=== PATIENT | male | born 1975 | race Caucasian/White ===

== ENCOUNTER → 2017-11-21 14:07 | Outpatient (CLI) | payer OTHER, SELFPAY ==
--- NOTE | 2017-11-21 | LES_PTH ---
PATIENT: TRACY MANRIQUE Jr. LOC: JUS U#:[id number] AGE/SX: 49/M ROOM: RE11/21/[address]: Dr. Poli Templeton MD : 1975 BED: DIS: SPEC #: [id number] RECD: 11/21/17 14:38 STATUS: BASILIO RALF #: [id number] JEY: 11/21/17 00:[address]: Poli Templeton DEPT: SURGICAL PATHOLOGY RECD BY: Alejandro Barrera ENTERED: 11/21/17 14:39 SP TYPE: Lesion OTHR DR: Dr. Viraj Arias MD Tissues: Skin of neck, NOS Procedures: Surgery Specimen Level IV HEADER OPERATION: Shave biopsy skin lesion anterior neck PRE-OP DIAGNOSIS: Anterior neck skin lesion TISSUE SUBMITTED: Shave biopsy skin lesion anterior neck MICROSCOPIC DIAGNOSIS Anterior neck skin lesion, shave biopsy: Consistent with benign keratosis. SJ:jack 11/22/17 MICROSCOPIC DESCRIPTION Slides are reviewed. GROSS DESCRIPTION Received in fixative is one container labeled with the patient's name and designated skin lesion anterior neck. The specimen consists of a piece of luu-white skin measuring 0.3 x 0.2 x 0.1 cm. The entire specimen is submitted in one cassette. / SJ:rg 11/21/17 TC:5 CPT: 78919
== END ==
PROVIDERS: Family Provider Family Medicine; PCP Family Medicine; Visit Provider Surgery
DX: L98.9 Disorder of the skin and subcutaneous tissue, unspecified (principal)
CPT/HCPCS: 88305

== ENCOUNTER 2018-03-15 19:40 | Emergency (ER) | payer OTHER, SELFPAY ==
[2018-03-15 19:41] VITALS: BP 177/118; PULSE 75; RESP 20; TEMP 36.7; O2SAT 97; BMI 32.5
--- NOTE | 2018-03-15 19:54 | CT_ITS ---
STUDY: CT CERVICAL SPINE WITHOUT CONTRAST REASON FOR EXAM: Male, 42 years old. Neck pain. RADIATION DOSAGE (If Supplied By Facility): CTDIvol = ( 27.23 ) mGy, DLP = ( 596.65 ) mGycm TECHNIQUE: High resolution transaxial imaging was performed without contrast material. Sagittal and coronal images were reconstructed. Individualized dose optimization techniques were used for this CT. COMPARISON: None FINDINGS: Normal craniovertebral junction. Normal anterior atlantoaxial articulation. Normal odontoid process. Normal cervical lordosis. Normal vertebral bodies and posterior osseous elements. C2-3: Normal endplates. Normal disc height and morphology. Normal central canal and intervertebral neuroforamina. C3-4: Normal endplates. Normal disc height and morphology. Normal central canal and intervertebral neuroforamina. C4-5: Normal endplates. Normal disc height and morphology. Normal central canal and intervertebral neuroforamina. C5-6: Endplate spondylosis. Central and paracentral disc bulge. Degenerative changes of the bilateral facet joints and uncovertebral joints. Moderate narrowing of the central canal and the bilateral intervertebral neural foramina. C6-7: Endplate spondylosis. Central and paracentral disc bulge. Degenerative changes of the bilateral facet joints and uncovertebral joints. Moderate narrowing of the central canal and the bilateral intervertebral neural foramina. C7-T1: Normal endplates. Normal disc height and morphology. Normal central canal and intervertebral neuroforamina. Normal visualized soft tissue structures. CT/Spine Cervical without Contras IMPRESSION: C5-6 and C6-7 degenerative changes, as described above. Electronically Signed: John Peñaloza MD at 20:58 EST Tel , Service support ,
--- NOTE | 2018-03-15 19:54 | CT_ITS ---
STUDY: CT BRAIN WITHOUT CONTRAST REASON FOR EXAM: Male, 42 years old. BLACKED OUT AND FELL AND HIT HEAD, LAC POSTERIOR RADIATION DOSAGE (If Supplied By Facility): CTDIvol = ( 44.99 ) mGy, DLP = ( 812.98 ) mGycm TECHNIQUE: Transaxial CT imaging of the brain was performed without administration of intravenous contrast material. Individualized dose optimization techniques were used for this CT. COMPARISON: None. FINDINGS: There is subcutaneous hematoma occipital region measures approximately 5 cm in greatest diameter and 1 cm in maximum thickness.. Normal calvarium. Normal size ventricles and extra-axial spaces for the patient's age. Normal white matter tracts of the cerebral hemispheres. Normal basal ganglia and thalami. Normal brainstem. Normal cerebellum. There is no intracranial hemorrhage. There are no findings of an acute ischemic infarction. There is mucoperiosteal inflammatory disease of the paranasal sinuses consistent with mild chronic sinusitis. CT/Brain/Head without Contrast IMPRESSION: There is no intracranial hemorrhage. Electronically Signed: John Peñaloza MD at 20:50 EST Tel , Service support ,
[2018-03-15] MEDS: Lidocaine/Epi/Tetracaine 50 ML 1 APPLIC TOPICAL (20:08)
--- NOTE | 2018-03-15 20:16 | ED.VISSUMM ---
- ER Visit Summary Date of Service: 03/15/18 Chief Complaint: Fall History of Present Illness: The patient is a 42 M presenting after fall. Patient slipped on ice and fell hitting the back of his head. He believes he briefly lost consciousness. He has pain to the back of his head with laceration. He is not on anticoagulants. He has had no vomiting. His tetanus is up-to-date. He denies other complaints. Physical Examination: Vitals are stable. Patient is afebrile. Alert no acute distress. HEENT exam 4 cm posterior scalp laceration with hematoma Neck is mild diffuse tenderness, no step off Lungs are clear and equal bilaterally. Heart is regular rate and rhythm. Abdomen is soft nontender nondistended. Extremities are unremarkable. Skin is warm and dry. No focal neurologic deficit. Remainder of exam is unremarkable. Emergency Department Course and Treatment: Laceration was cleansed, anesthesized with LET. Irrigated with saline. Anesthetized with local lidocaine. 4 alka are placed. 1, 5-0 simple suture was placed. CT head shows no intracranial bleeding. CT C-spine shows degenerative changes. Advised wound care instructions. Advised to follow-up with primary care physician. Advised return to ED if worsening complaints. Disposition: Discharge home Impression: Closed head injury, scalp laceration, laceration repair This note was generated with [employer] dictation software. It may contain incorrect words, spelling, and punctuation that were not noted in review of the chart prior to signing ED Disposition - Plan for ED Patient: Chief Complaint: Fall Instructions: ED Head Injury Closed Referrals: Viraj Arias MD [Primary Care Provider] -
--- NOTE | 2018-03-15 20:56 | ED.DEP ---
ED Disposition - Plan for ED Patient: Chief Complaint: Fall Instructions: ED Head Injury Closed Referrals: Viraj Arias MD [Primary Care Provider] -
== END 2018-03-15 21:31 | disposition home or self-care (01) ==
PROVIDERS: Emergency Provider Emergency Medicine; Family Provider Family Medicine; PCP Family Medicine
DX: S01.01XA Laceration without foreign body of scalp, initial encounter (principal); W00.9XXA Unspecified fall due to ice and snow, initial encounter; Y93.9 Activity, unspecified; Y92.9 Unspecified place or not applicable
CPT/HCPCS: 12002; 70450; 72125; 99283

== ENCOUNTER 2021-06-19 13:45 | Emergency (ER) | payer OTHER, SELFPAY ==
[2021-06-19] VITALS (7 sets, daily range): BP systolic 151–193; BP diastolic 91–115; PULSE 10–106; RESP 18–27; TEMP 37.3; O2SAT 93–97; BMI 31.5
--- NOTE | 2021-06-19 13:48 | EKG12_ITS ---
Test Reason : STROKE Blood Pressure : / mmHG Vent. Rate : 100 BPM Atrial Rate : 100 BPM P-R Int : 144 ms QRS Dur : 088 ms QT Int : 344 ms P-R-T Axes : 038 006 012 degrees QTc Int : 443 ms Normal sinus rhythm Poor R wave progression ST & T wave abnormality, consider lateral ischemia Abnormal ECG Confirmed by MAGDA FERGUSON, LUNA ([id number]), design editor SHILPI RAM ([id number]) on 06/20/2021 8:56:24 AM Referred By: Confirmed By:LUNA MAN MD
--- NOTE | 2021-06-19 13:48 | CT_ITS ---
We are attempting to reach an attending provider to discuss findings. An addendum with communication details will be sent when the communication is complete. STUDY: CT HEAD STROKE PROTOCOL W/O CONTRAST INJECTION REASON FOR EXAM: Male, 46 years old. Neuro deficit, acute, stroke suspected RADIATION DOSAGE (If Supplied By Facility): CTDIvol = ( ) mGy, DLP = ( ) mGycm TECHNIQUE: Transaxial CT imaging of the brain was performed without administration of intravenous contrast material. Individualized dose optimization techniques were used for this CT. COMPARISON: No relevant priors. FINDINGS: There is a parenchymal hematoma visualized within the right basal ganglia measuring 3.8 cm suggestive of a right lenticulostriate hypertensive hematoma. Mild the lateral side of subtle surrounding vasogenic edema is visualized. No evidence of other parenchymal hemorrhages is seen. No areas of low attenuation to suggest acute territorial infarct visualized. Mild asymmetry in the lateral ventricles is seen. Subtle circumferential mucoperiosteal disease visualized in the paranasal sinuses. The bones are unremarkable. CT/STROKE Brain/Head without Cont IMPRESSION: Right basal ganglia parenchymal hematoma measuring 3.8 cm suggestive of a right lenticulostriate hypertensive hematoma. Results were communicated to the patient''s physician at time of interpretation of the study at 2:00 PM. Electronically Signed: Howie Bethea MD at 14:04 EDT ,
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
[2021-06-19] MEDS: Nicardipine HCl-0.9% Sod Chlor 20 MG/200 ML IV.SOLN 50 MG IV (14:11)
[2021-06-19 14:12] LABS: Absolute Lymphocyte Count 3.03 X10^3/uL (0.83-4.51); Absolute Neutrophil Count 3.4 X10^3/uL (2.0-7.7); Basophil# 0.04 X10^3/uL; Basophil% 0.5 % (0-1); Eosinophil# 0.21 X10^3/uL; Eosinophils% 2.8 % (0-5); Hematocrit 47.3 % (40-54); Hemoglobin 16.6 g/dL (13.0-16.5); Lymphocyte # 3.03 X10^3/ul (0.83-4.51); Lymphocyte % 40.5 % (19-41); Mean Corp Hgb Conc 35.1 g/dL (32-36); Mean Corpuscular Hgb 33.5 pg (27.0-32.0); Mean Corpuscular Volume 95.6 fL (80-94); Mean Platelet Vol. 10.2 fl (6.2-12.0); Monocyte# 0.82 X10^3/uL; Monocyte% 10.9 % (0-10); NRBC Flagged by Analyzer 0 % (0-5); Neutrophil # 3.36 X10^3/uL (2.7-7.7); Neutrophil % 44.9 % (47-70); Platelet Count 234 K/mm3 (150-450); RBC Distribution Width CV 11.9 % (11.6-14.6); RBC Distribution Width SD 41.2 fl (35.1-43.9); Red Blood Count 4.95 M/mm3 (4.6-6.2); White Blood Count 7.5 K/mm3 (4.4-11.0)
[2021-06-19 14:22] LABS: International Normalized Ratio 1.1; Partial Thromboplast Time 26.6 Seconds (24.1-36.2); Prothrombin Time (Protime)PT. 13.4 SECONDS (11.7-14.9)
--- NOTE | 2021-06-19 14:27 | CM.ED ---
Addendum entered by Beckie Campbell 06/19/21 15:15: UNA Note: UNA provided patient's with directions to [facility] and information on parking Beckie KRAMER Original Note: UNA Note Referral Source: Stroke Alert Referral Reason: Stroke Alert SW met with patient's Larry and provided emotional support. UNA provided her with the address to [facility] ED. Plan: [facility] Beckie KRAMER
[2021-06-19 14:30] LABS: Anion Gap 10 (5-15); BUN 14 mg/dL (7-18); BUN/Creat Ratio 14.2 RATIO (10-20); Calcium,Total 9.3 mg/dL (8.5-10.1); Chloride 102 mmol/L (98-107); Creatinine, Serum 0.99 mg/dL (0.70-1.30); EST Glomerular Filtration Rate 86 mL/min (>60); Est Glom Filt Rate - Afr Amer 104 mL/min (>60); Estimated Creatinine Clearance 97.19 ml/min; Glucose 176 mg/dL (74-106); Potassium 3.3 mmol/L (3.5-5.1); Sodium Level 138 mmol/L (136-145); Troponin-I HS 6 pg/mL (3.0-78.0)
--- NOTE | 2021-06-19 14:35 | RAD_ITS ---
INDICATION: Neuro deficit, acute, stroke suspected EXAMINATION/TECHNIQUE: X-RAY - XR Chest 1 View COMPARISON: None. FINDINGS: Poor inspiratory effort is seen that limits evaluation. LINES/DEVICES: None. LUNGS: No consolidation, edema or effusion. No pneumothorax. Mild prominence of the perihilar bronchovascular markings most likely artifactual due to the poor inspiratory effort. MEDIASTINUM AND CARDIOVASCULAR STRUCTURES: Cardiac silhouette is apparently slightly prominent however this is most likely artifactual due to the poor inspiratory effort. BONES AND SOFT TISSUES: Unremarkable. RAD/Chest 1 View IMPRESSION: No radiographic evidence of acute cardiopulmonary disease. Electronically Signed: Howie Bethea MD at 15:10 EDT Reading Location ID and State: [facility] / [place] Tel , Service support ,
[2021-06-19 14:36] LABS: Bedside Glucose 174 mg/dL (74-106)
[2021-06-19] MEDS: fentaNYL 100 MCG/2 ML Ampul 25 MCG IV (14:51)
[2021-06-19] MEDS: Ondansetron 4 MG/2 ML Vial IV (14:51)
--- NOTE | 2021-06-19 15:19 | CHAPLAIN ---
Type of Pastoral Visit ___ Initial Visit ___ Follow-up Visit ___ On-call Visit ___ General Patient Visit ___ Spiritual Assessment ___ Family Conference ___ Bereavement _x__ Rapid Response ___ Code Blue ___ Other (describe below) Pastoral Care Referral From ___ Patient ___ Family ___ Nurse ___ Physician ___ Special Skills Officer ___ Vamp Seamer _x__ Other (describe below) Sacrament/Intervention ___ Active listening ___ Anointing ___ Hindu ___ Bereavement ___ Communion ___ Sumaya exploration ___ ___ Life review ___ Prayer ___ Reconciliation ___ Sacrament of Sick _x__ Supportive presence ___ Wedding ___ Other (describe below) Pastoral Comments was in ED and witnessed this patient walk in and declare I'm having a stroke to screener; pt was taken to room one and then to CT scan immediately; waited for spouse to come which she did; offered support and presence; support declined by spouse; pt is to be transferred to [place] for further treatment
--- NOTE | 2021-06-19 15:21 | ED.RN ---
[facility] crew has requested another bag of nicardipine for transport to [facility]. Pharmacy has been notifie.
== END 2021-06-19 15:24 | disposition short-term general hospital (02) ==
PROVIDERS: Emergency Provider Emergency Medicine; PCP Family Medicine; Visit Provider Emergency Medicine
DX: S00.93XA Contusion of unspecified part of head, initial encounter (principal); X58.XXXA Exposure to other specified factors, initial encounter
CPT/HCPCS: 70450; 71045; 80048; 82962; 84484; 85025; 85610; 85730; 93005; 96365; 96375; 99285; A4216; J2405

== ENCOUNTER 2021-06-27 15:04 | Inpatient (IN) | payer OTHER, SELFPAY ==
[2021-06-27 15:18] VITALS: BP 126/85; PULSE 68; RESP 16; TEMP 36.7; O2SAT 99; BMI 30.4
--- NOTE | 2021-06-27 15:18 | HP.PCM_ITS ---
[facility] - General General Date of Admission: 06/27/21 HPI Narrative TRACY MANRIQUE, is a 46 YO M with obesity and daily ETOH use/abuse ( stated at [facility] that he has 2-3 mixed hard liquor drinks per day and he was honest with me today and told me this as well) who presented to the ED at [facility] on 06/19/2021 complaining of sudden onset of left arm weakness and difficulty speaking while driving. He was on the phone with his at the time of onset. He pulled over and was unable to open the car door with his left arm and then proceeded drive himself to the ED. He felt off balance when walking into the emergency department. He was on no medications (including OTC meds) and denied any significant past medical history. Blood pressure at arrival to the emergency room was 193/115 with a pulse rate of 101. NIHSS at presentation was 7 and it increased to 12 while he was in the ED being worked up. Noncontrast CT brain showed a right basal ganglia parenchymal hematoma measuring 3.8 cm suggestive of a right lenticulostriate hypertensive hematoma. The EKG showed poor R wave progression and a nonspecific ST and T wave abnormality possibly due to lateral ischemia. He was started on a nicardipine drip and the ED physician contacted neurosurgery at [facility] who accepted him for transfer. Significant lab at [facility] included an elevated hemoglobin at 16.6 with an MCV increased at 95.6. Platelet count was normal. PT and PTT were normal. Random glucose was 176. High-sensitivity troponin was normal at 6. No drug screen was done. The initial NIHSS upon arrival to [facility] was 13. CTA of the head and neck was negative. He was admitted to the neuro-intensive care unit. MRI obtained the following day showed a right basal ganglia parenchymal hematoma with surrounding edema, mass-effect and a leftward shift of 7 mm. The findings were unchanged from previous CAT scans. There was no evidence of underlying enhancement or significant surrounding restricted diffusion. No surgical intervention was required. On 06/26/2021 he had diagnostic angiography in order to rule out a structural vascular lesion. The angiogram was normal without evidence of arteriovenous malformation or aneurysm. HGBA1C was 7.3% at [facility]. Total cholesterol was 213. Triglycerides were 80 and the HDL was 42 with a total calculated LDL of 155. NIHSS at [place] from [facility] was 8 ( facial palsy 2, left arm weakness 3, left leg weakness 1, numbness 1 and dysarthria 1). He did not have a TTE while at [facility]. Medications at discharge included 40 mg atorvastatin daily, enoxaparin 40 mg subcu daily for DVT prophylaxis, , lisinopril 10 mg twice daily and Glucophage 500 mg p.o. twice daily. Mr. Manrique was transferred to the in acute rehab unit at [facility] on 06/27/21 for 3 hours of therapy daily to restore function/independence at or near his prior level of function. [facility] Medical History (Updated 06/27/21 @ 17:[address] Monserrat Longoria DO) Obesity (BMI 30.0-34.9) Home Medications atorvastatin 40 mg PO QHS 06/27/21 [History Last Taken Unknown] lisinopril 10 mg PO BID 06/27/21 [History Last Taken Unknown] metformin 500 mg PO BID 06/27/21 [History Last Taken Unknown] Allergy/AdvReac Type Severity Reaction Status Date / Time acetaminophen [From Vicodin] Allergy PT UNSURE Verified 06/27/21 15:35 OF REACTION hydrocodone [From Vicodin] Allergy PT UNSURE Verified 06/27/21 15:35 OF REACTION Family History no significant family his Surgical History (Updated 06/27/21 @ 17:[address] Monserrat Longoria DO) H/O hernia repair H/O wisdom tooth extraction Skin tag Social History (Updated 06/27/21 @ 17:[address] Monserrat Longoria DO) adopted: No household members: spouse and other details: 1 son who is 16 months old. This is his 2nd marriage. 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 Vodka, Rum, [place]. He likes the taste. substance use type: does not use what type of physical activity do you participate in: additional details: no exercise other than walking around at work. ROS Constitutional Constitutional: Reports weakness; Denies anorexia, change in weight, chills, fatigue, fever(s) or night sweats Eyes Eyes: Denies blurry vision, change in vision, discharge from eye(s), double vision, erythema, eye pain, irritation, itchy eyes or loss of vision ENT HEENT: Reports dysphagia; Denies abnormal hearing, headache(s), hearing loss, loss taste/smell, nasal congestion, nasal discharge, post nasal drip, sinus pain or sore throat Cardiovascular Cardiovascular: Denies chest pain, claudication, dyspnea on exertion, edema, lightheadedness, orthopnea, palpitations, paroxysmal nocturnal dyspnea or syncope Respiratory/Chest Respiratory/Chest: Denies cough, dyspnea, shortness of breath at rest, shortness of breath with exertion or wheezing Gastrointestinal Gastrointestinal: Denies abdominal pain, constipation, diarrhea, dyspepsia, hematemesis, hematochezia, nausea or vomiting Genitourinary Genitourinary: Denies dysuria, hematuria, nocturia, urinary frequency, urinary hesitancy, urinary incontinence or urinary urgency Musculoskeletal Musculoskeletal: Denies back pain, joint pain, joint swelling or neck pain Integumentary Integumentary: Denies jaundice, rash or wounds Neurologic Neurologic: Reports abnormal gait, abnormal speech, focal weakness, lack of coordination, numbness, sensory deficit, tingling and weakness; Denies confusion, disequilibrium, dizziness, headache(s), paresthesias, seizures or tremor(s) Psychiatric Psychiatric: Reports other Details: He denies any hx of anxiety or depression but seems very tense when I am talking with him ; Denies anxiety, depression, homicidal ideation or suicidal ideation Endocrine Endocrinology: Denies change in body appearance, cold intolerance, heat intolerance, polydipsia or polyuria Hematologic/Lymphatic Hematologic/Lymphatic: Denies easy bleeding, easy bruising or lymphadenopathy Allergic/Immunologic Allergic/Immunologic: Denies rhinitis, eczemia or asthma Indicators for Scoring Admitted with or Primary Diagnosis of CVA/Stroke: Yes Hx of CVA/Stroke: Yes Modified Wilton Score MRS Score at time of Evaluation: 5-Severe disability NIHSS NIHSS 1a. Level of Consciousness: Alert; keenly responsive 1b. LOC Questions: Answers BOTH questions correctly. 1c. LOC Commands: Performs both tasks correctly. 2. Best Gaze: Normal 3. Visual: Complete hemianopia 4. Facial Palsy: Partial paralysis (total or near-total paralysis of lower face) 5a. Left Arm: No effort against gravity; arm falls 5b. Right Arm: No drift; arm holds 90 (or 45) degrees for full 10 seconds 6a. Left Leg: Drift; leg falls by the end of 5-seconds, but does not hit bed 6b. Right Leg: No drift; leg holds 30-degree position for full 5 seconds 7. Limb Ataxia: Absent 8. Sensory: [id number] sensory loss; (Left face, arm and leg.) 9. Best Language: [id number] aphasia; 10. Dysarthria: Hqhe-bq-felrbaaw dysarthria; 11. Extinction and Inattention: Visual, tactile, auditory, spatial, or personal inattention Total: 12 Stroke Questions Stroke Team Activated: No (The stroke has been completed and he is admitted to acute rehab unit now.) Physical Exam Const alert, oriented x3 and well nourished Constitutional Narrative: Seems a little update. He is frustrated about not being able to move himself around in the bed to get comfortable. Upper body is leaning to the left and he is unable to get straightened out. General Appearance: cooperative and well developed HEENT normocephalic and head/scalp atraumatic Mouth: dry mucous membranes Eyes PERRL and EOMs intact bilaterally Eyes Narrative: The left upper eyelid does not close as tightly as the left. Neck No nuchal rigidity, No nodes and No no carotid bruits General: trachea midline Lymph Lymphatic: Negative for lymphedema or lymphadenopathy Resp normal respiratory effort and clear to auscultation bilaterally Resp Narrative: Able to speak in complete sentences. Effort and Inspection: Negative for tachypneic, respiratory distress, labored or uses accessory muscles Auscultation: Negative for rales, rhonchi or wheezes Cardio regular rate, regular rhythm, S1 normal heart sound, S2 normal heart sound, no murmurs, no rub, no gallops and peripheral pulses 2+ throughout GI normal to inspection, nondistended, normoactive bowel sounds, soft to palpation and non-tender GI Narrative: No guarding with palpation Extremity no clubbing, cyanosis or edema and no calf tenderness Extremity Narrative: He bites his fingernails. General Extremity: no tenderness to palpation of joints or extremities Skin no jaundice and no petechiae Skin Narrative: The Left foot is cold to the touch and the toenails on that foot are blue. The DP and the PT pulses are 2+ BL. General Skin Exam: no breakdown and turgor normal Rashes: no rashes Wounds: Negative for wounds noted Neuro Neuro Narrative: See the NIHSS scoring. He can not lift the LUE off the bed but has some movement side to side. 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 He can lift the LLE off the bed a few inches and it drifts but did not hit the bed before 5 sec was up. Marked facial droop on the L. He is able to close his eyes BL but not as tightly on the L. He neglects the left side. Psych mental status grossly normal, cooperative, denies hallucinations, denies homicidal ideation and denies suicidal ideation Psych Narrative: He finally admitted to being upset about being where he is. Appearance: grossly normal, appropriate and well kempt Attitude: other He is obviously a little tense. Activity / Motor Behavior: fidgetting, restless and avoids eye contact Speech: slurred Mood & Affect: anxious and other He was irritable with nursing but, he was fine with me after we got talking. Thought Process: normal thought process Thought Content: normal thought content Attention / Concentration: attention grossly intact and concentration grossly intact Insight: fair Judgement: fair Assessment & Plan Assessment/Plan (1) Hemorrhagic stroke: (2) Essential (primary) hypertension: (3) Diabetes mellitus, type 2: (4) EtOH dependence: (5) Obesity (BMI 30.0-34.9): (6) Dyslipidemia: (7) Anxiety: PLAN: PLAN PT for gait stability OT for ADL's ST for evaluation Analgesics as needed - currently he has no pain and only Tylenol PRN has been ordered. Bowel protocol Post void residuals X3 Fall precautions Assess for Anxiety/Depression GI prophylaxis is not necessary. He has no history of peptic ulcer disease and he denies epigastric pain, nausea, vomiting, abdominal pain, heartburn. DVT prophylaxis with Lovenox 40 mg subcu daily and BALDEMAR hose bilaterally Follow up with neurology and Dr. Viraj Arias following DC from IP Rehab AM lab including CMP, CBC, Mag and Phos Trazodone PRN at HS for insomnia Obtain records of his last [address] Arias Needs a TTE following DC from rehab.......I am suspicious he may have LVH from uncontrolled HTN We discussed the SX of anxiety and depression and he will let me know if he is having any of the sx. I will also speak with his . Goal for the BP is < 120/80 LDL< 70 and a HGBA1C <7. Cook Dessert consult for education Education while in rehab to teach him his goals and how to prevent having another stroke. I think he may benefit from an SSRI but, will monitor for a few days and readdress his moods. Charges/Coding Visit Charges Inpatient E&M: 31922 Init Hosp L3
--- NOTE | 2021-06-27 15:39 | NURSING ---
pt arrived on unit. pt and made aware of Team and visiting hours, voices understanding
[2021-06-27 15:55] VITALS: BMI 30.4
[2021-06-27] MEDS: metFORMIN HCl 500 MG Tablet PO (17:03)
--- NOTE | 2021-06-27 18:02 | REHABEVAL_ITS ---
Admission Information Primary Diagnosis:: Post hemorrhagic stroke debility with L hemiparesis, mild aphasia, dysarthria, left homonymous hemianopia and left side neglect. Status Changes from Prescreening?: No changes Identified Actual Problem List:: Falls, Cognitve Impr/Memory Loss, Alteration in Sleep, Mobility Impaired, Self Care Deficit, Ineffective Communication, Know.Dfct/Disease Process, Know.Dfct of Medicaitons, BP, Hypertension and Alteration-Leisure Activ. Potential Problem List:: DVT, Bleeding, Infection, UTI, Aspiration, Falls, Skin Integrity and Depression Risk of Complications DVT: LMWH and BALDEMAR Hose Bleeding: Monitor Lab Values, Nursing to Teach Precautions for anti-coagulation therapy., Wound, if applicable, to be assessed every shift. and Stroke patients assessed for lethargy or change in status. Infection: Clinical Staff to Monitor for S/S of infection: and S/S of infection include fever, redness, warmth, etc. Urinary Tract Infection: Monitor for frequency, burning, discomfort, or incontinence. and Nursing will obtain urine sample for urinalysis and C&S when ordered. Aspiration: Clinical staff will monitor for coughing, drooling, congestion., Speech will evaluate swallowing and dsyphasia. and Nursing will monitor patient swallowing during meals. Falls: Patient will be evaluated for Fall Precautions and Patient will be placed on Fall Precautions as indicated per protocol. Skin Breakdown: Nursing will assess skin daily using assessment tool. and Nursing will place on Skin Breakdown Precautions as indicated. Pain: Clinical staff will assess patient's pain level per protocol., Medications will be given, if needed, and the pain level reassessed. and Other methods: Massage, distraction, decrease stimulus, etc. used PRN. Plan of Care Patient requires physician specializing in physical medicine and rehab oversight to provide close medical supervision of rehab issues including: Pain Management, Sleep Problems, Bowel and Bladder, Medical and co-morbidity Management, DVT prophylaxis, Rehabilitation Leadership and Coordination of treatment team Patient needs Physical Therapy: For a minimum of 1 hour and At least 5 out of 7 days Patient needs Physical Therapy to improve:: Mobility, Strengthening, Transfers, Stretching, ROM, Endurance, Stairs, Gait and Balance Patient needs Occupational Therapy: For a minimum of 1 hour and At least 5 out of 7 days Patient needs Occupational Therapy to improve ADL's incl.: Eating, Grooming, Bathing, Dressing, Toileting, Toilet transfers, Community Reintegration, Higher functioning activities, Household tasks, Adaptive Equipment, Splinting and Other activities as determined Patient requires speech therapy: For a minimum of 1 hour and At least 5 out of 7 days Patient requires speech therapy for: Swallowing, Cognition, Language Skills and Compensatory Strategies Patient requires 24/ Rehabilitation Nursing for: Pain Issues, Identifying and preventing risk factors, Monitoring and reporting current medical conditions, Assisting with ambulation, transfer, and all ADL's, Teaching patients about disease process and medications, Family teaching, Providing safe environment, Bowel and Bladder Issues, Skin integrity and Medication Management Patient needs Policy Writer Typist/ Case Management for: Discharge Planning, Arranging Home Equipment or Services and Family Interventions Patient needs Dietary and Nutrition Services for: Adequate Nutrition, Nutritional Supplements and Nutritional Education Goals Patient will remain: free from falls and or injury at time of discharge. Patient will perform bed mobility at: MOD I level of assist. Patient will complete transfers from bed to chair at: MOD I level of assist. Patient will ambulate: with LRD and - (200 feet at standby assist with the least restrictive device) Patient will complete upper body dressing at: Standby Assist. Patient will complete lower body dressing at: - (Contact-guard assist level with compensatory techniques and minimal cues for sequencing and to regard the left side) Patient will complete toileting at: - (On and off elevated commode and toileting tasks that contact-guard assist) Patient will perform bathing at: - (Minimal assistance with bathing tasks and contact-guard assist with shower chair/tub bench surfaces) Patient will complete grooming at: Standby Assist. Patient will achieve: - (1 curb step and 14 steps with 1 handrail at contact- guard assist to allow entry to his bedroom/bathroom.) Patient will have pain level of: of 3 or less Patient's skin will: remain intact Patient will receive: adequate nutrition. Discharge Planning Pt Prognosis for Sig. Practical Improv. w/in Reasonable Time: Good Estimated Length of stay (days): 28 Anticipated D/C Destination: Home w/ family or friends Was Preadmission Assessment Accurate?: Yes
[2021-06-27 18:47] VITALS: O2SAT 95
[2021-06-27 19:19] VITALS: BP 120/82; PULSE 74; RESP 16; TEMP 36.6; O2SAT 98
[2021-06-27 19:56] VITALS: PULSE 76; RESP 16
[2021-06-27] MEDS: Lisinopril 10 MG Tablet PO (20:03)
[2021-06-27] MEDS: Atorvastatin Calcium 40 MG Tablet PO (20:04)
[2021-06-27 23:19] VITALS: BMI 30.4
[2021-06-28 05:48] LABS: Absolute Lymphocyte Count 1.72 X10^3/uL (0.83-4.51); Absolute Neutrophil Count 2.7 X10^3/uL (2.0-7.7); Basophil# 0.03 X10^3/uL; Basophil% 0.5 % (0-1); Eosinophil# 0.16 X10^3/uL; Eosinophils% 2.9 % (0-5); Hematocrit 44.5 % (40-54); Hemoglobin 15.7 g/dL (13.0-16.5); Lymphocyte # 1.72 X10^3/ul (0.83-4.51); Lymphocyte % 31.3 % (19-41); Mean Corp Hgb Conc 35.3 g/dL (32-36); Mean Corpuscular Hgb 34.1 pg (27.0-32.0); Mean Corpuscular Volume 96.7 fL (80-94); Mean Platelet Vol. 10.2 fl (6.2-12.0); Monocyte# 0.82 X10^3/uL; Monocyte% 14.9 % (0-10); NRBC Flagged by Analyzer 0 % (0-5); Neutrophil # 2.74 X10^3/uL (2.7-7.7); Neutrophil % 49.9 % (47-70); Platelet Count 175 K/mm3 (150-450); RBC Distribution Width CV 11.9 % (11.6-14.6); RBC Distribution Width SD 42.3 fl (35.1-43.9); White Blood Count 5.5 K/mm3 (4.4-11.0)
[2021-06-28] MEDS: Enoxaparin 40 MG/0.4 ML Syringe SC (06:09)
[2021-06-28 06:45] LABS: Bedside Glucose 119 mg/dL (74-106)
[2021-06-28 06:53] LABS: ALB/GLOB Ratio 1.2 RATIO (0.9-2.4); AST(SGOT) 26 U/L (15-37); Alanine Aminotransfer ALT/SGPT 73 U/L (16-61); Albumin, Serum 3.9 g/dL (3.2-5.0); Alkaline Phosphatase 61 U/L (45-117); Anion Gap 6 (5-15); BUN 14 mg/dL (7-18); BUN/Creat Ratio 14.2 RATIO (10-20); Calcium,Total 8.8 mg/dL (8.5-10.1); Chloride 103 mmol/L (98-107); Creatinine, Serum 0.99 mg/dL (0.70-1.30); EST Glomerular Filtration Rate 86 mL/min (>60); Est Glom Filt Rate - Afr Amer 104 mL/min (>60); Estimated Creatinine Clearance 94.22 ml/min; Globulin 3.3 g/dL (2.2-4.2); Glucose 121 mg/dL (74-106); Magnesium 2.4 mg/dL (1.6-2.6); Phosphorus 3.4 mg/dL (2.5-4.9); Potassium 4.4 mmol/L (3.5-5.1); Protein, Total 7.2 g/dL (6.4-8.2); Sodium Level 135 mmol/L (136-145)
[2021-06-28 07:21] VITALS: BP 128/83; PULSE 59; RESP 18; TEMP 36.2; O2SAT 99
[2021-06-28] MEDS: metFORMIN HCl 500 MG Tablet PO ×2 (07:42→17:03)
[2021-06-28] MEDS: Lisinopril 10 MG Tablet PO ×2 (07:42→20:09)
[2021-06-28] MEDS: Acetaminophen 325 MG Tablet 650 MG PO ×2 (07:50→17:03)
--- NOTE | 2021-06-28 10:36 | PN_ITS ---
Subjective Subjective Afebrile VSS -the blood pressure has ranged from 120/82-120 6/85 since arrival in the rehab unit. Heart rate has ranged from 68-74. Maintaining appropriate oxygen saturation on RA Oral intake is being monitored He is not incontinent of urine and the post void residual last night was 0. Discussed with nursing - no problems that need addressed Reviewed the PT/OT/ST notes - The ST came to see me after she evaluated Jay and he has some very significant cognitive dysfunction. Not able to follow instructions. Not doing any of the tasks on the left hand side of the page. Can not understand why he is having to do these tasks. He does not see a problem with his thinking and is unaware of his deficits. He is impatient. Seems angry but denies. Medication list reviewed. The blood sugar record was reviewed. The FBS this morning is 119. All lab was personally reviewed. CBC is on remarkable with the exception of an increased MCV. Sodium is mildly decreased at 135 and the potassium is 4.4. The BUN is 14 with a creatinine of 0.99 which is stable. Phosphorus and magnesium are normal. ALT is mildly elevated but, the AST is normal. Objective Data Objective Data Vital Signs: Vital Signs Temp Pulse Resp BP Pulse Ox 97.2 F L 59 L 18 128/83 H 99 06/28/21 07:21 06/28/21 07:21 06/28/21 07:21 06/28/21 07:21 06/28/21 07:21 Oxygen Delivery Method Room Air Weight: 212 lb 8.41 oz Body Mass Index (BMI) 30.4 Intake & Output: Intake and Output for Last 24 Hours 06/26/21 06/27/21 06/28/21 23:59 23:59 23:59 Intake Total 390 / 390 510 / 510 Output Total 300 / 300 475 / 475 Balance 90 / 90 35 / 35 Lab / Micro Data Result Diagrams: 06/28/21 05:34 06/28/21 05:34 Labs: Laboratory Results - last 24 hr 06/28/21 05:34: WBC 5.5, RBC 4.60, Hgb 15.7, Hct 44.5, MCV 96.7 H, MCH 34.1 H, MCHC 35.3, RDW Std Deviation 42.3, RDW Coeff of Parrish 11.9, Plt Count 175, MPV 10.2, Immature Gran % (Auto) 0.500, Neut % (Auto) 49.9, Lymph % (Auto) 31.3, Rolette % (Auto) 14.9 H, Eos % (Auto) 2.9, Baso % (Auto) 0.5, Absolute Neuts (auto) 2.7, Absolute Lymphs (auto) 1.72, Nucleated RBC % 0 06/28/21 05:34: Sodium 135 L, Potassium 4.4, Chloride 103, Carbon Dioxide 26.0, Anion Gap 6, BUN 14, Creatinine 0.99, Estim Creat Clear Calc 94.22, Est GFR (MDRD) Af Amer 104, Est GFR (MDRD) Non-Af 86, BUN/Creatinine Ratio 14.2, Glucose 121 H, Calcium 8.8, Phosphorus 3.4, Magnesium 2.4, Total Bilirubin 1.00, AST 26, ALT 73 H, Alkaline Phosphatase 61, Total Protein 7.2, Albumin 3.9, Globulin 3.3, Albumin/Globulin Ratio 1.2 06/28/21 06:14: POC Glucose 119 H Physical Exam Const alert, oriented x3 and no apparent distress Constitutional Narrative: He is cooperating with therapy. Does not see the point of ST because he is unaware of the cognitive deficit which is considerable......I reviewed his testing from today with the ST. General Appearance: well kempt and well developed Eyes PERRL and EOMs intact bilaterally Neck supple Resp normal respiratory effort and clear to auscultation bilaterally Cardio regular rate, regular rhythm and no gallops GI normal to inspection, nondistended, normoactive bowel sounds, soft to palpation and non-tender Extremity Extremity Narrative: The left foot is cool to the touch and purplish from venous HTN more likely than not due to the muscle weakness in the Left leg not moving the blood along. General Extremity: edema left Skin General Skin Exam: no breakdown Rashes: no rashes Neuro Neuro Narrative: Left hemiparesis, L facial droop, left side neglect, L homonymous hemianopia and significant cognitive dysfunction which he is not aware of. Psych Psych Narrative: He is cooperating with therapy but, he is argumentative. He is terse and seems angry when I talk with him. He denies being anxious or depressed. Assessment & Plan Assessment/Plan (1) Hemorrhagic stroke: (2) Cognitive dysfunction due to acute cerebrovascular accident (CVA): (3) Left-sided neglect: (4) Facial droop: (5) Left hemiparesis: (6) Left homonymous hemianopsia: (7) Essential (primary) hypertension: (8) Diabetes mellitus, type 2: (9) Dyslipidemia: (10) EtOH dependence: (11) Obesity (BMI 30.0-34.9): PLAN: 1. Continue PT/OT/ST. 2. Goal for blood pressure at discharge is less than 120/80. 3. Blood sugars are well controlled with no hypoglycemia. Goal for his hemoglobin A1c is less than 7. 4. Continue atorvastatin and recheck a lipid panel, liver panel and CPK in 4 to 6 weeks. No complaints of muscle pain. 5. Continue stroke prevention education. 6. I am undecided if he is depressed/anxious and that is why he is sarcastic a nd argumentative or if this is his personality? Will continue to observe and will discuss with SW after she completes the depression inventory with him. Arguing with the therapists is not in his best interest because he is resistant to what they are trying to teach him and this will impair progress toward restoring function to his previous level. I think his attitude and lack of awareness of his deficits will be an obstacle to improvement. Charges/Coding Visit Charges Inpatient E&M: 78404 Subs Hosp L2
[2021-06-28 14:00] VITALS: O2SAT 98
[2021-06-28 14:57] VITALS: BMI 30.4
[2021-06-28 16:11] LABS: Bedside Glucose 112 mg/dL (74-106)
[2021-06-28 19:01] VITALS: BP 127/69; PULSE 69; RESP 15; TEMP 37; O2SAT 98
[2021-06-28 19:56] VITALS: BMI 30.4
[2021-06-28] MEDS: Atorvastatin Calcium 40 MG Tablet PO (20:08)
[2021-06-28 20:11] VITALS: PULSE 84; RESP 16; O2SAT 98
[2021-06-29] MEDS: Enoxaparin 40 MG/0.4 ML Syringe SC (05:55)
[2021-06-29 07:00] LABS: Bedside Glucose 128 mg/dL (74-106)
[2021-06-29] MEDS: metFORMIN HCl 500 MG Tablet PO ×2 (07:32→16:15)
[2021-06-29] MEDS: Lisinopril 10 MG Tablet PO ×2 (07:33→22:43)
[2021-06-29 07:35] VITALS: BP 109/83; BP 133/78; PULSE 58; PULSE 63; RESP 16; TEMP 36.6; O2SAT 94
[2021-06-29 09:07] VITALS: PULSE 94; RESP 18; O2SAT 94
--- NOTE | 2021-06-29 10:36 | PN_ITS ---
Subjective Subjective Afebrile VSS blood pressure since admission have ranged from 109/83 to 133/78. Maintaining appropriate oxygen saturation on RA Oral intake is fair. I saw a food container in the refrigerator with his name on it and it was [place]ian with lots of cheese and sour cream. He was incontinent of urine last night but has only had 1 episode of urinary incontinence since admission and just missed the hat. He is continent of stool. Discussed with nursing - no problems that need addressed. Nursing tells me he slept well last night and he was cooperative. Reviewed the PT/OT/ST notes Medication list reviewed. The blood sugar record was reviewed. Blood sugars are well controlled with no hypoglycemia. Jay's only complaint today is some bilateral hip pain and he also states he feels like he is off balance when he is standing. I explained to him that this is due to the stroke and the point of therapy is to retrain the brain to be able to maintain balance. He denies chest pain, shortness of breath, naus ea/vomiting, abdominal pain, dysuria, vertigo, cephalgia and calf pain. Objective Data Objective Data Vital Signs: Vital Signs Temp Pulse Resp BP Pulse Ox 97.8 F 94 18 133/78 H 94 06/29/21 07:35 06/29/21 09:07 06/29/21 09:07 06/29/21 07:35 06/29/21 09:07 Oxygen Delivery Method Room Air Weight: 212 lb 8.41 oz Body Mass Index (BMI) 30.4 Intake & Output: Intake and Output for Last 24 Hours 06/27/21 06/28/21 06/29/21 23:59 23:59 23:59 Intake Total 390 / 390 510 / 510 370 / 370 Output Total 300 / 300 475 / 475 Balance 90 / 90 35 / 35 370 / 370 Lab / Micro Data Result Diagrams: 06/28/21 05:34 06/28/21 05:34 Labs: Laboratory Results - last 24 hr 06/28/21 16:04: POC Glucose 112 H 06/29/21 05:53: POC Glucose 128 H Physical Exam Const alert and oriented x3 Constitutional Narrative: Sometimes cooperative and sometimes argumentative. Seems somewhat emotionally labile. He was terse the first time I talked with him and the second time he was pleasant and appreciative of the help he is getting. HEENT normocephalic and head/scalp atraumatic Eyes PERRL and EOMs intact bilaterally Eyes Narrative: No jaundice, no scleral icterus, no conjunctival injection and no discharge from the eyes. Neck supple Lymph Lymphatic: no lymphedema noted Resp normal respiratory effort and clear to auscultation bilaterally Resp Narrative: Able to speak in complete sentences. Not tachypneic, no accesso ry muscle use. Cardio regular rate, regular rhythm, no murmurs and no gallops GI normal to inspection, nondistended, normoactive bowel sounds, soft to palpation and non-tender GI Narrative: Having regular bowel movements. Extremity Extremity Narrative: Less edema in the R ankle today since he has been wearing the BALDEMAR hose. Skin General Skin Exam: no breakdown Wounds: Negative for wounds noted Neuro Neuro Narrative: He fatigues very easily. He is unaware of how much assistance the therapists are having to give him. He was unable to stand up from the WC today without assistance from PT. He also is not fully aware of his deficits. He walked 27' with the HW with mod-max assist of 1. Soft knee on the left but he is able to slide the Left foot forward on his own......he gets VC's to lift the leg and not slide. He has a slipper sock on the left foot. At the end of the PT session today he needed max assist to go the last 20' with poor mechanics . OT felt he fatigued easily as well and was not aware of how much she was assisting him. total assist with LB dressing and with toileting/toilet transfer. Tries to sit on the mat before he is totally over the mat......unaware of the Left side neglect. Psych denies hallucinations, denies homicidal ideation and denies suicidal ideation Psych Narrative: He is emotionally labile Sometimes argumentative - primarily with the therapists. Pleasant 1 minute and short/sarcastic with people the next. I spoke with his today and she says this is not his personality. She inquired about starting an anti-depressant because she noticed the same behavior with the nurses at [facility]. Appearance: well kempt Attitude: No aggressive, No hostile and other agitated and argumentative at times and pleasant and cooperative at other times. Activity / Motor Behavior: avoids eye contact and other He avoids eye contact when I am talking to him and looks at the TV. When he wants to ask me a questi on he turned the TV off and looked at me. Mood & Affect: irritable, tearful and blunted affect Thought Process: No flight of ideas and loose associations Thought Content: No hallucination(s) Attention / Concentration: attention grossly impaired and concentration grossly impaired Memory / Cognition: cognition impaired Insight: poor Judgement: limited Assessment & Plan Assessment/Plan (1) Hemorrhagic stroke: PLAN: Continue therapy BP is near goal. Continue the Lisinopril 10 mg BID. Educated him in the importance of controlling the BP, DM and HLD if he wants to prevent additional strokes going forward. He wants to go home as soon as possible and tells me that his brother from [place] is coming to help him when he gets home. I explained once again that getting home as quickly as possible is not in his best interest if he wants to be anywhere near his previous state of function and independence. His will talk to him about an antidepressant when she comes in later today. She would like him to be started on an antidepressant. Will allow her to wheel him outside since he is able to sit up in the WC without leaning to the left hard. He is allowed to visit outside with his children. I think this is important for emotional support. 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 (4) Facial droop: PLAN: this is not as prominent as it was at admission. (5) Left hemiparesis: PLAN: Unaware of how much assistance the therapists are giving him with tasks. Fatigues easily. (6) Left homonymous hemianopsia: (7) Essential (primary) hypertension: PLAN: Near goal. Continue the current medication. I think if we could get anxiety under control the BP would go down. (8) Diabetes mellitus, type 2: PLAN: Controlled with no hypoglycemia. Will need dietary education and the land management supervisor plans on meeting with Jay and his prior to DC. Charges/Coding Visit Charges Inpatient E&M: 31974 Subs Hosp L2
[2021-06-29] MEDS: Acetaminophen 325 MG Tablet 650 MG PO (16:14)
[2021-06-29 16:45] LABS: Bedside Glucose 123 mg/dL (74-106)
[2021-06-29 20:59] VITALS: BP 127/79; PULSE 68; RESP 14; TEMP 35.9; O2SAT 96
[2021-06-29] MEDS: Atorvastatin Calcium 40 MG Tablet PO (22:43)
[2021-06-30 01:44] VITALS: BMI 30.4
[2021-06-30] MEDS: Enoxaparin 40 MG/0.4 ML Syringe SC (05:12)
[2021-06-30 06:30] LABS: Bedside Glucose 140 mg/dL (74-106)
[2021-06-30 07:24] VITALS: BP 136/71; PULSE 61; RESP 16; TEMP 36.2; O2SAT 97
[2021-06-30] MEDS: metFORMIN HCl 500 MG Tablet PO ×2 (08:10→17:33)
[2021-06-30] MEDS: Lisinopril 10 MG Tablet PO ×2 (08:11→21:00)
[2021-06-30] MEDS: Acetaminophen 325 MG Tablet 650 MG PO (08:17)
[2021-06-30 12:15] LABS: Bedside Glucose 118 mg/dL (74-106)
[2021-06-30 12:36] VITALS: BMI 30.4
[2021-06-30 17:51] LABS: Bedside Glucose 101 mg/dL (74-106)
[2021-06-30 19:41] VITALS: BP 123/81; PULSE 60; RESP 16; TEMP 36.7; O2SAT 98
[2021-06-30] MEDS: Atorvastatin Calcium 40 MG Tablet PO (21:01)
[2021-06-30] MEDS: busPIRone 5 MG Tablet PO (21:01)
[2021-07-01 05:00] VITALS: BMI 30.4
[2021-07-01] MEDS: Enoxaparin 40 MG/0.4 ML Syringe SC (06:25)
[2021-07-01] MEDS: busPIRone 5 MG Tablet PO ×3 (06:25→20:28)
[2021-07-01] MEDS: Acetaminophen 325 MG Tablet 650 MG PO (06:26)
[2021-07-01 06:46] LABS: Bedside Glucose 100 mg/dL (74-106)
[2021-07-01 08:00] VITALS: BP 107/68; PULSE 63; RESP 20; TEMP 35.9; O2SAT 100
[2021-07-01] MEDS: Lisinopril 10 MG Tablet PO ×2 (09:01→20:28)
[2021-07-01] MEDS: Sertraline 50 MG Tablet PO (09:01)
[2021-07-01] MEDS: metFORMIN HCl 500 MG Tablet PO ×2 (09:01→16:05)
[2021-07-01 16:06] LABS: Bedside Glucose 118 mg/dL (74-106)
[2021-07-01 16:27] VITALS: BMI 30.4
[2021-07-01 20:04] VITALS: BP 131/84; PULSE 61; RESP 14; TEMP 36.2; O2SAT 95
[2021-07-01] MEDS: Atorvastatin Calcium 40 MG Tablet PO (20:28)
[2021-07-02] MEDS: Enoxaparin 40 MG/0.4 ML Syringe SC (06:48)
[2021-07-02] MEDS: busPIRone 5 MG Tablet PO ×3 (06:48→21:23)
[2021-07-02 07:21] LABS: Bedside Glucose 114 mg/dL (74-106)
[2021-07-02] MEDS: Lisinopril 10 MG Tablet PO ×2 (07:57→21:23)
[2021-07-02] MEDS: metFORMIN HCl 500 MG Tablet PO ×2 (07:57→17:44)
[2021-07-02] MEDS: Sertraline 50 MG Tablet PO (07:58)
[2021-07-02 08:30] VITALS: BP 125/83; PULSE 67; RESP 16; TEMP 36.1; O2SAT 96
[2021-07-02 14:09] VITALS: BMI 30.4
[2021-07-02 17:16] LABS: Bedside Glucose 104 mg/dL (74-106)
--- NOTE | 2021-07-02 18:21 | NURSING ---
Patient did well with nursing. Ambulated down hallway with 4 rest breaks with w/c follow and approximately 60 feet total. Left arm flaccid, left leg severe weakness and tires with mobility.
[2021-07-02 20:11] VITALS: BP 120/83; PULSE 74; RESP 14; TEMP 36.3; O2SAT 94
[2021-07-02] MEDS: Atorvastatin Calcium 40 MG Tablet PO (21:23)
[2021-07-03] MEDS: Enoxaparin 40 MG/0.4 ML Syringe SC (06:37)
[2021-07-03] MEDS: busPIRone 5 MG Tablet PO ×3 (06:37→20:11)
[2021-07-03 07:25] LABS: Bedside Glucose 113 mg/dL (74-106)
[2021-07-03 07:30] VITALS: BP 129/80; PULSE 60; RESP 15; TEMP 36.1; O2SAT 97
[2021-07-03] MEDS: Sertraline 50 MG Tablet PO (07:59)
[2021-07-03] MEDS: Lisinopril 10 MG Tablet PO ×2 (07:59→20:11)
[2021-07-03] MEDS: metFORMIN HCl 500 MG Tablet PO ×2 (07:59→17:29)
--- NOTE | 2021-07-03 09:40 | PN_ITS ---
Subjective Subjective Jay was seen on team rounds today. His and he was present in the room. Afebrile VSS-blood pressure is well controlled and within goal. Heart rate is within normal limits. Maintaining appropriate oxygen saturation on RA Oral intake is good Discussed with nursing - no problems that need addressed Reviewed the PT/OT/ST notes. Still requiring a lot of VC's for proper sequencing and to slow down and focus on performing the task correctly and not just as fast as he can. Having trouble following instructions......he can verbalize the techniques but, can not do the technique. Poor safety awareness and poor insight into his deficits. The therapists feel the left side neglect is improving. Swallowing is going well with no choking or coughing. Medication list reviewed. Blood sugars are under excellent control with no hypoglycemia. He is upset about being awoken early in the AM and having to take pills. Nursing is going to change his medications to with breakfast in the AM. He denies chest pain, shortness of breath, palpitations, lightheadedness, cephalgia, nausea/vomiting/abdominal pain/cramping, dysuria and cough. Objective Data Objective Data Vital Signs: Vital Signs Temp Pulse Resp BP Pulse Ox 97.4 F L 74 14 120/83 H 94 07/02/21 20:11 07/02/21 20:11 07/02/21 20:11 07/02/21 20:11 07/02/21 20:11 Oxygen Delivery Method Room Air Weight: 206 lb 14.411 oz Body Mass Index (BMI) 30.4 Intake & Output: Intake and Output for Last 24 Hours 07/01/21 07/02/21 07/03/21 23:59 23:59 23:59 Intake Total 240 / 240 360 / 360 120 / 120 Balance 240 / 240 360 / 360 120 / 120 Lab / Micro Data Result Diagrams: 06/28/21 05:34 06/28/21 05:34 Labs: Laboratory Results - last 24 hr 07/02/21 17:11: POC Glucose 104 07/03/21 06:36: POC Glucose 113 H Physical Exam Const alert, oriented x3, no apparent distress and average body habitus General Appearance: cooperative, well kempt and well developed HEENT moist oral mucous membranes HEENT Narrative: facial droop Head and Scalp: normocephalic Eyes PERRL, EOMs intact bilaterally, conjunctivae normal and no scleral icterus Resp normal respiratory effort, normal air movement and clear to auscultation bilaterally Effort and Inspection: able to speak in complete sentences Cardio regular rate, regular rhythm, no murmurs and no gallops GI normal to inspection, nondistended, normoactive bowel sounds, soft to palpation and non-tender GI Narrative: no guarding with palpation Extremity no calf tenderness Extremity Narrative: trivial swelling of the left ankle Skin no wounds General Skin Exam: no breakdown Rashes: no rashes Neuro Neuro Narrative: decreased sensation of the Left face, arm and leg. Weakness of the left side, Arm> leg. Speech is less slurred and easier to understand. His voice is projecting better but still not much modulation in his voice during conversation. Psych cooperative Appearance: grossly normal Attitude: other Less anxious. Tells me that he is sleeping well. Seems to have settled in a little and is appreciative of the help he is getting here. Making better eye contact. 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 Continue sertraline and BuSpar. He has had no adverse reactions to date. 2. Continue ST/PT/OT 3. I talked with Chandni today about excess ETOH being a cause of ICH in addition to HTN. His HTN is mild so I suspect that ETOH may be playing a role in the ICH and I suspect he is under reporting how much he drinks. I recommended no more than 1 mixed drink a day. 4. Recommended he consider psychotherapy following DC both to learn how to cope with stress and how to manage stress without drinking or having to take a pill. I told him the Buspar is not addictive and and we do not want to trade ETOH for a benzo. 5. We discussed the risk factors for stroke and the goals of treatment for DM, HTN and HLD. 6. Sodium is very mildly decreased at 135......could be due to mild cerebral salt wasting due to the ICH. 7. Mobile Home Installer will meet with Chandni prior to DC and go over cardia, carb controlled diet. Had been doing Keto prior to stroke and I stressed the importance of lipid control in preventing additional strokes going forward. We stressed the importance of a low salt diet as well. He has a bag of pork rinds in his room for snacking on. Charges/Coding Visit Charges Inpatient E&M: 12085 Subs Hosp L2
[2021-07-03] MEDS: Acetaminophen 325 MG Tablet 650 MG PO (13:44)
--- NOTE | 2021-07-03 14:09 | CASEMGMT ---
Social Work IDT met with patient and for Team meeting. Discussed patient's progress in PT/OT/ST and nursing. Pt progressing well. However, IDT discussed the inattention, poor insight to deficits, and harriett/short-tempered demeanor, which reports is new since stroke. did start patient on antidepressant/antianxiety medication. Pt expressed some frustrations. Team validated feelings. Reassured pt goal is for pt to return home with family. Explained insurance NRD 07/11 and continued stay is not guaranteed. SW to continue to follow to assist with therapy and DME orders at OR. Will ReTeam next week. Erica Jenkins ,SPIKE MACHINE HEATER INTERPRETER AND TRANSLATOR
[2021-07-03 14:18] VITALS: BMI 30.4
[2021-07-03 16:26] LABS: Bedside Glucose 108 mg/dL (74-106)
[2021-07-03] MEDS: Atorvastatin Calcium 40 MG Tablet PO (20:11)
[2021-07-03 21:17] VITALS: BMI 30.4
[2021-07-03 22:27] VITALS: BP 127/74; PULSE 67; RESP 18; TEMP 36.5; O2SAT 94
--- NOTE | 2021-07-04 03:15 | NURSING ---
Reviewed and agree with SENIOR REGULATORY AFFAIRS SPECIALIST documentation and assessment charting.
[2021-07-04 06:50] LABS: Bedside Glucose 106 mg/dL (74-106)
[2021-07-04 07:32] VITALS: BP 119/73; PULSE 81; RESP 17; TEMP 36.6; O2SAT 93
[2021-07-04] MEDS: Sertraline 50 MG Tablet PO (08:39)
[2021-07-04] MEDS: metFORMIN HCl 500 MG Tablet PO ×2 (08:39→17:22)
[2021-07-04] MEDS: busPIRone 5 MG Tablet PO ×3 (08:39→21:54)
[2021-07-04] MEDS: Lisinopril 10 MG Tablet PO ×2 (08:39)
[2021-07-04] MEDS: Enoxaparin 40 MG/0.4 ML Syringe SC (08:42)
--- NOTE | 2021-07-04 13:40 | PCM.PROGNOTE ---
Subjective Subjective Afebrile VSS Maintaining appropriate oxygen saturation on RA Oral intake is fair. refused his first breakfast today and then ordered another later. Refused lunch. Discussed with nursing - no problems that need addressed Reviewed the PT/OT/ST notes Medication list reviewed. Blood sugar record was reviewed. All blood sugars are well controlled with no hypoglycemia. Jay tells me he slept well last night. He has no complaints and denies LUCIANO, ST, cough, dysuria, N/V/abd cramping, lightheadedness, SOB and calf pain. We had a talk about stress and the sx of anxiety and how people sometimes self medicate to control anxiety. We went over the sx of anxiety and he admits to having some of the sx. He tells me that the biggest thing making him anxious at this time is he wants to be involved in picking a new employee and work and so he wants me to allow him to go to work. 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 I again advised him to just forget about work at least for the next 3 months because he is going to need a lot more ST to get him close to where is cognitive function was prior to the stroke. He still has not given me any paperwork from his HR dept at work to fill out for his absence. I offered to increase the Buspar dose since he is not having any adverse side effects and he would rather hold off on making any changes at this time. He thought the TEAM meeting yesterday with Fredi present was very helpful and wondered if we could talk to Fredi over the phone next Saturday since Saturday is a very busy day for her at work and I told him we absolutely would. Objective Data Objective Data Vital Signs: Vital Signs Temp Pulse Resp BP Pulse Ox 97.9 F 81 17 119/73 93 07/04/21 07:32 07/04/21 07:32 07/04/21 07:32 07/04/21 07:32 07/04/21 07:32 Oxygen Delivery Method Room Air Weight: 206 lb 14.411 oz Body Mass Index (BMI) 30.4 Intake & Output: Intake and Output for Last 24 Hours 05/03/2507/03/21 07/04/21 23:59 23:59 23:59 Intake Total 360 / 360 480 / 480 Balance 360 / 360 480 / 480 Lab / Micro Data Result Diagrams: 06/28/21 05:34 06/28/21 05:34 Labs: Laboratory Results - last 24 hr 07/03/21 16:17: POC Glucose 108 H 07/04/21 05:52: POC Glucose 106 Physical Exam Const alert, oriented x3 and no apparent distress Resp normal respiratory effort, normal air movement and clear to auscultation bilaterally Resp Narrative: no coughing with deep breaths Effort and Inspection: Negative for tachypneic or uses accessory muscles Auscultation: Negative for rales, rhonchi or wheezes Cardio regular rate, regular rhythm, no murmurs, no rub and no gallops GI normal to inspection, nondistended, normoactive bowel sounds, soft to palpation, non-tender and non-distended GI Narrative: no guarding with palpation. Extremity Extremity Narrative: He is c/o pain in the hips again and it feels better with the heating pad. PT tells me that he is starting to get more tone in his left leg...spasms? General Extremity: edema left (left ankle and hand due to decreased muscular activity due to the stroke); Negative for clubbing or cyanosis Skin General Skin Exam: no breakdown Rashes: no rashes Wounds: Negative for wounds noted Neuro Neuro Narrative: I reviewed the therapy notes and he is making progress. He is now able to ascend/descend three 4 inch steps at max/mod assist x2. Still struggling to follow directions and he has poor safety awareness. He did 6 sit to stands in 30 sec yesterday with better form than last week. Psych Psych Narrative: He is restless and shaking his leg while sitting in the chair. He is making better eye contact unless I am talking about something he does not want to hear. He is trying to be less argumentative with the therapists and accept that they would not lie to him. He has a strong need to be in control and currently he is not in control of much and this contributes to his anxiety. Assessment & Plan Assessment/Plan (1) Hemorrhagic stroke: PLAN: Continue PT/OT/ST. 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 I once again reiterated that I feel he will benefit from psychotherapy post discharge to help him learn to deal with his disability and control his anxiety without pills or alcohol. (8) EtOH dependence: QUALIFIERS: Substance use status: uncomplicated Qualified Code(s): F10.20 - Alcohol dependence, uncomplicated PLAN: I advised abstinence or at most only 1 mixed drink a day. I feel like he is self medicating with alcohol to control his anxiety and 1 drink a day may lead to more.....it is a slippery slope. I would like for him to follow up at [facility] going forward but, he is overwhelmed at the present time and not ready to hear this. (9) Essential (primary) hypertension: PLAN: Controlled. Will continue the Lisinopril. (10) Diabetes mellitus, type 2: QUALIFIERS: Diabetes mellitus custodial insulin use: without custodial use Diabetes mellitus complication status: without complication Qualified Code(s): E11.9 - Type 2 diabetes mellitus without complications PLAN: Well controlled on an appropriate diet and Glucophage BID. Continue diet education. (11) Hyponatremia: PLAN: cerebral salt wasting due to the stroke? Recheck a BMP tomorrow. Charges/Coding Visit Charges Inpatient E&M: 74638 Subs Hosp L2
[2021-07-04 15:45] VITALS: BMI 30.4
[2021-07-04 17:30] LABS: Bedside Glucose 104 mg/dL (74-106)
[2021-07-04 19:22] VITALS: BP 148/85; PULSE 65; RESP 16; TEMP 36.3; O2SAT 95
[2021-07-04 21:47] VITALS: BMI 30.4
[2021-07-04] MEDS: Atorvastatin Calcium 40 MG Tablet PO (21:54)
[2021-07-04 22:00] VITALS: PULSE 69; RESP 16; O2SAT 98
[2021-07-05 06:29] LABS: Anion Gap 7 (5-15); BUN 15 mg/dL (7-18); BUN/Creat Ratio 17.4 RATIO (10-20); Calcium,Total 9.2 mg/dL (8.5-10.1); Chloride 105 mmol/L (98-107); Creatinine, Serum 0.86 mg/dL (0.70-1.30); EST Glomerular Filtration Rate 101 mL/min (>60); Est Glom Filt Rate - Afr Amer 122 mL/min (>60); Estimated Creatinine Clearance 108.46 ml/min; Glucose 90 mg/dL (74-106); Potassium 3.8 mmol/L (3.5-5.1); Sodium Level 135 mmol/L (136-145)
[2021-07-05 07:21] LABS: Bedside Glucose 88 mg/dL (74-106)
[2021-07-05 08:12] VITALS: BP 119/86; PULSE 69; RESP 18; TEMP 36.3; O2SAT 95
[2021-07-05] MEDS: busPIRone 5 MG Tablet PO ×3 (08:14→21:54)
[2021-07-05] MEDS: Lisinopril 10 MG Tablet PO ×2 (08:14→21:54)
[2021-07-05] MEDS: Sertraline 50 MG Tablet PO (08:14)
[2021-07-05] MEDS: Enoxaparin 40 MG/0.4 ML Syringe SC (08:14)
[2021-07-05] MEDS: metFORMIN HCl 500 MG Tablet PO ×2 (08:14→16:56)
--- NOTE | 2021-07-05 09:35 | PN_ITS ---
Subjective Subjective Afebrile VSS-blood pressure is well controlled Maintaining appropriate oxygen saturation on RA Oral intake is variable. Intake was poor yesterday and did not eat much for breakfast today. For lunch he had food from his dtr and he was eating better. Blood sugar record was reviewed. The fasting blood sugar today is 88. Discussed with nursing - no problems that need addressed Reviewed the PT/OT/ST notes Medication list reviewed. All lab was personally reviewed. Sodium is stable at 135. Potassium is 3.8. The BUN is 15 and the creatinine is stable and is 0.86 today. He has no complaints. He denies CP, SOB, palpitations, cephalgia, lightheadedness, dysuria, N/V/ abd pain/cramping. He has pain in both hips. the heating pad helps. Although he denied lightheadedness to me he complained of dizziness to the PT and the OT. Objective Data Objective Data Vital Signs: Vital Signs Temp Pulse Resp BP Pulse Ox 97.3 F L 69 18 119/86 H 95 07/05/21 08:12 07/05/21 08:12 07/05/21 08:12 07/05/21 08:12 07/05/21 08:12 Oxygen Delivery Method Room Air Weight: 206 lb 14.411 oz Body Mass Index (BMI) 30.4 Intake & Output: Intake and Output for Last 24 Hours 07/03/21 07/04/21 07/05/21 23:59 23:59 23:59 Intake Total 680 / 680 500 / 500 Balance 680 / 680 500 / 500 Lab / Micro Data Result Diagrams: 06/28/21 05:34 07/05/21 05:30 Labs: Laboratory Results - last 24 hr 07/04/21 17:21: POC Glucose 104 07/05/21 05:30: Sodium 135 L, Potassium 3.8, Chloride 105, Carbon Dioxide 23.0, Anion Gap 7, BUN 15, Creatinine 0.86, Estim Creat Clear Calc 108.46, Est GFR (MDRD) Af Amer 122, Est GFR (MDRD) Non-Af 101, BUN/Creatinine Ratio 17.4, Glucose 90, Calcium 9.2 07/05/21 06:46: POC Glucose 88 Physical Exam Const alert, oriented x3 and average body habitus General Appearance: cooperative Resp clear to auscultation bilaterally Effort and Inspection: able to speak in complete sentences Cardio regular rate, regular rhythm, no murmurs and no gallops GI normal to inspection, nondistended, normoactive bowel sounds, soft to palpation and non-tender Extremity no calf tenderness and no pedal edema Neuro Neuro Narrative: Still neglecting the left side and sitting on the left arm of the chair rather than on the seat. the slipper sock was removed from the left foot today and it was much more difficult for him to advance the Left foot.......he ambulated up to 20' and was very fatigued. The therapists are not sure if he is understanding what they are asking of him? He is min assist for grooming and mod assist for bathing today. Min assist for upper body dressing but max assist for lower body dressing. Still requiring total assistance for toileting and mod assist for toilet transfer ( max assist at admission). Still impulsive and doing exercise quickly rather than focusing on technique. Poor safety awareness and continues to be unaware of the degree of his deficits. Psych cooperative Appearance: grossly normal Mood & Affect: flat affect and other less angry than he was at admission. Insight: limited Judgement: limited Assessment & Plan Assessment/Plan (1) Hemorrhagic stroke: PLAN: continue the PT/OT/St to restore function at or near his previous ba juliocesar. monitor progress daily. Discuss his progress with therapists on a daily basis. Continue stroke prevention education. 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 Seems to be getting more answers correct. Still troubled with numbers/math. He is articulating better. (3) Left-sided neglect: PLAN: still a prominent feature in his deficits due to the stroke. Unaware of this a lot of the time.......like when he stands and pivots into the chair and ends up sitting on the L arm of the chair rather than the seat. Still arguing some with the PT when she tells him he should turn to the R when pivoting and looking for the chair......still wanting to turn left. (4) Hyponatremia: PLAN: Stable. May be due to Lisinopril. It is stable and only mildly decreased so no need for salt tabs or changing the Lisinopril at this time. (5) Diabetes mellitus, type 2: QUALIFIERS: Diabetes mellitus mcfp insulin use: without termite control service representative use Diabetes mellitus complication status: without complication Qualified Code(s): E11.9 - Type 2 diabetes mellitus without complications PLAN: Controlled. We discussed the importance of carbohydrate consistency with meals and not skipping meals since he is on Glucophage. Discussed the sx of Hypoglycemia and what to do if he feels hypoglycemic. He will need a glucometer at [place]. Continue to monitor the BS's BID. (6) Essential (primary) hypertension: PLAN: Controlled. (7) Dizziness on standing: PLAN: encouraged him to increase his fluid intake. Will check orthostatics now and in the AM. It may be dysequilibrium due to the stroke that he is sensing and not dizziness. He denies vertigo. Charges/Coding Visit Charges Inpatient E&M: 30485 Subs Hosp L2
[2021-07-05] MEDS: Acetaminophen 325 MG Tablet 650 MG PO (13:56)
[2021-07-05 14:02] VITALS: BMI 30.4
[2021-07-05 16:56] LABS: Bedside Glucose 98 mg/dL (74-106)
[2021-07-05 17:46] VITALS: BP 119/70; BP 129/74; PULSE 76; PULSE 78
[2021-07-05 19:49] VITALS: BP 134/79; PULSE 83; RESP 18; TEMP 36.1; O2SAT 97
[2021-07-05] MEDS: Arthritis Pain Compound 60 CLICK TUBE TOPICAL (21:52)
[2021-07-05] MEDS: Atorvastatin Calcium 40 MG Tablet PO (21:54)
[2021-07-06 00:10] VITALS: BMI 30.4
[2021-07-06] MEDS: Acetaminophen 325 MG Tablet 650 MG PO (06:22)
[2021-07-06] MEDS: Arthritis Pain Compound 60 CLICK TUBE TOPICAL ×3 (06:26→20:42)
[2021-07-06 06:55] LABS: Bedside Glucose 105 mg/dL (74-106)
[2021-07-06 07:29] VITALS: BP 128/56; PULSE 73; RESP 16; TEMP 35.8; O2SAT 94
[2021-07-06 07:52] VITALS: BP 110/66; BP 118/72; PULSE 60; PULSE 70
[2021-07-06] MEDS: busPIRone 5 MG Tablet PO ×3 (09:19→20:42)
[2021-07-06] MEDS: Sertraline 50 MG Tablet PO (09:19)
[2021-07-06] MEDS: metFORMIN HCl 500 MG Tablet PO ×2 (09:19→17:39)
[2021-07-06] MEDS: Enoxaparin 40 MG/0.4 ML Syringe SC (09:19)
[2021-07-06] MEDS: Lisinopril 10 MG Tablet PO ×2 (09:19→20:42)
[2021-07-06 16:51] LABS: Bedside Glucose 83 mg/dL (74-106)
[2021-07-06 17:00] VITALS: BMI 30.4
[2021-07-06 20:01] VITALS: BP 144/84; PULSE 76; RESP 18; TEMP 36.6; O2SAT 97
[2021-07-06] MEDS: Atorvastatin Calcium 40 MG Tablet PO (20:42)
[2021-07-06 22:44] VITALS: BMI 30.4
[2021-07-07] MEDS: Arthritis Pain Compound 60 CLICK TUBE TOPICAL ×3 (06:42→22:12)
[2021-07-07] MEDS: Acetaminophen 325 MG Tablet 650 MG PO ×2 (06:42→22:18)
[2021-07-07 07:01] LABS: Bedside Glucose 104 mg/dL (74-106)
[2021-07-07 07:15] VITALS: BP 130/82; PULSE 62; RESP 16; TEMP 36.6; O2SAT 99
[2021-07-07] MEDS: metFORMIN HCl 500 MG Tablet PO ×2 (07:48→16:56)
[2021-07-07] MEDS: Sertraline 50 MG Tablet PO (07:48)
[2021-07-07] MEDS: Lisinopril 10 MG Tablet PO ×2 (07:48→22:13)
[2021-07-07] MEDS: busPIRone 5 MG Tablet PO ×3 (07:48→22:13)
[2021-07-07] MEDS: Enoxaparin 40 MG/0.4 ML Syringe SC (07:48)
[2021-07-07 09:15] VITALS: O2SAT 98
[2021-07-07 09:21] VITALS: BMI 30.4
[2021-07-07 16:01] LABS: Bedside Glucose 85 mg/dL (74-106)
[2021-07-07 19:00] VITALS: BP 129/82; PULSE 70; RESP 17; TEMP 36.6; O2SAT 97
[2021-07-07] MEDS: Atorvastatin Calcium 40 MG Tablet PO (22:13)
[2021-07-08 03:23] VITALS: BMI 30.4
[2021-07-08 07:25] LABS: Bedside Glucose 94 mg/dL (74-106)
[2021-07-08 07:53] VITALS: BP 120/79; PULSE 58; RESP 17; TEMP 36.1; O2SAT 97
[2021-07-08] MEDS: Lisinopril 10 MG Tablet PO ×2 (08:06→21:21)
[2021-07-08] MEDS: Enoxaparin 40 MG/0.4 ML Syringe SC (08:06)
[2021-07-08] MEDS: Sertraline 50 MG Tablet PO (08:07)
[2021-07-08] MEDS: metFORMIN HCl 500 MG Tablet PO ×2 (08:07→16:27)
[2021-07-08] MEDS: busPIRone 5 MG Tablet PO ×3 (08:07→21:20)
[2021-07-08] MEDS: Arthritis Pain Compound 60 CLICK TUBE TOPICAL ×2 (13:46→21:20)
[2021-07-08 15:15] VITALS: BMI 30.4
[2021-07-08 16:21] LABS: Bedside Glucose 106 mg/dL (74-106)
[2021-07-08] MEDS: Atorvastatin Calcium 40 MG Tablet PO (21:20)
[2021-07-08 22:00] VITALS: BP 117/73; PULSE 88; RESP 14; TEMP 36.8; O2SAT 95
--- NOTE | 2021-07-09 03:31 | NURSING ---
Reviewed and agree with HARDWARE ENGINEERING MANAGER documentation and assessment charting.
[2021-07-09] MEDS: Arthritis Pain Compound 60 CLICK TUBE TOPICAL ×3 (06:53→20:23)
[2021-07-09 07:00] LABS: Bedside Glucose 86 mg/dL (74-106)
[2021-07-09 07:25] VITALS: BP 122/76; PULSE 64; RESP 16; TEMP 36.4; O2SAT 97
[2021-07-09] MEDS: Acetaminophen 325 MG Tablet 650 MG PO (08:48)
[2021-07-09] MEDS: metFORMIN HCl 500 MG Tablet PO ×2 (08:48→16:05)
[2021-07-09] MEDS: Enoxaparin 40 MG/0.4 ML Syringe SC (08:48)
[2021-07-09] MEDS: Lisinopril 10 MG Tablet PO ×2 (08:48→20:23)
[2021-07-09] MEDS: busPIRone 5 MG Tablet PO ×3 (08:48→20:23)
[2021-07-09] MEDS: Sertraline 50 MG Tablet PO (08:48)
[2021-07-09 14:03] VITALS: BMI 30.4
[2021-07-09 17:11] LABS: Bedside Glucose 88 mg/dL (74-106)
[2021-07-09 19:06] VITALS: BP 122/84; PULSE 70; RESP 17; TEMP 36.6; O2SAT 96
[2021-07-09] MEDS: Atorvastatin Calcium 40 MG Tablet PO (20:23)
[2021-07-09 20:32] VITALS: PULSE 76; RESP 16; O2SAT 98
[2021-07-09 20:35] VITALS: BMI 30.4
[2021-07-10 06:01] LABS: Bedside Glucose 85 mg/dL (74-106)
[2021-07-10 07:42] VITALS: BP 130/70; PULSE 62; RESP 16; TEMP 36.7; O2SAT 97
[2021-07-10] MEDS: busPIRone 5 MG Tablet PO ×3 (10:18→20:20)
[2021-07-10] MEDS: metFORMIN HCl 500 MG Tablet PO ×2 (10:18→17:56)
[2021-07-10] MEDS: Sertraline 50 MG Tablet PO (10:18)
[2021-07-10] MEDS: Lisinopril 10 MG Tablet PO ×2 (10:18→20:21)
[2021-07-10] MEDS: Enoxaparin 40 MG/0.4 ML Syringe SC (10:19)
--- NOTE | 2021-07-10 11:34 | PCM.PROGNOTE ---
Subjective Subjective Jay was seen on team rounds today. His and he was present in the room and stayed for family education after team meeting. Afebrile VSS-blood pressure is controlled. Heart rate is within normal limits. Maintaining appropriate oxygen saturation on RA Oral intake is poor. He has not been eating because he does not like the hospital food. He is lost approximately 10 pounds since admission to the acute hospital. the ssis etl developer reports that he is not interested in talking about his nutrition or diabetes and he declined education. He was following a keto diet prior to the stroke.......I explained to him that Keto is a high fat diet and not desirable in pts with diabetes and stroke hx. Discussed with nursing - no problems that need addressed. Nursing tells me that he is transferring better and only needs 1 person to transfer now. Reportedly he is sleeping well. Reviewed the PT/OT/ST notes. He only requires minimal assistance with upper body and lower body dressing now. He is also min assist for toilet transfer and toileting. Still having difficulty with impulsivity and poor safety awareness. Still with Left side neglect and still having difficulty following instructions. Medication list reviewed. No adverse reactions with sertraline 50 mg daily. The blood sugar record was reviewed. The blood sugars have ranged from 83 - 106 since 07/05/21 with no hypoglycemia. He has no complaints today other than fatigue, BL hip pain and that the food is terrible. We talked about his poor intake and he says he is not eating because he does not like the food BUT, he does not eat the food that his family brings in either. He has cheese Nips, pork rinds, almonds and pretzels in his room for snacks. The ssis etl developer came up to educate Jay and his in a low fat diet but, unfortunately his left and Jay was indifferent and did not want any education without his present. Objective Data Objective Data Vital Signs: Vital Signs Temp Pulse Resp BP Pulse Ox 98.0 F 62 16 130/70 H 97 07/10/21 07:42 07/10/21 07:42 07/10/21 07:42 07/10/21 07:42 07/10/21 07:42 Oxygen Delivery Method Room Air Weight: 202 lb 12.8 oz Body Mass Index (BMI) 30.4 Intake & Output: Intake and Output for Last 24 Hours 07/08/21 07/09/21 07/10/21 23:59 23:59 23:59 Intake Total 120 / 120 440 / 440 Balance 120 / 120 440 / 440 Lab / Micro Data Result Diagrams: 06/28/21 05:34 07/05/21 05:30 Labs: Laboratory Results - last 24 hr 07/09/21 16:55: POC Glucose 88 07/10/21 05:51: POC Glucose 85 Physical Exam Const alert, oriented x3 and no apparent distress Constitutional Narrative: uncooperative at times. Argues with the therapists. General Appearance: uncooperative Eyes PERRL, EOMs intact bilaterally, conjunctivae normal and no scleral icterus Resp clear to auscultation bilaterally Effort and Inspection: able to speak in complete sentences Cardio regular rate, regular rhythm and no gallops GI normal to inspection, nondistended, normoactive bowel sounds, soft to palpation and non-tender Extremity no calf tenderness and no pedal edema Skin no wounds General Skin Exam: no breakdown Rashes: no rashes Psych Psych Narrative: Makes good eye contact unless you are saying something he does not want to hear and then he looks away. He is argumentative and insists he can walk to the BR by himself with the HW. He continues to underestimate his degree of disability and thinks he can do more than he can and this results in poor safety awareness. He is impulsive and does things too fast and then has poor technique. Assessment & Plan Assessment/Plan (1) Physical debility: (2) Hemorrhagic stroke: PLAN: Continue PT/OT/ST. His will stay for family education today to learn how best to assist Jay when he returns home. Will need home health care for PT/OT/ST/SN at discharge Will more likely than not need to move his bedroom to the first floor since he is having difficulty with stair climbing. Continue enoxaparin 40 mg subcu daily for DVT prophylaxis. Will follow up with neurology going forward and will let them decide when/if he will be started on ASA or plavix. He is making good progress and is motivated to get better. (3) Facial droop: (4) Left hemiparesis: (5) Left-sided neglect: PLAN: He continues to have Left side neglect and also impulsivity and poor safety awareness. He also argues with the therapists and thinks he can do more than he can. He is able to recall strategies to deal with the Left side neglect but, he does not utilize the strategies without prompting. (6) Cognitive dysfunction due to acute cerebrovascular accident (CVA): PLAN: Continue speech therapy. He was able to answer numerical processing questions and complete executive functioning tasks with over 90% accuracy today. 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 twice daily. I stressed to him that maintaining good protein/calorie intake is essential if he is going to get stronger. He fatigues very easily at admission was deconditioned due to lack of regular exercise prior to the stroke. I stressed the need for daily exercise following discharge from rehab to maintain his current level of function. (11) Dyslipidemia: PLAN: The ssis etl developer is going to come and talk to Jay and his after therapy today. Once again we stress that Keto is a high fat diet and is not recommend in a pt with dyslipidemia, DM II, HTN and recent stroke. Charges/Coding Visit Charges Inpatient E&M: 16889 Subs Hosp L2
[2021-07-10] MEDS: Arthritis Pain Compound 60 CLICK TUBE TOPICAL ×2 (14:33→20:20)
--- NOTE | 2021-07-10 14:34 | CASEMGMT ---
Social Work IDT met with patient and for Team meeting. Discussed patient's progress in PT/OT/ST and nursing. Pt making progress. All disciplines continue to note pt remains impulsive, having poor safety awareness, left neglect. Explained [employer] insurance with NRD 07/11 and continued stay is not guaranteed. Inquired to the plan for DC and realistically how pt and kids will be cared for at home. understands - states pt's brother will be coming to the house to stay and assist pt. Pt and brother are both comfortable with ADL assistance. and pt acknowledge there will be some challenges, but will work through them together. She will be taking time off work. [facility] paperwork for pt and provided to . Encouraged to participate in therapy training. agrees and can stay after Team to participate in therapy training and complete training tomorrow at 2 pm. Regardless, plan is pt to DC home with family assistance once insurance issues DC date. IDT would like pt to gain as much strength and improvement in RU from therapy as insurance allows. and pt did agree for SW to complete advanced directives without present. SW to complete. SW to order HHC first then transition outpatient therapy, and any DME needed. Will ReTeam next week if pt is still admitted. SW to continue to follow for discharge planning. ANTONIO Nieves
--- NOTE | 2021-07-10 16:15 | CASEMGMT ---
Social Work Completed advanced directives with pt. Pt named as primary and brother as secondary. Originals and copies provided to pt. Copies placed on chart. Erica Jenkins MSW MUSIC WRITER
[2021-07-10 16:50] LABS: Bedside Glucose 96 mg/dL (74-106)
[2021-07-10 17:00] VITALS: BMI 30.4
[2021-07-10] MEDS: Atorvastatin Calcium 40 MG Tablet PO (20:21)
[2021-07-10 20:27] VITALS: BP 126/82; PULSE 72; RESP 17; TEMP 36.2; O2SAT 95
[2021-07-10 20:28] VITALS: BMI 30.4
[2021-07-10 22:00] VITALS: PULSE 73; RESP 16; O2SAT 96
[2021-07-11 07:16] LABS: Bedside Glucose 80 mg/dL (74-106)
[2021-07-11 07:35] VITALS: BP 119/80; PULSE 56; RESP 17; TEMP 36.1; O2SAT 98
[2021-07-11] MEDS: Arthritis Pain Compound 60 CLICK TUBE TOPICAL ×3 (08:40→21:48)
[2021-07-11] MEDS: Lisinopril 10 MG Tablet PO ×2 (08:42→21:48)
[2021-07-11] MEDS: busPIRone 5 MG Tablet PO ×3 (08:42→21:48)
[2021-07-11] MEDS: metFORMIN HCl 500 MG Tablet PO ×2 (08:42→16:07)
[2021-07-11] MEDS: Sertraline 100 MG Tablet PO (08:43)
[2021-07-11] MEDS: Enoxaparin 40 MG/0.4 ML Syringe SC (08:43)
[2021-07-11 15:00] VITALS: BMI 30.4
[2021-07-11 16:30] LABS: Bedside Glucose 84 mg/dL (74-106)
[2021-07-11] MEDS: Atorvastatin Calcium 40 MG Tablet PO (21:48)
[2021-07-11] MEDS: Acetaminophen 325 MG Tablet 650 MG PO (21:49)
[2021-07-11 22:00] VITALS: BP 104/46; PULSE 69; RESP 14; TEMP 36.3; O2SAT 96
[2021-07-11 23:51] VITALS: BMI 30.4
[2021-07-12] MEDS: Acetaminophen 325 MG Tablet 650 MG PO ×2 (06:04→20:10)
[2021-07-12] MEDS: Arthritis Pain Compound 60 CLICK TUBE TOPICAL ×2 (06:23→14:13)
[2021-07-12 07:20] LABS: Bedside Glucose 116 mg/dL (74-106)
[2021-07-12 07:49] VITALS: BP 108/74; PULSE 63; RESP 18; TEMP 36.5; O2SAT 93
[2021-07-12] MEDS: metFORMIN HCl 500 MG Tablet PO ×2 (08:04→16:54)
[2021-07-12] MEDS: busPIRone 5 MG Tablet PO ×3 (08:04→20:11)
[2021-07-12] MEDS: Lisinopril 10 MG Tablet PO ×2 (08:04→20:11)
[2021-07-12] MEDS: Sertraline 100 MG Tablet PO (08:04)
[2021-07-12] MEDS: Enoxaparin 40 MG/0.4 ML Syringe SC (08:05)
--- NOTE | 2021-07-12 09:10 | PCM.PROGNOTE ---
Subjective Subjective Afebrile VSS Maintaining appropriate oxygen saturation on RA Oral intake is improved. Blood sugars are well controlled with no hypoglycemia. Last bowel movement was 07/10/2021 Discussed with nursing - no problems that need addressed Reviewed the PT/OT/ST notes he is contact-guard assist for sit to stand and min assist for stand and pivot. He continues to use the hemiwalker. He is not positioning the hemiwalker correctly to safely perform stand and pivot and sometimes not using it out at all. Yesterday he ambulated 50 feet with a hemiwalker at contact-guard/min assist. Occasional retro loss of balance but was able to self-correct. Yesterday he completed a flight of steps with a right handrail at min/mod assist. Still with poor safety awareness and he fatigues easily. Still with L side neglect. Medication list reviewed. Fredi was here in rehab again yesterday for family training. She feels that she will be able to assist Jay at home and when she is away the brother will be in town to help Jay. Objective Data Objective Data Vital Signs: Vital Signs Temp Pulse Resp BP Pulse Ox 97.7 F L 63 18 108/74 93 07/12/21 07:49 07/12/21 07:49 07/12/21 07:49 07/12/21 07:49 07/12/21 07:49 Oxygen Delivery Method Room Air Weight: 199 lb 1.239 oz Body Mass Index (BMI) 30.4 Intake & Output: Intake and Output for Last 24 Hours 07/10/21 07/11/21 07/12/21 23:59 23:59 23:59 Intake Total 1360 / 1360 1140 / 1140 Balance 1360 / 1360 1140 / 1140 Lab / Micro Data Result Diagrams: 07/15/21 06:51 07/15/21 06:51 Labs: Laboratory Results - last 24 hr 07/11/21 16:11: POC Glucose 84 07/12/21 06:32: POC Glucose 116 H Physical Exam Const alert, oriented x3 and no apparent distress Eyes PERRL, EOMs intact bilaterally, conjunctivae normal and no scleral icterus Resp clear to auscultation bilaterally Cardio regular rate and regular rhythm Cardio Narrative: no ectopy GI normal to inspection, nondistended, normoactive bowel sounds, soft to palpation and non-tender Extremity Extremity Narrative: minimal edema of the Left ankle......down considerably from admission Skin General Skin Exam: no breakdown Rashes: no rashes Assessment & Plan Assessment/Plan (1) Hemorrhagic stroke: (2) Physical debility: (3) Cognitive dysfunction due to acute cerebrovascular accident (CVA): (4) Left-sided neglect: (5) Left hemiparesis: (6) Facial droop: (7) Diabetes mellitus, type 2: QUALIFIERS: 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 The plan is for Jay to go home at [place]. His younger brother will be coming to assist Jay at home. Family understands that for the first 2 weeks he will need 24/ supervision. 2. BS's are under excellent control with Glucophage 500 mg BID and no hypoglycemia. Will continue the current dose. 3. BP is within goal of < 130/80. Continue Lisinopril 10 mg BID 4. Has not had an ECHO - this can be ordered by Dr. harris as an OP post discharge 5. Follow up with Dr. Wylie form neurology - Jay requested to follow up in [place] because he does not want to have to travel to [place]. 6. Continue PT/OT/ST and family training. Charges/Coding Visit Charges Inpatient E&M: 99953 Subs Hosp L2
[2021-07-12 13:25] VITALS: BMI 30.4
--- NOTE | 2021-07-12 16:08 | CASEMGMT ---
Social Work Pt requested to see this worker. SW presented to room. Updated pt on insurance NRD 07/17. Pt disappointed as he is anxious to get home. SW discussed continuing with extensive rehab is the best chance for optimal outcome. Reminded pt this is only temporary and pt will be going home. Pt expressed missing his youngest son. Offered FaceTime. Pt stated they did do that, but son is scared of pt because he sounds different. Empathized with pt. Pt also expressed anxiousness to get back to work, stating he has been receiving emails and texts from coworkers. Pt shared some of those conversations, which mostly consisted of coworkers saying there are rumors going around the workplace of what happened to pt; suspecting arrest, admitting to rehab for gambling or alcoholism. Pt expressed frustration with workplace rumors and the need to explain to coworkers the truth of his absence. SW validated feelings, empathized with pt, and provided supportive listening. SW offered to assist with creating a letterhead document signed by this worker and/physician written with patient of simplified explanation for pt's absence. Pt appreciative, likes the idea, but will talk to and notify this worker if they choose to proceed. Pt very 'antsy' to get back to work and he expressed some other frustrations. SW provided emotional and verbal support. Encouraged to find distraction from work with other activities. Pt declined offer of in-room activities. Encouraged to focus on current recovery and what he can control, as he cannot control what is going on at work. Discussed the reality of stroke recovery and unknown timeframe if/when he will be able to return from work. Suggested to 'cross that bridge when he comes to it'; to drown out the 'noise' of workplace rumors - the important people know the truth, and pt needs to focus on recovery. Validated frustrations and pt's work ethic. Pt appreciative of conversation with this worker and will notify of any additional support needed. SW to continue to follow. ANTONIO Nieves
[2021-07-12 17:26] LABS: Bedside Glucose 117 mg/dL (74-106)
[2021-07-12 19:48] VITALS: BP 120/66; PULSE 75; RESP 17; TEMP 36.6; O2SAT 96
[2021-07-12] MEDS: Atorvastatin Calcium 40 MG Tablet PO (20:11)
[2021-07-13] MEDS: Arthritis Pain Compound 60 CLICK TUBE TOPICAL ×2 (06:38→14:21)
[2021-07-13 07:21] LABS: Bedside Glucose 90 mg/dL (74-106)
[2021-07-13 07:40] VITALS: BP 119/63; PULSE 53; RESP 16; TEMP 36.1
[2021-07-13] MEDS: metFORMIN HCl 500 MG Tablet PO ×2 (08:06→16:59)
[2021-07-13] MEDS: busPIRone 5 MG Tablet PO ×3 (08:06→20:04)
[2021-07-13] MEDS: Enoxaparin 40 MG/0.4 ML Syringe SC (08:07)
[2021-07-13] MEDS: Lisinopril 10 MG Tablet PO ×2 (09:43→20:04)
[2021-07-13] MEDS: Sertraline 100 MG Tablet PO (09:43)
--- NOTE | 2021-07-13 13:37 | CASEMGMT ---
Social Work Followed up with pt after conversation yesterday. Pt expressed his disappointment with not getting discharged and knowing the possibility of not returning to work/soon. Validated feelings/empathized with pt. Discussed setting DC date to have something to look forward to and not wait for insurance to decide. Pt agreeable. Inquired about timeline needed for to put notice in at work and brother to fly in from [place]. Pt stated brother prefers to fly on Tuesdays. Suggested DC 07/19. Pt very happy with that date and getting the extra days of therapy. Discussed HHC vs OP. Pt prefers HHC first then transition to [facility]. Provided skilled HHC list with quality and resource data. Pt prefers [facility]HC. Referral made for PT/OT/ST/SN/SW. SW to provide ongoing support with lifestyle changes from stroke. Pt states bought hemiwalker and bed rail, but requesting transport w/c and 3-in-1 commode. Referral made to [facility]. to transport home. Pt expressed appreciation for support from this worker. Updated IDT. IDT agreeable. Plan: [facility]19[facility], transport w/c, BSC Erica Jenkins, INSTRUCTOR [employer] VEHICLE REPAIRER
[2021-07-13] MEDS: Acetaminophen 325 MG Tablet 650 MG PO (14:24)
[2021-07-13 15:29] VITALS: BMI 30.4
[2021-07-13 16:50] LABS: Bedside Glucose 80 mg/dL (74-106)
[2021-07-13 19:57] VITALS: BP 117/77; PULSE 73; RESP 18; TEMP 35.9; O2SAT 97
[2021-07-13] MEDS: Atorvastatin Calcium 40 MG Tablet PO (20:04)
[2021-07-14 01:19] VITALS: BMI 30.4
--- NOTE | 2021-07-14 04:37 | NURSING ---
REVIEWED AND AGREE WITH GUEST RELATIONS EXECUTIVE'S FUNCTIONAL ASSESSMENT AND HANDOFF CHARTING.
[2021-07-14 06:00] LABS: Bedside Glucose 82 mg/dL (74-106)
[2021-07-14] MEDS: metFORMIN HCl 500 MG Tablet PO ×2 (07:43→16:49)
[2021-07-14] MEDS: Enoxaparin 40 MG/0.4 ML Syringe SC (07:43)
[2021-07-14] MEDS: busPIRone 5 MG Tablet PO ×3 (07:43→20:43)
[2021-07-14] MEDS: Acetaminophen 325 MG Tablet 650 MG PO (08:42)
[2021-07-14] MEDS: Lisinopril 10 MG Tablet PO ×2 (09:22→21:37)
[2021-07-14] MEDS: Sertraline 100 MG Tablet PO (09:22)
[2021-07-14 10:00] VITALS: BP 107/69; PULSE 57; RESP 18; TEMP 35.9; O2SAT 96
--- NOTE | 2021-07-14 12:36 | PCM.PN.BLA ---
Progress Note Afebrile VSS blood pressure is well controlled. Maintaining appropriate oxygen saturation on RA Fluid intake is adequate. Family is bringing food from home. Has lost 13 pounds since admission to rehab.......I do not feel this is due to decreased appetite......I think he is purposefully not eating to lose weight.....it is likely a control issue. Discussed with nursing - no problems that need addressed Reviewed the PT/OT/ST notes Medication list reviewed. Blood sugar record was reviewed and the blood sugars are excellent with no hypoglycemia. The SW talked with him yesterday about his desire to go home today and they agreed to set a DC date of 07/19/21. I recommended to him that he stay as long as insurance will allow him to maximize his potential for minimal disability going forward. Jay denies chest pain, shortness of breath, palpitations, lightheadedness, calf pain, dysuria, nausea/vomiting/abdominal pain. He tells me that he is sleeping well. He is tolerating 100 mg of sertraline every morning with no adverse side effects. Physical Exam Const alert, oriented x3 and no apparent distress Constitutional Narrative: Sitting in the recliner watching TV when I entered the room. He did turn the TV off this time to talk with me. General Appearance: well kempt and well developed Eyes conjunctivae normal and no scleral icterus Eyes Narrative: Still with Left inferior quadrantanopia and some left side neglect. Resp normal respiratory effort, normal air movement and clear to auscultation bilaterally Effort and Inspection: able to speak in complete sentences Cardio regular rate, regular rhythm, S1 normal heart sound, S2 normal heart sound, no murmurs and no gallops GI normal to inspection, nondistended, normoactive bowel sounds, soft to palpation and non-tender Extremity no calf tenderness and no pedal edema Skin General Skin Exam: no breakdown Rashes: no rashes Neuro Neuro Narrative: minimal slur in his speech and is is intelligible with good voice projection. Psych Appearance: well kempt Activity / Motor Behavior: appropriate eye contact; Negative for psychomotor agitation or psychomotor slowing Assessment & Plan Assessment/Plan (1) Physical debility: (2) Hemorrhagic stroke: PLAN: He is doing better with all therapy modalities, including cognition. Plan is to DC him home on the . His brother is flying in on the and will be there to assist Jay. [facility] Will continue PT/OT/ST post DC as well as SN and SW. (3) Left homonymous inferior quadrantanopia: (4) Anxiety: PLAN: Better controlled. Will decrease the Buspar to BID and home to transition off prior to DC. SW with C will help to transition into life style changes needed to prevent other strokes going forward. I recommended he consider following up with psychotherapy post DC to learn how to control his anxiety and how to deal with chronic disability and accept that he may not get back to his previous baseline. (5) Diabetes mellitus, type 2: QUALIFIERS: Diabetes mellitus shelter insulin use: without shelter use Diabetes mellitus complication status: without complication Qualified Code(s): E11.9 - Type 2 diabetes mellitus without complications PLAN: Very well controlled. IF the BS's remain this well controlled after he goes home would consider decreasing the Glucophage to once a day. No hypoglycemia (6) Hyponatremia: PLAN: Mild, stable, likely due to cerebral salt wasting due to the ICH. Recheck a BMP in the AM. (7) EtOH dependence: QUALIFIERS: Substance use status: uncomplicated Qualified Code(s): F10.20 - Alcohol dependence, uncomplicated PLAN: I suspect this is going to be difficult to conquer. His BP is well controlled with just 10 mg of Lisinopril BID. I suspect ETOH abuse contributed to the CVA and he is hiding how much he drinks from his . She only sees him having 2 - 3 mixed drinks at night when he is home and this is every night. Still not forthcoming about ETOH use when he is not at home. (8) Essential (primary) hypertension: PLAN: Controlled. Visit Charges Inpatient E&M: 60910 Subs Hosp L2
[2021-07-14] MEDS: Arthritis Pain Compound 60 CLICK TUBE TOPICAL ×2 (14:04→20:43)
[2021-07-14 16:06] LABS: Bedside Glucose 107 mg/dL (74-106)
[2021-07-14 16:33] VITALS: BMI 30.4
[2021-07-14 19:58] VITALS: BP 112/64; PULSE 70; RESP 15; TEMP 36.3; O2SAT 96
[2021-07-14] MEDS: Atorvastatin Calcium 40 MG Tablet PO (20:42)
[2021-07-14 22:00] VITALS: PULSE 76; O2SAT 98
[2021-07-14 22:02] VITALS: BMI 30.4
[2021-07-15] MEDS: Arthritis Pain Compound 60 CLICK TUBE TOPICAL (05:33)
[2021-07-15 06:46] LABS: Bedside Glucose 96 mg/dL (74-106)
[2021-07-15 07:06] LABS: Hematocrit 42.1 % (40-54); Hemoglobin 14.6 g/dL (13.0-16.5)
[2021-07-15 07:31] LABS: Anion Gap 5 (5-15); BUN 8 mg/dL (7-18); BUN/Creat Ratio 9.8 RATIO (10-20); Calcium,Total 9.3 mg/dL (8.5-10.1); Chloride 105 mmol/L (98-107); Creatinine, Serum 0.82 mg/dL (0.70-1.30); EST Glomerular Filtration Rate 107 mL/min (>60); Est Glom Filt Rate - Afr Amer 129 mL/min (>60); Estimated Creatinine Clearance 113.75 ml/min; Glucose 88 mg/dL (74-106); Magnesium 1.9 mg/dL (1.6-2.6); Potassium 3.8 mmol/L (3.5-5.1); Sodium Level 137 mmol/L (136-145)
[2021-07-15 08:04] VITALS: BP 126/64; PULSE 58; RESP 16; TEMP 36.2; O2SAT 97
[2021-07-15] MEDS: Enoxaparin 40 MG/0.4 ML Syringe SC (08:41)
[2021-07-15] MEDS: metFORMIN HCl 500 MG Tablet PO (08:44)
[2021-07-15] MEDS: busPIRone 5 MG Tablet PO ×2 (08:44→22:16)
[2021-07-15] MEDS: Sertraline 100 MG Tablet PO (08:44)
[2021-07-15] MEDS: Lisinopril 10 MG Tablet PO ×2 (08:44→22:55)
[2021-07-15 14:41] VITALS: BMI 30.4
[2021-07-15 22:00] VITALS: BP 120/81; PULSE 66; RESP 16; TEMP 35.7; O2SAT 96
[2021-07-15] MEDS: Atorvastatin Calcium 40 MG Tablet PO (22:16)
[2021-07-16 01:32] VITALS: BMI 30.4
[2021-07-16 06:45] LABS: Bedside Glucose 100 mg/dL (74-106)
[2021-07-16] MEDS: metFORMIN HCl 500 MG Tablet PO ×2 (09:01→16:44)
[2021-07-16] MEDS: Enoxaparin 40 MG/0.4 ML Syringe SC (09:01)
[2021-07-16] MEDS: Lisinopril 10 MG Tablet PO ×2 (09:01→22:00)
[2021-07-16] MEDS: busPIRone 5 MG Tablet PO ×3 (09:01→22:00)
[2021-07-16] MEDS: Sertraline 100 MG Tablet PO (10:47)
[2021-07-16 12:43] VITALS: BP 105/65; PULSE 64; RESP 18; TEMP 36.1; O2SAT 97
[2021-07-16] MEDS: Arthritis Pain Compound 60 CLICK TUBE TOPICAL (14:10)
[2021-07-16 14:48] VITALS: BMI 30.4
[2021-07-16 17:05] LABS: Bedside Glucose 107 mg/dL (74-106)
[2021-07-16 19:00] VITALS: BP 128/74; PULSE 76; RESP 17; TEMP 36.7; O2SAT 96
[2021-07-16] MEDS: Atorvastatin Calcium 40 MG Tablet PO (22:00)
[2021-07-17 01:30] VITALS: BMI 30.4
[2021-07-17 07:00] LABS: Bedside Glucose 92 mg/dL (74-106)
[2021-07-17 07:40] VITALS: BP 127/79; PULSE 66; RESP 18; TEMP 36.6; O2SAT 98
[2021-07-17] MEDS: busPIRone 5 MG Tablet PO ×3 (07:53→20:25)
[2021-07-17] MEDS: Enoxaparin 40 MG/0.4 ML Syringe SC (07:53)
[2021-07-17] MEDS: metFORMIN HCl 500 MG Tablet PO ×2 (07:53→16:50)
--- NOTE | 2021-07-17 08:55 | CASEMGMT ---
Addendum entered by Erica Jenkins 07/18/21 15:44: [facility] [place] contacted with OOP cost of DME. BSC = $66, no insurance coverage, w/c $4.35/mo copay. Left message with with pricing. returned call and they will pay/accept w/c, but will purchase BSC on their own. Updated [facility] [place]. w/c to be delivered to home 07/19. Addendum entered by Erica Jenkins 07/17/21 16:37: Contacted [facility] [place] to verify receipt of referral. Confirmed - [facility] [place] is verify insurance benefits. If there any issues, they will contact this worker. Updated pt. Addendum entered by Erica Jenkins 07/17/21 14:57: [employer] left voicemail with SW stating they are not in network with insurance but would fax to another DME company. [facility]ed [facility] - they are in network. Returned call to [facility] with [facility] fax number to transfer referral to [facility]. Updated pt. Original Note: Social Work Received call from [facility] [employer] that they are unable to get the size transport w/c for several months, but does have BSC. However, offered to hold on that order in case it is more convenient to get both items from another company. Contacted Yoana at [employer] to inquire - they have both items in stock - sent script. Contact [facility] [employer] to cancel order. SW to update pt at Team meeting today. ANTONIO Nieves
--- NOTE | 2021-07-17 10:32 | PN_ITS ---
Subjective Subjective Jay was seen on TEAM rounds today. His Fredi participated by phone. Afebrile VSS Maintaining appropriate oxygen saturation on RA Oral intake is Discussed with nursing - no problems that need addressed Reviewed the PT/OT/ST notes Medication list reviewed. The blood sugar record was reviewed. Blood sugars are under excellent control with no hypoglycemia. All labs from 07/15/2021 was reviewed. Hemoglobin is stable. Sodium is now within normal limits. Potassium is 3.8 and the magnesium is 1.9. BUN and creatinine are normal. Jay has no complaints today. He is sitting in the recliner at the bedside and looks comfortable. He is more cooperative and less argumentative than in preceding days. He denies chest pain, shortness of breath, palpitations, lightheadedness, dysuria, constipation/diarrhea/nausea/vomiting, cough, sore throat. Did better with steps today when the L foot was wrapped into dorsiflexion.......it was less exertion for him and he did not get so fatigued. cognitively he has improved significantly. Objective Data Objective Data Vital Signs: Vital Signs Temp Pulse Resp BP Pulse Ox 97.9 F 66 18 127/79 H 98 07/17/21 07:40 07/17/21 07:40 07/17/21 07:40 07/17/21 07:40 07/17/21 07:40 Oxygen Delivery Method Room Air Weight: 199 lb 1.239 oz Body Mass Index (BMI) 30.4 Intake & Output: Intake and Output for Last 24 Hours 07/15/21 07/16/21 07/17/21 23:59 23:59 23:59 Intake Total 360 / 360 Balance 360 / 360 Lab / Micro Data Result Diagrams: 07/15/21 06:51 07/15/21 06:51 Labs: Laboratory Results - last 24 hr 07/16/21 16:47: POC Glucose 107 H 07/17/21 06:50: POC Glucose 92 Physical Exam Const alert, oriented x3, no apparent distress and average body habitus General Appearance: cooperative and well kempt Eyes PERRL, EOMs intact bilaterally, conjunctivae normal and no scleral icterus Eyes Narrative: Left side neglect is better but, still not completely gone. General Eye: normal appearance of both eyes; Negative for exophthalmos Resp normal respiratory effort, normal air movement, no use of accessory muscles and clear to auscultation bilaterally Effort and Inspection: able to speak in complete sentences Cardio regular rate, regular rhythm, S1 normal heart sound, S2 normal heart sound, no murmurs and no gallops Cardio Narrative: no ectopy GI normal to inspection, nondistended, normoactive bowel sounds and no masses GI Narrative: no guarding with palpation Extremity no calf tenderness and no pedal edema Skin General Skin Exam: no breakdown Rashes: no rashes Neuro oriented x3 Neuro Narrative: still with a mild facial droop. Less impulsive and able to focus better on his technique rather than just rushing through activities. Has better safety awareness. Speech is crisp and intelligible and he has good vocal quality and projection. Sensorium / Orientation: alert Psych Psych Narrative: Joking with the staff. More appropriate and much less argum entative. Not emotionally labile. Attitude: calm and No withdrawn Activity / Motor Behavior: appropriate eye contact Mood & Affect: Negative for labile affect Assessment & Plan Assessment/Plan (1) Physical debility: (2) Hemorrhagic stroke: PLAN: Continues to make progress in therapy. Plan is to discharge on 07/19/2021 with home health care for the first few weeks and then transitioning to [facility]. His brother will be in town Saturday night and we will discharge Jay on Saturday. 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 (6) Left-sided neglect: PLAN: Doing much better with this. Realizes now that he needs to adjust for this and he is much more deliberate with activity and using better william hnique. Less impulsive and better safety awareness. (7) Anxiety: PLAN: This is better with Sertraline. I suspect anxiety is a chronic problem for him and I advised him to continue the Sertraline for at least 6 months prior to even considering tapering. I warned him it can not be abruptly stopped since he may have some withdrawal sx. He is sleeping well, he is calmer and he is cooperative and less argumentative. (8) Essential (primary) hypertension: PLAN: Well controlled. Continue Lisinopril at DC (9) Diabetes mellitus, type 2: QUALIFIERS: Diabetes mellitus group home insulin use: without group home use Diabetes mellitus complication status: without complication Qualified Code(s): E11.9 - Type 2 diabetes mellitus without complications PLAN: WEll controlled with no hypoglycemia. May be able to get away with 500 mg of Glucophage with supper daily but, I suspect his oral intake is going to increase once he goes home and since he is not having any hypoglycemia will continue the Glucophage BID. Charges/Coding Visit Charges Inpatient E&M: 36646 Subs Hosp L2
[2021-07-17] MEDS: Sertraline 100 MG Tablet PO (10:52)
[2021-07-17] MEDS: Lisinopril 10 MG Tablet PO ×2 (10:52→20:25)
[2021-07-17] MEDS: Arthritis Pain Compound 60 CLICK TUBE TOPICAL ×2 (14:34→20:23)
--- NOTE | 2021-07-17 15:01 | CASEMGMT ---
Social Work IDT met with patient and via conference call for Team meeting. Discussed patient's progress in PT/OT/ST and nursing. Pt scheduled to DC 07/18. No changes. Pt expressed appreciation for assistance, support and compassion given by this worker. Erica Jenkins, SUPERVISOR [employer] OWNER
[2021-07-17 16:45] LABS: Bedside Glucose 81 mg/dL (74-106)
[2021-07-17 17:00] VITALS: BMI 30.4
[2021-07-17 19:07] VITALS: BP 103/71; PULSE 68; RESP 16; TEMP 36.6; O2SAT 98
[2021-07-17] MEDS: Atorvastatin Calcium 40 MG Tablet PO (20:24)
[2021-07-17 20:34] VITALS: BMI 30.4
[2021-07-17 22:00] VITALS: PULSE 63; RESP 16; O2SAT 97
[2021-07-18 06:51] LABS: Bedside Glucose 85 mg/dL (74-106)
[2021-07-18 07:34] VITALS: BP 149/78; PULSE 85; RESP 16; TEMP 36.3; O2SAT 94
[2021-07-18] MEDS: Enoxaparin 40 MG/0.4 ML Syringe SC (09:08)
[2021-07-18] MEDS: Sertraline 100 MG Tablet PO (09:09)
[2021-07-18] MEDS: busPIRone 5 MG Tablet PO ×2 (09:09→20:20)
[2021-07-18] MEDS: Lisinopril 10 MG Tablet PO ×2 (09:09→20:17)
[2021-07-18] MEDS: metFORMIN HCl 500 MG Tablet PO ×2 (09:09→16:15)
--- NOTE | 2021-07-18 10:33 | PCM.DC ---
Discharge Instructions Diet Discharge Diet: 1800 Calorie Control Diet and - (Low fat and low salt. ) Activity Discharge Activity: May Not Drive, May Shower and Use Walker (Nestor walker) May resume sexual activity in: No Restrictions Weight Bearing Status: Full weight bearing Keep extremity elevated above heart level: Left Arm and Left Leg Additional Activity Instructions:: this helps to decrease swelling Dressing / Incision Call your doctor if you observe: Fever of 101 or Higher, Shortness of breath, Dizziness, Fainting spells, Chest pain, Increased palpitations (irregular heartbeat), Calf discomfort and - (STROKE WARNING SIGNS:1. Sudden numbness or weakness of the face, arm or leg especially if on one side of the body only2. Sudden confusion, trouble speaking or understanding speech3. Sudden trouble seeing in 1 eye or both eyes4. Sudden trouble walking, dizziness, loss of balance or incoordination) Follow Up Care Please Follow Up With: Viraj Arias MD Test Results: Test results from this visit will be discussed in further detail at your follow-up appointment, if applicable. Pending Tests Upon Discharge: none Discharge Plan Admission Admit Date/Time: 06/27/21 15:04 Primary Reason for Your Visit: post stroke debility Attending Provider: Monserrat Longoria Primary Care Provider: Viraj Arias Instructions Patient Instructions: Diabetes and Drinking Alcohol, Intimacy After Stroke, Eating Out When You Have Diabetes, Diabetes: Living Your Life, Discharge Instructions for Stroke, Healthy Lifestyle to Prevent ..., Diabetes: Meal Planning, Diabetes- Measuring Glucose at Home, Diabetes Wearing a Medical ID, ED Hypoglycemia Oral Diabetic ... Additional Instructions / Restrictions: 1. You have done remarkably well in therapy. You still need more therapy but, this can be done wither at home or as an outpatient. You may not recover all the strength on the left side that you had prior to the stroke but, keep working hard and you will improve. Your cognitive function has improved dramatically from when you first came to rehab. 2. I am giving you some information to read about strokes, how to prevent strokes, diabetes and anxiety. I believe the stroke was caused by a combination of anxiety due to stressful work situation, high blood pressure that was not being treated and excessive alcohol intake. Alcohol can increase BP but, it can also cause weakening in the wall or the artery (jace like a bubble on the side of you tire)......this can lead to bursting and then bleeding into the brain. I recommend you read the article I am giving you on diabetes and alcohol and that you adhere to no more than 2 drinks daily. Stress increases BP, sometimes dramatically. I think your stress/anxiety is better controlled now since you are on Sertraline and Buspar. I do not think you are going to need both medications going forward and I having given you a prescription to taper the Buspar off over the next 3 weeks. I recommend that you continue the Sertraline for AT LEAST 6 months to allow your body to adjust to every thing that has happened to you over the past month and until you learn to deal with the fact that you have diabetes and high blood pressure and these are chronic illnesses that need to be managed. You also may need to make peace with the possibility that you may have some long lasting deficits from the stroke. The best way to manage these issues is a combination of medication and psychotherapy. Psychotherapy can help you to accept your chronic illnesses and how to manage your stress so you do not have to take Sertraline or a medication like Sertraline the rest of your life. You are not crazy. Life is stressful and you have a young child, a new and a very stressful job......give it a chance.....it works better than medication alone. when you first came to rehab you were not only stressed you were angry and argumentative. this may have been due to the stroke + anxiety over your situation. You are a much nicer steven than you were at admission.......managing stress leads to a better quality of life. 3. Goals to prevent another stroke in the future. a. Keep your HGBA1C under 7. This needs to be checked every 3 months and you should always know your last HGBA1C. Your hemoglobin A1c at [facility] was 7.3%. Your blood sugars are under excellent control at the present time and in fact they are in the normal range. Glucophage is a medicine that is less likely to cause low blood sugars BUT, I have given you a handout on the symptoms of a low blood sugar and what to do if you have these symptoms. b. Your BP needs to be less than 130/80. BP can change from minute to minute and it definitely goes way up with stress. I suggest you purchase a BP cuff (the one that goes around your upper arm) and check your BP at different times during the day. Try checking it when you are feeling anxious or stressed to see what happens with the BP. c. The LDL (bad cholesterol) needs to be 70 or less. your LDL was 155 at [facility]. You were started on Lipitor to lower the cholesterol. you will need to have a lipid panel and a liver panel in the next few weeks and Dr. Arias will order this for you. Eating a low fat diet is important. Keto is a high fat diet. A Mediterranean diet is best for patients with high cholesterol. Since you are diabetic and have high cholesterol and history of a stroke you qualify to have diabetic education here at the hospital with the dieticians as an OP. It is hard to absorb all the nuances of diet in controlling diabetes and high cholesterol when you are in the hospital and you have so much information thrown at you. Dr. Arias can give you a referral for diet education if you think you would like to do this. d. You need to stay active and aim for 30 minutes of exercise a day. Make this a Prescription.......you need to do this to stay healthy and live a long life. Walking is great exercise....[place] [facility] [place] [facility] exercise. e. Lastly, Dr. Arias is your PCP and people with chronic medical illnesses need to follow up with their PCP regularly. Most people who are young think they are healthy and do not need to see a doctor unless they are sick. NOT TRUE. High blood pressure and diabetes are silent Killers. Most people do not feel ill from these conditions until they have had a stroke, a heart attack, kidney failure or loss of eye sight. Make sure to keep all appts with Dr. Arias. 4. I was going to give you a glucometer to check your blood sugars but, you have to stick your fingers to get blood to test and this becomes painful and tiresome. Dr. Arias can prescribe you a monitor that you do not have to poke your fingers to get a reading if he thinks it is necessary. Your blood sugars are excellent now and there is no hurry to get a meter. Your appt with Dr. Arias is next Saturday and you will be fine until then. 5. Education is a very important part of rehab. If you or Fredi have ANY questions after you leave rehab please do not hesitate to call me. CELL: [phone] Office: [phone] or [phone]. Discharge Orders/Prescriptions Prescriptions: New acetaminophen [Tylenol] 325 mg Tablet 650 mg PO Q6H PRN PRN (Reason: PAIN) Qty: 0 RF: 0 buspirone 5 mg Tablet 5 mg PO BID Qty: 35 RF: 0 sertraline 100 mg Tablet 100 mg PO DAILY Qty: 30 RF: 0 Continued atorvastatin 40 mg Tablet 40 mg PO QHS Qty: 30 RF: 0 metformin 500 mg Tablet 500 mg PO BID Qty: 60 RF: 0 lisinopril 10 mg Tablet 10 mg PO BID Qty: 60 RF: 0 Referrals / Follow Up: Viraj Arias MD [Primary Care Provider] - 07/24/21 11:00 am Gilberto Wylie MD [STAFF PHYSICIAN] - 09/25/21 9:00 am ( Neurology appointment ) Disposition Disposition (needs filled in before D/C Order can be placed): Home Health Service
[2021-07-18] MEDS: Arthritis Pain Compound 60 CLICK TUBE TOPICAL ×2 (13:58→20:20)
[2021-07-18 15:28] VITALS: BMI 30.4
--- NOTE | 2021-07-18 15:39 | CASEMGMT ---
Social Work Received information from insurance that issued LCD 07/17, DC 07/18 - insurance did not authorize for one day for pt to DC 07/19 as planned. Provided P2P option and information to Dr. Longoria, whom agreed to complete. Per , she left message with callback information on completing P2P. SW to continue to follow. Erica Jenkins, PICKLING T[employer] OPERATOR [employer] EQUIPMENT OPERATOR
[2021-07-18 16:51] LABS: Bedside Glucose 96 mg/dL (74-106)
[2021-07-18 19:17] VITALS: BP 130/67; PULSE 72; RESP 16; TEMP 36.1; O2SAT 96
[2021-07-18] MEDS: Atorvastatin Calcium 40 MG Tablet PO (20:18)
[2021-07-18 20:25] VITALS: BMI 30.4
[2021-07-18 22:00] VITALS: PULSE 66; RESP 16; O2SAT 98
[2021-07-19 07:06] LABS: Bedside Glucose 91 mg/dL (74-106)
[2021-07-19 07:57] VITALS: BP 109/70; PULSE 77; RESP 18; TEMP 36.6; O2SAT 97
[2021-07-19] MEDS: metFORMIN HCl 500 MG Tablet PO (08:20)
[2021-07-19] MEDS: Lisinopril 10 MG Tablet PO (08:20)
[2021-07-19] MEDS: Sertraline 100 MG Tablet PO (08:20)
[2021-07-19] MEDS: busPIRone 5 MG Tablet PO (08:20)
--- NOTE | 2021-07-19 11:50 | DS.PCM_ITS ---
Providers Date of Admission: 06/27/21 Date of Discharge: 07/19/21 Primary Care Physician: Dr. 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 (6) Dysarthria: Status: Acute Code(s): R47.1 - Dysarthria and anarthria (7) Cognitive dysfunction due to acute cerebrovascular accident (CVA): Status: Acute Code(s): I63.9 - Cerebral infarction, unspecified; R41.89 - Other symptoms and signs involving cognitive functions and awareness (8) Anxiety: Status: Suspected Code(s): F41.9 - Anxiety disorder, unspecified (9) Essential (primary) hypertension: Status: Acute Code(s): I10 - Essential (primary) hypertension (10) Diabetes mellitus, type 2: Status: Acute Code(s): E11.9 - Type 2 diabetes mellitus without complications Qualifiers: Diabetes mellitus complication status: without complication Diabetes mellitus intermediate insulin use: without intermediate use Qualified Code(s): E11.9 - Type 2 diabetes mellitus without complications (11) Hyponatremia: Status: Resolved Code(s): E87.1 - Hypo-osmolality and hyponatremia (12) EtOH dependence: Status: Suspected Code(s): F10.20 - Alcohol dependence, uncomplicated Qualifiers: Substance use status: uncomplicated Qualified Code(s): F10.20 - Alcohol dependence, uncomplicated (13) Overweight (BMI 25.0-29.9): Status: Resolved Code(s): E66.3 - Overweight (14) Facial droop: Status: Acute Code(s): R29.810 - Facial weakness (15) Left homonymous hemianopsia: Status: Resolved Code(s): H53.462 - Homonymous bilateral field defects, left side (16) Dyslipidemia: Status: Acute Code(s): E78.5 - Hyperlipidemia, unspecified Plan: 1. DC home with [facility]. His brother Malcolm came up from [place] to help Jay at home and Malcolm and Fredi have both undergone family training. 2. BS's and BP are well controlled. He will need a meter to measure his blood sugars at home and I am going to defer this to Dr. Arias as he might favor one over the other. Jay and Fredi have both been educated by the proposal specialist in a calorie controlled, carb consistent, low fat, low salt diet. He may benefit from follow up with the proposal specialist as an OP to monitor the changes he has made in his diet and for more education. 3. Anxiety is under much better control with Sertraline 100 mg daily. He is going to be tapered off Buspar over the next 3 weeks. 4. I recommended he abstain from ETOH for now but, if he does drink then no more than 2 drinks a day. 5. [place] paperwork completed for Jay and his Fredi. 6. Has a follow up appt with Dr. Arias on this coming Saturday and a appt with Dr. Wylie on 09/25/21 7. He should have a liver panel and a lipid panel checked in 2-3 weeks. The goal LDL is 70 or less. He is tolerating the Atorvastin with no adverse reactions. Medications at Discharge Home Medications acetaminophen [Tylenol] 650 mg PO Q6H PRN PRN #0 tab 07/18/21 atorvastatin 40 mg PO QHS #30 tab 07/18/21 buspirone 5 mg PO BID #35 tab 07/18/21 lisinopril 10 mg PO BID #60 tab 07/18/21 metformin 500 mg PO BID #60 tab 07/18/21 sertraline 100 mg PO DAILY #30 tab 07/18/21 Hospital Course Operations None Procedures None Summary of Care Provided Minutes Spent on Discharge: 40 Hospital Course: JAY YU, is a 46 YO M with obesity and daily ETOH use/abuse ( stated at [facility] that he has 2-3 mixed hard liquor drinks per day) who presented to the ED at [facility] on 06/19/2021 complaining of sudden onset of left arm weakness and difficulty speaking while driving. He was on the phone with his at the time of onset. He pulled over and was unable to open the car door with his left arm and then proceeded to drive himself to the ED. He felt off balance when walking into the emergency department. He was on no medications (including OTC meds) and denied any significant past medical history. He had not seen his PCP since 2019. Blood pressure at arrival to the emergency room was 193/115 with a pulse rate of 101. NIHSS at presentation was 7 and it increased to 12 while he was in the ED being worked up. Noncontrast CT brain showed a right basal ganglia parenchymal hematoma measuring 3.8 cm suggestive of a right lenticulostriate hypertensive hematoma. The EKG showed poor R wave progression and a nonspecific ST and T wave abnormality possibly due to lateral ischemia. H e was started on a nicardipine drip and the ED physician contacted neurosurgery at [facility] who accepted him for transfer. Significant lab at [facility] included an elevated hemoglobin at 16.6 with an MCV increased at 95.6. Platelet count was normal. PT and PTT were normal. Random glucose was 176. High-sensitivity troponin was normal at 6. No drug screen was done. The initial NIHSS upon arrival to [facility] was 13. CTA of the head and neck was negative. He was admitted to the neuro-intensive care unit. MRI obtained the following day showed a right basal ganglia parenchymal hematoma with surroundi ng edema, mass-effect and a leftward shift of 7 mm. The findings were unchanged from previous CAT scans. There was no evidence of underlying enhancement or significant surrounding restricted diffusion. No surgical intervention was required. On 06/26/2021 he had diagnostic angiography in order to rule out a structural vascular lesion. The angiogram was normal without evidence of arteriovenous malformation or aneurysm. HGBA1C was 7.3% at [facility]. Total cholesterol was 213. Triglycerides were 80 and the HDL was 42 with a total calculated LDL of 155. NIHSS at [facility] from [facility] was 8 ( facial palsy 2, left arm weakness 3, left leg weakness 1, numbness 1 and dysarthria 1). He did not have a TTE while at [facility]. Medications at discharge included 40 mg atorvastatin daily, enoxaparin 40 mg subcu daily for DVT prophylaxis, , lisinopril 10 mg twice daily and Glucophage 500 mg p.o. twice daily. Mr. Yu was transferred to the in acute rehab unit at [facility] on 06/27/21 for 3 hours of therapy daily to restore function/independence at or near his prior level of function. At presentation to rehab he had a L homonymous hemianopia and severe Left side neglect. His NIHSS at presentation was 12 and the MRS was 5 (severe disability). He was seen and evaluated by PT/OT/ST and a tx program was developed. Initially he was quite anxious and angry although he denied this. These things could be related to the area of the stroke however, he has a high stress job, a 16 month old child and 2 other children at home (he has 7 from a previous marriage) and a new of 2 years. He was argumentative with the therapists and would not follow instruction. He was started on Sertraline 50 mg and after 1 week this was increased to 100 mg. He has had no adverse side effects from this medication. He was still anxious, impulsive and resistant to suggestions made by the therapists. Buspar 5 mg TID was added to his drug regimen and after 2-3 days his anxiety abated and he was more cooperative. His interactions with the staff improved and he started to make good eye contact when I talked to him. He has been sleeping well at night. Appetite/intake was poor but, he was trying to lose weight and he chose not to eat. Jay had very poor exercise tolerance initially but over the course of the next 3 weeks his strength improved and so did his endurance. Initially he had left homonymous hemianopia but this improved and at discharge he had left homonymous quadrantanopia with neglect of the inferior quadrants. He learned to adjust to the neglect and he slowed down and concentrated on good form doing the exercises rather than doing them past with poor safety awareness. Sodium was a tad low for a time, more likely than not due to cerebral salt wasting, but prior to DC the sodium was normal at 137. H/H was stable. BP has been within goal on 10 mg of Lisinopril BID and the blood sugars are excellent with no hypoglycemia. Jay was discharged on 07/19/21. Prior to DC his Fredi and his brother Malcolm had family training to learn how to safely assist Jay. Prior to discharge he was able to ascend/descend 12 steps with 1 handrail at contact- guard assist with a step to pattern. He was able to complete 12 sit to stands in 30 seconds. He had ambulated up to 150 feet with a hemiwalker on various surfaces at contact-guard assist. He had ambulated up to 35 feet with a quad cane at contact-guard assist/min assist. Safety awareness improved significantly and he was much less impulsive. He was able to complete his grooming at supervision/set up. He was able to dress his upper body and his lower body with minimal assistance. He also needs only minimal assistance with toilet transfer and toileting. HHC with [facility] was arranged by the . He has an appt with Dr. Viraj Arias on 07/24/21 and he will follow up with Dr. Wylie from neurology on 09/25/21. FMLA papers were completed and I estimated his RTW date as October. This date can be edited by Dr. Arias depending on Jay's progress with therapy. I recommended to Jay that he stay on the Sertraline for at least 6 months before starting to taper off. Jay did not have an ECHO to complete the stroke W/U at [facility] and this will need to be ordered as an OP if Dr. Arias thinks it is necessary. Physical Exam Const alert, no apparent distress and average body habitus General Appearance: cooperative, comfortable, well kempt and well developed HEENT moist oral mucous membranes and oropharynx normal Head and Scalp: normal to inspection Eyes PERRL, EOMs intact bilaterally, conjunctivae normal and no scleral icterus General Eye: normal appearance of both eyes Resp normal respiratory effort, normal air movement, no retractions, no use of accessory muscles and clear to auscultation bilaterally Effort and Inspection: able to speak in complete sentences and symmetric chest movement Cardio regular rate, regular rhythm, S1 normal heart sound, S2 normal heart sound, no murmurs, no rub and no gallops GI normal to inspection, nondistended, normoactive bowel sounds, soft to palpation, non-tender and non-distended Extremity no calf tenderness and no pedal edema Extremity Narrative: The LLE is wrapped with an KAMLESH wrapped in dorsiflexion to keep Jay from dragging his toe and tripping. Skin skin turgor normal, no jaundice and no mottling General Skin Exam: no breakdown Rashes: no rashes Neuro Neuro Narrative: please see the NIHSS scoring Psych mental status grossly normal, thought process normal, cooperative, affect normal and activity/motor behavior normal Appearance: grossly normal, appropriate and well kempt Activity / Motor Behavior: appropriate eye contact Speech: normal speech Mood & Affect: euthymic mood Attention / Concentration: attention grossly intact Insight: other much improved over admission to rehab Judgement: other much better than when he was admitted to rehab Weight / BMI Weight Weight: 202 lb 9.677 oz Body Mass Index (BMI) 30.4 ABG / Lab / Microbiology Data Result Diagrams: 07/15/21 06:51 07/15/21 06:51 Laboratory: Laboratory Results - last 24 hr 07/18/21 16:17: POC Glucose 96 07/19/21 06:58: POC Glucose 91 Indicators for Scoring Admitted with or Primary Diagnosis of CVA/Stroke: Yes Hx of CVA/Stroke: Yes Modified [place] Score MRS Score at time of Evaluation: 3-Moderate disability (He was a 5 at admisison to rehab) NIHSS NIHSS 1a. Level of Consciousness: Alert; keenly responsive 1b. LOC Questions: Answers BOTH questions correctly. 1c. LOC Commands: Performs both tasks correctly. 2. Best Gaze: Normal 3. Visual: Partial hemianopia (Left inferior quadrantanopia.) 4. Facial Palsy: Partial paralysis (total or near-total paralysis of lower face) 5a. Left Arm: Some effort against gravity; 5b. Right Arm: No drift; arm holds 90 (or 45) degrees for full 10 seconds 6a. Left Leg: Drift; leg falls by the end of 5-seconds, but does not hit bed 6b. Right Leg: No drift; leg holds 30-degree position for full 5 seconds 7. Limb Ataxia: Absent 8. Sensory: [id number] sensory loss; 9. Best Language: No aphasia; normal 10. Dysarthria: Normal 11. Extinction and Inattention: Visual, tactile, auditory, spatial, or personal inattention (still with visual neglect) Total: 8 Stroke Questions Stroke Team Activated: No D/C Instructions Discharge Diet: 1800 Calorie Control Diet and - (Low fat and low salt. ) May resume sexual activity in: No Restrictions Weight Bearing Status: Full weight bearing Keep extremity elevated above heart level: Left Arm and Left Leg Additional Activity Instructions: this helps to decrease swelling Call your doctor if you observe: Fever of 101 or Higher, Shortness of breath, Dizziness, Fainting spells, Chest pain, Increased palpitations (irregular heartbeat), Calf discomfort and - (STROKE WARNING SIGNS:1. Sudden numbness or weakness of the face, arm or leg especially if on one side of the body only2. Sudden confusion, trouble speaking or understanding speech3. Sudden trouble seeing in 1 eye or both eyes4. Sudden trouble walking, dizziness, loss of balance or incoordination) Pending Tests Upon Discharge: none Please Follow Up With: Viraj Arias MD Meaningful Use Info Meaningful Use Diagnoses (Choose all that apply): Hemorrhagic CVA CVA Therapy Assessed for PT,OT and/or ST?: Yes Ischemic Stroke Antithrombotic order at d/c?: No Reason antithrombotic not ordered: Treatment not Indicated (it was a hemorrhagic infarct) Dx of Atrial fib/flutter?: No Anticoagulant at discharge?: No Reason anticoagulant not ordered: Treatment not Indicated Statins at discharge?: Yes Primary Dx Acute Ischemic CVA?: No IV tPA ordered during stay?: No Reason IV t-PA not ordered: Treatment not Indicated (the stroke was hemorrhagic) Discharge Plan Admission Admit Date/Time: 06/27/21 15:04 Primary Reason for Your Visit: post stroke debility Attending Provider: Monserrat Longoria Primary Care Provider: Viraj Arias Instructions Patient Instructions: Diabetes and Drinking Alcohol, Intimacy After Stroke, Eating Out When You Have Diabetes, Diabetes: Living Your Life, Discharge Instructions for Stroke, Healthy Lifestyle to Prevent ..., Diabetes: Meal Planning, Diabetes- Measuring Glucose at Home, Diabetes Wearing a Medical ID, ED Hypoglycemia Oral Diabetic ... Additional Instructions / Restrictions: 1. You have done remarkably well in therapy. You still need more therapy but, this can be done wither at home or as an outpatient. You may not recover all the strength on the left side that you had prior to the stroke but, keep working hard and you will improve. Your cognitive function has improved dramatically from when you first came to rehab. 2. I am giving you some information to read about strokes, how to prevent strokes, diabetes and anxiety. I believe the stroke was caused by a combination of anxiety due to stressful work situation, high blood pressure that was not being treated and excessive alcohol intake. Alcohol can increase BP but, it can also cause weakening in the wall or the artery (jace like a bubble on the side of you tire)......this can lead to bursting and then bleeding into the brain. I recommend you read the article I am giving you on diabetes and alcohol and that you adhere to no more than 2 drinks daily. Stress increases BP, sometimes dramatically. I think your stress/anxiety is better controlled now since you are on Sertraline and Buspar. I do not think you are going to need both medications going forward and I having given you a prescription to taper the Buspar off over the next 3 weeks. I recommend that you continue the Sertraline for AT LEAST 6 months to allow your body to adjust to every thing that has happened to you over the past month and until you learn to deal with the fact that you have diabetes and high blood pressure and these are chronic illnesses that need to be managed. You also may need to make peace with the possibility that you may have some long lasting deficits from the stroke. The best way to manage these issues is a combination of medication and psychotherapy. Psychotherapy can help you to accept your chronic illnesses and how to manage your stress so you do not have to take Sertraline or a medication like Sertral ine the rest of your life. You are not crazy. Life is stressful and you have a young child, a new and a very stressful job......give it a chance.....it works better than medication alone. when you first came to rehab you were not only stressed you were angry and argumentative. this may have been due to the stroke + anxiety over your situation. You are a much nicer steven than you were at admission.......managing stress leads to a better quality of life. 3. Goals to prevent another stroke in the future. a. Keep your HGBA1C under 7. This needs to be checked every 3 months and you should always know your last HGBA1C. Your hemoglobin A1c at [facility] was 7.3%. Your blood sugars are under excellent control at the present time and in fact they are in the normal range. Glucophage is a medicine that is less likely to cause low blood sugars BUT, I have given you a handout on the symptoms of a low blood sugar and what to do if you have these symptoms. b. Your BP needs to be less than 130/80. BP can change from minute to minute and it definitely goes way up with stress. I suggest you purchase a BP cuff (the one that goes around your upper arm) and check your BP at different times during the day. Try checking it when you are feeling anxious or stressed to see what happens with the BP. c. The LDL (bad cholesterol) needs to be 70 or less. your LDL was 155 at [facility]. You were started on Lipitor to lower the cholesterol. you will need to have a lipid panel and a liver panel in the next few weeks and Dr. Arias will order this for you. Eating a low fat diet is important. Keto is a high fat diet. A Mediterranean diet is best for patients with high cholesterol. Since you are diabetic and have high cholesterol and history of a stroke you qualify to have diabetic education here at the hospital with the dieticians as an OP. It is hard to absorb all the nuances of diet in controlling diabetes and high cholesterol when you are in the hospital and you have so much information thrown at you. Dr. Arias can give you a referral for diet education if you think you would like to do this. d. You need to stay active and aim for 30 minutes of exercise a day. Make this a Prescription.......you need to do this to stay healthy and live a long life. Walking is great exercise....taking the baby for a cruise in the [facility] is great exercise. e. Lastly, Dr. Arias is your PCP and people with chronic medical illnesses need to follow up with their PCP regularly. Most people who are young think they are healthy and do not need to see a doctor unless they are sick. NOT TRUE. High blood pressure and diabetes are silent Killers. Most people do not feel ill from these conditions until they have had a stroke, a heart attack, kidney failure or loss of eye sight. Make sure to keep all appts with Dr. Arias. 4. I was going to give you a glucometer to check your blood sugars but, you have to stick your fingers to get blood to test and this becomes painful and tiresome. Dr. Arias can prescribe you a monitor that you do not have to poke your fingers to get a reading if he thinks it is necessary. Your blood sugars are excellent now and there is no hurry to get a meter. Your appt with Dr. Arias is next Saturday and you will be fine until then. 5. Education is a very important part of rehab. If you or Fredi have ANY questions after you leave rehab please do not hesitate to call me. CELL: [phone] Office: [phone] or [phone]. Discharge Orders/Prescriptions Prescriptions: New acetaminophen [Tylenol] 325 mg Tablet 650 mg PO Q6H PRN PRN (Reason: PAIN) Qty: 0 RF: 0 buspirone 5 mg Tablet 5 mg PO BID Qty: 35 RF: 0 sertraline 100 mg Tablet 100 mg PO DAILY Qty: 30 RF: 0 Continued atorvastatin 40 mg Tablet 40 mg PO QHS Qty: 30 RF: 0 metformin 500 mg Tablet 500 mg PO BID Qty: 60 RF: 0 lisinopril 10 mg Tablet 10 mg PO BID Qty: 60 RF: 0 Referrals / Follow Up: Viraj Arias MD [Primary Care Provider] - 07/24/21 11:00 am Gilberto Wylie MD [STAFF PHYSICIAN] - 09/25/21 9:00 am ( Neurology appointment ) Disposition Disposition (needs filled in before D/C Order can be placed): Home Health Service Charges/Coding Visit Charges Inpatient E&M: 28889 Disch Hosp
--- NOTE | 2021-07-19 14:19 | CASEMGMT ---
Social Work Spoke with Dr. Longoria to inquire about P2P. stated she did not receive callback. offered to contact again. SW agreed as pt was unsafe to DC home 07/18 due to: DME not in place - issues with insurance verifying and needing to change to multiple DME companies to provide; HHC will not be in place that early; brother was not flying in from [place] whom is going to be pt's primary caregiver; not scheduled to be off work until end of day 07/19. agreed. DC plan remains unchanged. Erica Jenkins, MATERIAL CLERK CLAIM SPECIALIST
--- NOTE | 2021-07-19 15:06 | NURSING ---
discharged home with brother. discharge instructions, medications and appointments reviewed with pt., denies questions or concerns
[2021-07-19 15:11] VITALS: BMI 30.4
[2021-07-19 15:12] VITALS: BP 112/70; PULSE 70; RESP 17; TEMP 36.6; O2SAT 96
== END 2021-07-19 13:30 | disposition home health service (06) | DRG 57 ==
PROVIDERS: Admitting Provider Internal Medicine; PCP Family Medicine; Visit Provider Internal Medicine
DX: I69.354 Hemiplegia and hemiparesis following cerebral infarction affecting left non-dominant side (principal); E87.1 Hypo-osmolality and hyponatremia; E11.9 Type 2 diabetes mellitus without complications; F10.20 Alcohol dependence, uncomplicated; I10 Essential (primary) hypertension; F41.9 Anxiety disorder, unspecified; E78.5 Hyperlipidemia, unspecified; I69.322 Dysarthria following cerebral infarction; I69.398 Other sequelae of cerebral infarction; I69.319 Unspecified symptoms and signs involving cognitive functions following cerebral infarction; I69.392 Facial weakness following cerebral infarction; H53.462 Homonymous bilateral field defects, left side; F32.A Depression, unspecified; Z79.84 Long term (current) use of oral hypoglycemic drugs; E66.9 Obesity, unspecified; Z68.30 Body mass index [BMI] 30.0-30.9, adult; Z79.899 Other long term (current) drug therapy
CPT/HCPCS: 36415; 80048; 80053; 82962; 83735; 84100; 85014; 85018; 85025; 92507; 92523; 92526; 97110; 97112; 97116; 97129; 97130; 97140; 97162; 97166; 97530; 97535; 97802; 97803; 99251; G0463

== ENCOUNTER → 2021-09-26 | Outpatient (CLI) | payer OTHER, SELFPAY ==
[2021-09-26 08:12] LABS: Absolute Lymphocyte Count 1.86 X10^3/uL (0.83-4.51); Absolute Neutrophil Count 2.5 X10^3/uL (2.0-7.7); Basophil# 0.03 X10^3/uL; Basophil% 0.6 % (0-1); Eosinophil# 0.17 X10^3/uL; Eosinophils% 3.4 % (0-5); Hematocrit 43.7 % (40-54); Hemoglobin 15.5 g/dL (13.0-16.5); Lymphocyte # 1.86 X10^3/ul (0.83-4.51); Mean Corp Hgb Conc 35.5 g/dL (32-36); Mean Corpuscular Hgb 33.8 pg (27.0-32.0); Mean Corpuscular Volume 95.2 fL (80-94); Mean Platelet Vol. 9.6 fl (6.2-12.0); Monocyte# 0.42 X10^3/uL; Monocyte% 8.3 % (0-10); NRBC Flagged by Analyzer 0 % (0-5); Neutrophil # 2.54 X10^3/uL (2.7-7.7); Neutrophil % 50.5 % (47-70); Platelet Count 245 K/mm3 (150-450); RBC Distribution Width CV 14.2 % (11.6-14.6); RBC Distribution Width SD 49.2 fl (35.1-43.9); Red Blood Count 4.59 M/mm3 (4.6-6.2)
[2021-09-26 08:34] LABS: Hemoglobin A1c 5.3 % (3.8-5.6)
[2021-09-26 08:42] LABS: Vitamin B12 385 pg/mL (211-911)
[2021-09-26 08:49] LABS: ALB/GLOB Ratio 1.4 RATIO (0.9-2.4); AST(SGOT) 16 U/L (15-37); Alanine Aminotransfer ALT/SGPT 26 U/L (16-61); Albumin, Serum 4.4 g/dL (3.2-5.0); Alkaline Phosphatase 70 U/L (45-117); Anion Gap 8 (5-15); BUN 10 mg/dL (7-18); BUN/Creat Ratio 12.7 RATIO (10-20); Calcium,Total 9.6 mg/dL (8.5-10.1); Chloride 102 mmol/L (98-107); Creatinine, Serum 0.79 mg/dL (0.70-1.30); EST Glomerular Filtration Rate 111 mL/min (>60); Est Glom Filt Rate - Afr Amer 135 mL/min (>60); Globulin 3.1 g/dL (2.2-4.2); Glucose 99 mg/dL (74-106); Potassium 3.9 mmol/L (3.5-5.1); Protein, Total 7.5 g/dL (6.4-8.2); Sodium Level 137 mmol/L (136-145)
[2021-09-26 08:50] LABS: International Normalized Ratio 1.1; Prothrombin Time (Protime)PT. 13.4 SECONDS (11.7-14.9)
[2021-09-29 10:32] LABS: Vitamin B1, Thiamine 136.1 nmol/L (66.5-200.0)
== END | disposition home or self-care (01) ==
PROVIDERS: PCP Family Medicine; Referring Provider Psychiatry & Neurology Neurology; Visit Provider Psychiatry & Neurology Neurology
DX: I69.359 Hemiplegia and hemiparesis following cerebral infarction affecting unspecified side (principal); I61.9 Nontraumatic intracerebral hemorrhage, unspecified; E11.9 Type 2 diabetes mellitus without complications; I10 Essential (primary) hypertension
CPT/HCPCS: 36415; 80053; 82607; 82746; 83036; 84425; 84443; 85025; 85610

== ENCOUNTER 2021-10-08 14:39 | Emergency (ER) | payer OTHER, SELFPAY ==
[2021-10-08 14:41] VITALS: BP 169/115; PULSE 119; RESP 22; TEMP 37.4; O2SAT 95; BMI 23.7
--- NOTE | 2021-10-08 15:30 | EDS_ITS ---
HPI History of Present Illness Chief Complaint: Hypertension Narrative Narrative: 46-year-old male with history of CVA in June and left-sided deficits presenting for elevated blood pressure. He states he did have 1 alcoholic drink today. He noticed his blood pressure was elevated at home and he began to be panicked. On the way here he became very worried because his blood pressure was elevated due to his history of hypertensive/hemorrhagic stroke. Patient states that his left-sided deficits of actually improved significantly. He is able to use his left arm to pour drinks and to lift light things. He is able to ambulate now. He states has been no worsening of this. He has no new visual deficits. He has no headache or paresthesias. [facility] Medical History Cerebrovascular accident (CVA) EtOH dependence Home Medications acetaminophen 325 mg tablet (Tylenol) 650 mg PO Q6H PRN PRN PAIN #0 tabs 07/18/21 [Rx Last Taken Unknown] atorvastatin 40 mg tablet 40 mg PO QHS cholesterol #30 tabs 07/18/21 [Rx Last Taken Unknown] buspirone 5 mg tablet 5 mg PO BID #35 tabs 07/18/21 [Rx Last Taken Unknown] lisinopril 10 mg tablet 10 mg PO BID blood pressure #60 tabs 07/18/21 [Rx Last Taken Unknown] metformin 500 mg tablet 500 mg PO BID blood sugar #60 tabs 07/18/21 [Rx Last Taken Unknown] sertraline 100 mg tablet 100 mg PO DAILY #30 tabs 07/18/21 [Rx Last Taken Unknown] aspirin 81 mg tablet,delayed release (Adult Aspirin Regimen) 81 mg PO DAILY 09/25/21 [History Last Taken Unknown] baclofen 10 mg tablet 10 mg PO TID #90 tabs 09/26/21 [Rx Last Taken Unknown] folic acid 1 mg tablet 1 mg PO DAILY #30 tabs 10/01/21 [Rx Last Taken Unknown] lisinopril 20 mg tablet 20 mg PO BID #60 tabs 10/08/21 [Rx Last Taken Unknown] Allergy/AdvReac Type Severity Reaction Status Date / Time hydrocodone [From Vicodin] Allergy PT UNSURE Verified 10/08/21 14:40 OF REACTION Surgical History H/O hernia repair H/O wisdom tooth extraction Skin tag Social History adopted: No household members: spouse and other details: 1 son who is 16 months old. This is his 2nd marriage. 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 Vodka, Rum, [place]. He likes the taste. substance use type: does not use what type of physical activity do you participate in: additional details: no exercise other than walking around at work. ROS ROS ED Review of Systems ROS Unobtainable: due to encephalopathy Constitutional Constitutional ED: Denies chills or fever(s) Eyes Eyes: Denies change in vision or diplopia ENT ENT ED: Denies rhinorrhea or sore throat Cardiovascular Cardiovascular: Denies chest pain or palpitations Respiratory/Chest Respiratory/Chest: Denies cough or dyspnea Gastrointestinal Gastrointestinal: Denies abdominal pain or constipation Genitourinary Genitourinary ED: Denies dysuria or hematuria Musculoskeletal Musculoskeletal: Denies arthralgias or back pain Integumentary Denies abscess or Abrasions Neurologic Neurologic: Denies headache(s) Psychiatric Psychiatric: Reports anxiety; Denies depression EXAM Physical Exam Const Vital Signs: 10/08/21 14:41 10/08/21 15:06 10/08/21 16:40 Temperature 99.3 F H Temperature Source Temporal Pulse Rate 119 H 84 Respiratory Rate 22 H 18 Respiratory Effort Normal Non-Labored Blood Pressure 169/115 H 132/88 H Blood Pressure Mean 133 Pulse Ox 95 98 Oxygen Delivery Method Room Air Positive well nourished General Appearance ED: NAD; Negative for pallor HEENT Reports moist mucous membranes Negative for trauma Eyes PERRL and EOMs intact bilaterally Chest Wall inspection of chest normal and palpation of chest normal Resp normal respiratory effort and clear to auscultation bilaterally GI normal to inspection, nondistended, normoactive bowel sounds Neuro oriented x3 Psych mental status grossly normal Mood & Affect: anxious Skin no rashes or lesions noted General Skin Exam: Negative for jaundice or pallor MDM MDM MDM Narrative Medical decision making narrative: Patient presenting very anxious with elevated blood pressures. His initial blood pressure was 169/115. After having a long discussion with him about obtaining an accurate blood pressure and calling him down his blood pressure is now 145/98. He states he believes he takes lisinopril twice a day but does not know the dose. He has not any changes in this. I did review the record it looks like he takes 10 mg p.o. twice daily. I do not believe any blood work or imaging at this time as his heart rate, respiratory, blood pressure have all normalized now that he is calm. He has no new deficits. Blood pressure currently 129/87. He did not need medication. I spoke with Dr. Viraj Arias who recommended increasing his lisinopril to 20 mg twice daily. This was discussed with the patient. Patient is not to drink alcohol until he follows up with his primary. Patient knowledge understanding. Impression: 1. Hypertension 2 history of hemorrhagic stroke Discharge Plan Triage Chief Complaint: Hypertension ED Provider: Neal Lugo Dx/Rx/DC Orders Instructions: ED High Blood Pressure Hypertension Prescriptions: New lisinopril 20 mg tablet 20 mg PO BID Qty: 60 0RF No Action aspirin [Adult Aspirin Regimen] 81 mg tablet,delayed release (DR/EC) 81 mg PO DAILY baclofen 10 mg tablet 10 mg PO TID Qty: 90 5RF folic acid 1 mg tablet 1 mg PO DAILY Qty: 30 4RF acetaminophen [Tylenol] 325 mg Tablet 650 mg PO Q6H PRN PRN (Reason: PAIN) Qty: 0 0RF buspirone 5 mg Tablet 5 mg PO BID Qty: 35 0RF Rx Instructions: take 1 tab in the AM and 1 at bed for 2 weeks then 1 tab at bedtime until gone and discontinue sertraline 100 mg Tablet 100 mg PO DAILY Qty: 30 0RF atorvastatin 40 mg Tablet 40 mg PO QHS Qty: 30 0RF metformin 500 mg Tablet 500 mg PO BID Qty: 60 0RF lisinopril 10 mg Tablet 10 mg PO BID Qty: 60 0RF Primary Care Provider: Viraj Arias Referrals: Viraj Arias MD [Primary Care Provider] - Disposition Disposition: Home, Self Care Discharge Date/Time: 10/08/21 16:41
[2021-10-08 16:40] VITALS: BP 132/88; PULSE 84; RESP 18; O2SAT 98
== END 2021-10-08 16:41 | disposition home or self-care (01) ==
PROVIDERS: Emergency Provider Student in an Organized Health Care Education/Training Program; PCP Family Medicine; Visit Provider Student in an Organized Health Care Education/Training Program
DX: I10 Essential (primary) hypertension (principal); Z86.73 Personal history of transient ischemic attack (TIA), and cerebral infarction without residual deficits
CPT/HCPCS: 99282

== ENCOUNTER → 2021-10-09 | Outpatient (CLI) | payer OTHER, SELFPAY ==
--- NOTE | 2021-10-09 07:16 | CT_ITS ---
STUDY: CT BRAIN WITHOUT CONTRAST REASON FOR EXAM: Male, 46 years old. Follow-up right basal ganglia hemorrhage RADIATION DOSAGE (If Supplied By Facility): CTDIvol = ( 44.99 ) mGy, DLP = ( 812.98 ) mGycm TECHNIQUE: Transaxial CT imaging of the brain was performed without administration of intravenous contrast material. Individualized dose optimization techniques were used for this CT. COMPARISON: Comparison is made with prior study dated 06/19/2021. FINDINGS: Normal soft tissue structures. Normal calvarium. Normal size ventricles and extra-axial spaces for the patient''s age. Normal white matter tracts of the cerebral hemispheres. There now is evidence of a encephalomalacia in the right basal ganglion at the site of the prior right basal ganglier hemorrhage. No significant mass effect is seen. No acute bleed is seen. Normal brainstem. Normal cerebellum. There is no intracranial hemorrhage. There are no findings of an acute ischemic infarction. Small mucosal polyps or retention cysts at the base of the right maxillary sinus. Mucosal thickening and partial opacification of the left ethmoid sinus. CT/Brain/Head without Contrast IMPRESSION: Focal area of encephalomalacia at the site of prior right basal ganglion hemorrhage. Electronically Signed: Jalen Bhatt MD at 14:05 EDT ,
--- NOTE | 2021-10-09 07:16 | RAD_ITS ---
STUDY: X-RAY - LEFT SHOULDER REASON FOR EXAM: Male, 46 years old. Left shoulder pain. Frozen shoulder. TECHNIQUE: 4 view(s) of the shoulder. COMPARISON: None. FINDINGS: Normal glenohumeral articulation. There is minimal degenerative arthrosis of the acromioclavicular joint without inferior osseous spur formation. Normal acromion. There is no acute fracture, dislocation or destructive osseous pathology. Normal humeral head and visualized proximal humerus. The soft tissue structures are unremarkable. Normal visualized pulmonary apex. RAD/Shoulder min 2 Views IMPRESSION: Mild arthrosis of the acromioclavicular joint. Electronically Signed: Miguelangel Andrade DO at 20:44 EDT ,
== END | disposition home or self-care (01) ==
LOC: CT 07:15
PROVIDERS: PCP Family Medicine; Referring Provider Psychiatry & Neurology Neurology; Visit Provider Psychiatry & Neurology Neurology
DX: M25.512 Pain in left shoulder (principal); I61.9 Nontraumatic intracerebral hemorrhage, unspecified
CPT/HCPCS: 70450; 73030

== ENCOUNTER 2021-10-19 20:13 | Emergency (ER) | payer OTHER, SELFPAY ==
[2021-10-19 20:15] VITALS: BP 143/97; PULSE 58; RESP 16; TEMP 35.7; O2SAT 100; BMI 23.8
[2021-10-19 20:21] VITALS: BP 143/97; PULSE 58; RESP 16; TEMP 35.7; O2SAT 100
[2021-10-19 20:32] VITALS: BP 134/89; PULSE 62; RESP 17; O2SAT 98
--- NOTE | 2021-10-19 20:46 | EDS_ITS ---
HPI History of Present Illness Chief Complaint: Hypertension Informant: patient and spouse/S.O. Narrative Narrative: Patient here with spouse for evaluation elevated blood pressure at home systolic 160s over 90s. History of hemorrhagic stroke this past June secondary to elevated blood pressure. Patient was sent to [facility] in [place]. He has been on blood pressure medicines. Of note was seen 11 days ago in the ED had his lisinopril increased to 20 mg twice daily. Follow with PCP the next day, switch over to quinapril 20 mg daily. Blood pressures been controlled. He is also was on anxiety medicines of sertraline, however was weaned off due to causing erectile dysfunction. He is have increased anxiety due to his blood pressure. He is taking his medications. He has residual currently left upper extremity weakness, he has function of the legs back he will go back to work here soon. Prior similar symptoms: Yes PFSH PFSH Medical History Cerebrovascular accident (CVA) EtOH dependence Home Medications acetaminophen 325 mg tablet (Tylenol) 650 mg PO Q6H PRN PRN PAIN #0 tabs 07/18/21 [Rx Last Taken Unknown] atorvastatin 40 mg tablet 40 mg PO QHS cholesterol #30 tabs 07/18/21 [Rx Last Taken Unknown] buspirone 5 mg tablet 5 mg PO BID #35 tabs 07/18/21 [Rx Last Taken Unknown] metformin 500 mg tablet 500 mg PO BID blood sugar #60 tabs 07/18/21 [Rx Last Taken Unknown] aspirin 81 mg tablet,delayed release (Adult Aspirin Regimen) 81 mg PO QODAY 09/25/21 [History Last Taken Unknown] baclofen 10 mg tablet 10 mg PO TID #90 tabs 09/26/21 [Rx Last Taken Unknown] folic acid 1 mg tablet 1 mg PO DAILY #30 tabs 10/01/21 [Rx Last Taken Unknown] quinapril 20 mg tablet 20 mg PO DAILY 10/19/21 [History Last Taken Unknown] Allergy/AdvReac Type Severity Reaction Status Date / Time hydrocodone [From Vicodin] Allergy PT UNSURE Verified 10/19/21 20:33 OF REACTION Surgical History H/O hernia repair H/O wisdom tooth extraction Skin tag Social History adopted: No household members: spouse and other details: 1 son who is 16 months old. This is his 2nd marriage. 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 Vodka, Rum, [place]. He likes the taste. substance use type: does not use what type of physical activity do you participate in: additional details: no exercise other than walking around at work. ROS ROS ED Constitutional Constitutional ED: Denies chills, fever(s) or sweats Eyes Eyes: Denies change in vision ENT ENT ED: Denies dysphagia or sore throat Cardiovascular Cardiovascular: Denies chest pain, leg edema, palpitations or racing heartbeat Respiratory/Chest Respiratory/Chest: Denies cough, dyspnea or dyspnea on exertion Gastrointestinal Gastrointestinal: Denies abdominal pain, diarrhea, nausea or vomiting Genitourinary Genitourinary ED: Denies dysuria, hematuria or urinary frequency Musculoskeletal Musculoskeletal: Denies back pain, extremity pain or neck pain Integumentary Denies rash or wounds Neurologic Neurologic: Denies headache(s), paresthesias or weakness EXAM Physical Exam Const Vital Signs: 10/19/21 20:15 10/19/21 20:21 10/19/21 20:31 Temperature 96.3 F L 96.3 F L Temperature Source Temporal Temporal Pulse Rate 58 L 58 L Respiratory Rate 16 16 Respiratory Effort Normal Non-Labored Respiratory Pattern Normal Blood Pressure 143/97 H 143/97 H Blood Pressure Mean 112 112 Pulse Ox 100 100 Oxygen Delivery Method Room Air Room Air 10/19/21 20:32 10/19/21 21:02 Temperature Temperature Source Pulse Rate 62 79 Respiratory Rate 17 18 Respiratory Effort Respiratory Pattern Blood Pressure 134/89 H 129/85 H Blood Pressure Mean 104 Pulse Ox 98 96 Oxygen Delivery Method Room Air Positive well nourished and well developed General Appearance ED: well developed and NAD HEENT Reports moist mucous membranes normocephalic and atraumatic Eyes PERRL, EOMs intact bilaterally and conjunctivae normal General Eye ED: Yes normal appearance of both eyes Neck no lymphadenopathy and supple General: Negative for tenderness Chest Wall Chest: Negative for tenderness Resp normal respiratory effort and normal air movement Effort and Inspection: symmetric chest movement; Negative for respiratory distress Cardio regular rate, regular rhythm and no murmurs Peripheral Pulses: pulses 2+ throughout GI normal to inspection, nondistended, normoactive bowel sounds and non-tender Palpation: Negative for guarding or rebound tenderness present Back/Spine no CVA tenderness and no thoracic nor lumbar tenderness Extremity normal to inspection General Extremety ED: Negative for edema or tenderness General Extremity: Negative for edema Neuro oriented x3 and no sensory deficits noted Neuro Narrative: Residual mild weakness left upper extremity. Sensorium / Orientation: awake and alert Skin no rashes or lesions noted and no wounds MDM MDM MDM Narrative Medical decision making narrative: Patient blood pressure 143/97 on arrival recheck 134/89. He is more reassured. Discussed blood pressure taking in the morning when he awakens and at night before bedtime and keep a log. Discussed not to take this throughout the day as it could be falsely elevated. Discussed anxiety can raise this also. He will discuss with his PCP other options for anxiety treatments. This can be done as an outpatient. No indication for testing in the ED. He will follow-up as an outpatient. All questions answered. Discharge Plan Triage Chief Complaint: Hypertension ED Provider: Luis Treviño Dx/Rx/DC Orders Clinical Impression: Hypertension, Cerebrovascular accident (CVA) Instructions: Controlling High Blood Pressure Prescriptions: No Action aspirin [Adult Aspirin Regimen] 81 mg tablet,delayed release (DR/EC) 81 mg PO QODAY baclofen 10 mg tablet 10 mg PO TID Qty: 90 5RF folic acid 1 mg tablet 1 mg PO DAILY Qty: 30 4RF acetaminophen [Tylenol] 325 mg Tablet 650 mg PO Q6H PRN PRN (Reason: PAIN) Qty: 0 0RF buspirone 5 mg Tablet 5 mg PO BID Qty: 35 0RF Rx Instructions: take 1 tab in the AM and 1 at bed for 2 weeks then 1 tab at bedtime until gone and discontinue atorvastatin 40 mg Tablet 40 mg PO QHS Qty: 30 0RF metformin 500 mg Tablet 500 mg PO BID Qty: 60 0RF quinapril 20 mg tablet 20 mg PO DAILY Primary Care Provider: Viraj Arias Referrals: Viraj Arias MD [Primary Care Provider] - 1 Week Activity Restrictions/Additional Instructions: Continue current dosing of blood pressure medicines. Discussed with your PCP for other options for treatment for anxiety. Take your blood pressure in the morning when you wake up and prior to bed and maintain a log.. Disposition Disposition: Home, Self Care Discharge Date/Time: 10/19/21 21:03
[2021-10-19 21:02] VITALS: BP 129/85; PULSE 79; RESP 18; O2SAT 96
== END 2021-10-19 21:03 | disposition home or self-care (01) ==
LOC: ED 20:46
PROVIDERS: Emergency Provider Emergency Medicine; PCP Family Medicine; Visit Provider Emergency Medicine
DX: I10 Essential (primary) hypertension (principal); Z79.84 Long term (current) use of oral hypoglycemic drugs; Z79.82 Long term (current) use of aspirin; Z79.899 Other long term (current) drug therapy; Z86.73 Personal history of transient ischemic attack (TIA), and cerebral infarction without residual deficits
CPT/HCPCS: 99282

== ENCOUNTER 2022-01-16 14:00 | Outpatient (RCR) | payer OTHER, SELFPAY ==
--- NOTE | 2021-08-23 15:51 | HP.PTEVAL_ITS ---
Patient's Visit Information TRACY MANRIQUE Jr. is a 46 year old M referred to Physical Therapy by Dr. Viraj Arias MD with a diagnosis of CVA, L hemiparesis. Date of Evaluation: 08/22/21 Physical Therapist: Jayden Patel DPT - Visit Plan Frequency: 2x /Week Duration: 6 Weeks Plan: Start with LLE coordination, functional strengthening. Add in gait progression and reciprocal control of LLE. - Subjective Pt. his here today for his initial evaluation of L hemiparesis. Pt. had a CVA with resulting L steffen paresis not LUE more effected than L LE on 06/19/21. He was on the phone with his when he started to have altered speech and decreased use of LUE. He went to ER and was diagnoses with a hemorrhagic CVA, Noncontrast CT brain showed a right basal ganglia parenchymal hematoma measuring 3.8 cm suggestive of a right lenticulostriate hypertensive hematoma. He muller been in inpatient rehab, but was released ~6 weeks ago. Pt. was doing HH PT for the past few weeks. He did have some initial Homonymous bilateral field defects, left side, but he reports this is improving. He works a [employer]. He did try to go back, but brought a motorized wheel chair with him and his employer told him this had to go through a committee to be allowed. He has not been back to work since. He is hopeful to regain full use of his LLE without issues. He is also to see OT and SP for evaluations next week. He is walking well, but does report he catches his L foot at times. No falls noted. Pt. is not driving yet. He is overall doing better, but reports he has some limitations as well. - Pain L shoulder Pain Intensity (Out of 10): 1 Pain Intensity Range: 0, 2 Comment: like a stretch. - Objective POSTURE: Pt. has decent posture in stance. Tends to keep L UE in guarded posture. PALPATION: No pain with palpation. NEURO: Pt, has decreased sensation in LLE to light touch. Pt. has hyper reflexivity to L side. Pt. has marked clonus in his L calf. ROM: Pt. has normal ROM of BLEs, marked clonus with quick stretch of L calf. MMT: LLE: ankle: DF 31.1#, PF 57.3#, INV 23.5#, EVR 17.3#. Knee: ext 44.1#, flexion 27.3#; hip: flexion 41.1#, abd 23.5#, ext 17.1#. RLE: ankle: DF 47.8#, PF 61.1#, INV 28.1#, EVR 26.5#. Knee: ext 53.1#, flexion 35.1#; hip: flexion 51.3#; abd 29.1#, ext 23.1#. Core strength: fair. GAIT: Pt. ambulates without AD. He has decreased control of his LLE during swing and occasional catching of L foot, but able to maintain good stability throughout. Increased hip hiking to make up for decreased foot clearance. STAIRS: Pt. is able to complete with 1 HR with reciprocal pattern with marked functional weakness in his LLE. - Balance/Special Test Scores Functional Gait Assessment Score: 20 % Disability: 33.3400 CATSIB Score (Max score 120 seconds): 104 Lower Extremity Functional Score: 59 TUG Test Time Seconds: 12.4 30 Second Chair Rise Test Seconds: 10 - Goals Goal 1:: LTG: Pt. to be I with HEP for LE strengthening and balance/coordination activities. Goal Time Frame: 4-6 Weeks Goal 2:: STG: Pt. to complete TUG with time of less than 8 seconds indicating improved functional mobility. Goal Time Frame: 2 Weeks Goal 3:: LTG: Pt. to have increased FGA to score of greater than 27/30 indicating increased dynamic balance. Goal Time Frame: 4-6 Weeks Goal 4:: LTG: Pt. to ambulate with normal gait pattern and increased stability, step length with LLE. Goal Time Frame: 4-6 Weeks Goal 5:: LTG: Pt. to complete 6 MWT with distance of at least 1000+, indicating increased overall endurance. - Rehabilitation Potential Physical Therapy Diagnosis: Pt. has signs and symptoms consistent with CVA with L hemiparesis. Pt. has marked LLE weakness and decreased motor control. Pt. Rehabilitation Potential: Good - Anticipated Interventions Patient/Client Instruction: Educate patient on: Condition, Plan of Care, Risk Factors, Benefits of Fitness Program For the Purpose of:: To decrease pain, To decrease swelling/inflammation, To increase ROM, To improve nutrient delivery to tissue, To increase oxygenation perfusion, To improve muscle performance and motor function, To improve ability to perform ADL's Therapeutic Exercise to Include: Strength training, Endurance training, Balance training, Coordination, Body mechanics, Postural training, Flexibilty training, Gait and locomotor training For the Purpose of:: To increase ROM, To improve nutrient delivery to tissue, To increase oxygenation perfusion, To improve muscle performance and motor function, To improve ability to perform ADL's, To improve ability of physical actions for home/community/work/leisure, To improve gait and locomotor functions, To improve health of tissue, To decrease soft tissue restriction, To increase flexibility/ROM Thank you for the opportunity to evaluate your patient. For Medicare and Medicare HMO plans, please review the plan of care and approve it. It will need to be FAXED BACK to us at [phone] for Medicare purposes. For Medicare only, by signing this I certify the plan of care. Please let me know if there are questions or concerns regarding this plan of care. Physician Sign ature: Date:
--- NOTE | 2021-08-28 17:24 | HP.OTEVAL ---
Patient's Visit Information TRACY MANRIQUE Jr. is a 46 year old M, referred to Occupational Therapy by Dr. Viraj Arias MD, with a diagnosis of R CVA. Date of Evaluation: 08/28/21 Occupational Therapist: Beatriz Tabares - Subjective Pt presents w/ self- pt reports having CVA 06/19/21; he reports that he was on the phone with his when he started to feel his L side weaken and had speech difficulties. He went to [facility] ER and the scans showed a L hemorrhagic CVA showing probably hypertensive hematoma. Pt received inpatient rehab at [facility] after 2 weeks (being transferred) from [facility]. 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 - ADLs Fasteners: Tie shoes, Buttons, Zippers Comments: increased time/effort Eating: Cut food Kitchen: Chop with knife, Peel fruits & vegetables, Open jars, Open bottle caps, Lift gallon of milk, Pour from pitcher, Lift saucepan, Take dish out of oven Household: Laundry, Wash windows Yard: Mow lawn Comments: Pt is R hand dominant and is compensating w/ two handed tasks; he is able to complete most ADLs ind. but requires time/effort and modified way in which to do it. - Pain L shoulder 3 Pain Intensity Range: 0, 3 - ROM Shoulder: L flex: 100 ext: 60 Elbow: L flex: 120 ext: -30 Forearm: sup: 80 pro: WFL Wrist: flex: 60* ext: 25* UD: 25 RD:14 Opposition: 8 ROM Comments: able to make composite fist w/ increased time/effort; able to straighten all fingers w/ increased time/effort - Strength Class B Truck Driver: L 9# : R 85# Lateral Pinch: L: 10 R 19# Tripod Pinch: L 0 (difficulty w/ positioning) R 25 - Movement Movement Comments: generally difficulty isolating finger movements and completing all grasps - Nine Hole Peg Right: 22.8 Left: 41.36 - only taking pegs out- unable to place pegs - Goals Goal:: Pt will improve paper inspector strength >15# in order to complete ADLs/IADL tasks more independently. Goal:: Pt will demonstrate improved L shoulder ROM to > 135* flexion and >80* abduction in order to complete ADL/IALD tasks. Goal:: Pt will report improved pain levels no more than 1/10 during ADL/IADL tasks. Goal:: Pt will demonstrate improved coordination/dexterity skills of L hand by completing 9 hole peg test in its' entirety. Goal:: Pt will report improved overall sensation in L hand WFL compared to R hand. Goal:: pt will report improved independence by completing full meals (pt cooking), cutting food, opening jars, and completing yardwork. - Rehabilitation General Assessment: Pt s/p R CVA causing L hemiparesis impacting ability to complete ADLs/IADLs, word and causing pain during each day. Pt has limited strength, ROM, coordination and fine motor skills. He is making progress and motivated to continue doing so as he has a family and works full-time. Pt would benefit from outpatient OT services to focus on skill deficits in order to maximize independence and neuroplasticity. Rehabilitation Potential: Good - Anticipated Interventions A/AAROM/PROM, Strengthening, Sensory Retraining, Fine Motor Coord/Kenneth, Neuro Reeducation, ADL Training, Home Program - Visit Plan Frequency: 2x /Week Duration: 3 Months General Plan: Pt will benefit from cont. outpatient OT services for 2x/week for 10-12 weeks to continue progressing and maximizing independence for ADLs/IADLs and work tasks. TEXT: Thank you for the opportunity to evaluate your patient. For Medicare and Medicare HMO plans, please review the plan of care and approve it. It will need to be FAXED BACK to us at [phone] for Medicare purposes. Please let me know if there are questions or concerns regarding this plan of care. Physician Signature: Date:
--- NOTE | 2021-09-19 07:51 | PT ---
I am writing this note in regards to Mr Jay Yu. I evaluated him in physical therapy on 08/23/21. At this point in time he was doing well for having a recent CVA, but still had marked weakness in his LLE ~60% the strength of his RLE globally as seen in pressure gauge testing. He was able to ambulate without AD, but has marked difficulty with L toe clearance and has adopted increased hip hiking to complete L foot advancement. He was walking shorter distances up to 500' or so. He was seen again on 09/14/21 with improvements. He reports being able to walk up to 1-1.5 miles as he did so at a [facility]. He reports no troubles with this. He was still walking with increased L hip hiking to assist with advance his LLE. Pt. has not been to very many PT appointments at this point in time, but is making some progress. I do think he needs to continue with working in PT and outside of PT to increase his active L DF (coordination). I do think this is something that will improve with repition and further PT. I hope this is helpful. Please let me know if you need any other information Jayden Patel DPT [facility]
--- NOTE | 2021-09-22 11:39 | HP.PTREVAL ---
Dr. Viraj Arias MD, It has been my pleasure to treat TRACY MANRIQUE Jr. over the last 3 visits for CVA, L hemiparesis. Please see the progress note below for an update on the physical therapy plan of care! Subjective: Pt is trying to get a reasonable accomadation to get back to work. Pt wants to be able to have the quad cane and a wheelchair at work in case he gets tired. Pt reports that he does catch his L toe when he first starts walking but the longer he walks the better he gets. He does not want a brace. 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 For his job duties he has to walk to the floor 3-4 times a day at approx 200 feet total. He muller no stairs at work and has a ramp up to the building with a railing but he can go up and down the ramp with out the railing. He is still in OT/PT at this time. He feels that he was getting some tingling through his legs. Objective/Function: Gait: walks indep with good stride length with increase catching of the L toe while walking into the dept but no LOB. Stairs: up and down recip with a handrail with no LOB with SBA. Squats to machine operator hop picker objects from the floor X 4 without any LOB. 6 min walk test: Pt walked indep without assistive device or AFO 1,014 feet in 6 minutes with no LOB. Squat test: Pt is able to do a full squat to the ground with B UE support but also able to machine operator hop picker objects from the floor without any LOB. Sit to stand test: using one hand he can stand X 10 times in 30 seconds. CATSIB: 95. FGA: 21. Curb step: Pt was able to go up and down a 6 inch curb step with no UE support leading with his L LE with no LOB X 3/3 attempts. Based upon the patients evaluation today and his job duties of desk work and walking down a hallway approx 200 feet several times a day, I feel that the patient is able to go back to work. I feel the patient would benefit having a cane with him and a wheelchair in case he gets fatigued throughout the day. 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 Plan Plan: Add floor transfers with half kneel pattern to build confidence for home. Please work on EC balance on and off foam,, turning 180 degrees at variable speeds, L LE proprioception and coordination, as well as distracted gait such as head turns and stop and go. Start with LLE coordination, functional strengthening. Add in gait progression and reciprocal control of LLE. Balance/Gait/Functional tests - Balance/Special Test Scores Functional Gait Assessment Score: 21 % Disability: 30.0000 CATSIB Score (Max score 120 seconds): 95 Lower Extremity Functional Score: 59 TUG Test Time Seconds: 12.4 Tug Test: <20 sec.=mostly independent 30 Second Chair Rise Test Seconds: 10 Goals Goal 1:: LTG: Pt. to be I with HEP for LE strengthening and balance/coordination activities. Goal Time Frame: 4-6 Weeks Goal 2:: STG: Pt. to complete TUG with time of less than 8 seconds indicating improved functional mobility. Goal Time Frame: 2 Weeks Goal 3:: LTG: Pt. to have increased FGA to score of greater than 27/30 indicating increased dynamic balance. Goal Time Frame: 4-6 Weeks Goal 4:: LTG: Pt. to ambulate with normal gait pattern and increased stability, step length with LLE. Goal Time Frame: 4-6 Weeks Goal 5:: LTG: Pt. to complete 6 MWT with distance of at least 1000+, indicating increased overall endurance. Anticipated Interventions Patient/Client Instruction: Educate patient on: Condition, Plan of Care, Risk Factors, Benefits of Fitness Program For the Purpose of:: To decrease pain, To decrease swelling/inflammation, To increase ROM, To improve nutrient delivery to tissue, To increase oxygenation perfusion, To improve muscle performance and motor function, To improve ability to perform ADL's Therapeutic Exercise to Include: Strength training, Endurance training, Balance training, Coordination, Body mechanics, Postural training, Flexibilty training, Gait and locomotor training For the Purpose of:: To increase ROM, To improve nutrient delivery to tissue, To increase oxygenation perfusion, To improve muscle performance and motor function, To improve ability to perform ADL's, To improve ability of physical actions for home/community/work/leisure, To improve gait and locomotor functions, To improve health of tissue, To decrease soft tissue restriction, To increase flexibility/ROM Please do not hesitate to contact me at [phone] by phone or if you have questions or concerns regarding this new plan of care! Sincerely, Romy Anaya, MPT
--- NOTE | 2021-12-12 11:59 | HP.SP.DC_ITS ---
ST Discharge Summary - Discharged: Discharge: Jay Yu is discharged from [facility] as of December 11, 2021. He was evaluated on 08/28/21 for evaluation of cognitive deficits following his CVA. He was evaluated for dysarthria which was nearly resolved at the time of the evaluation. Therapy was recommended weekly for 1 month. The patient cancelled one visit and no other visits were scheduled, therefore, he is discharged. Patient may be re-evaluated if he wishes to return to therapy. Thank you for allowing me to participate in the care of this patient.
--- NOTE | 2022-03-14 16:40 | HP.OT.NRP ---
TRACY MANRIQUE Jr. was seen in my office for initial evaluation on 08/28/21. The following Plan of Care was established for this patient: Initial Frequency: 2x /Week Initial Duration: 3 Months Plan: continue with OT POC Anticipated Interventions: A/AAROM/PROM, Strengthening, Sensory Retraining, Fine Motor Coord/Kenneth, Neuro Reeducation, ADL Training, Home Program This patient was last seen in our office 10/04/21. Pertinent comments regarding their Occupational therapy will appear below: pt was seen for 4 OT session following a CVA. due to time lapse in services pt d/c at this time. At this point I will be discontinuing this patient from occupational therapy. I would be happy to see this patient again in the future if found appropriate by the physician. Thank you! Faby Willard, OTR/L, CHT
== END 2022-01-16 19:00 | disposition home or self-care (01) ==
LOC: PT 14:00
PROVIDERS: PCP Family Medicine; Referring Provider Family Medicine; Visit Provider Family Medicine
DX: I69.922 Dysarthria following unspecified cerebrovascular disease (principal); I69.354 Hemiplegia and hemiparesis following cerebral infarction affecting left non-dominant side
CPT/HCPCS: 92522; 97110; 97116; 97161; 97165; 97530

== ENCOUNTER 2022-02-15 13:01 | Outpatient (RCR) | payer OTHER, SELFPAY | END 2022-02-15 19:00 | disposition home or self-care (01) | LOC: PT 13:01 | PROVIDERS: PCP Family Medicine; Referring Provider Family Medicine; Visit Provider Family Medicine | DX: I69.354 Hemiplegia and hemiparesis following cerebral infarction affecting left non-dominant side (principal) ==

== ENCOUNTER → 2022-04-09 | Outpatient (CLI) | payer OTHER, SELFPAY ==
--- NOTE | 2022-04-09 13:52 | ECHOD_ITS ---
Reason For Study: HTN, CVA Procedure This was a 2D Doppler, Color Flow transthoracic echocardiogram. Exam performed in department. Left Ventricle Normal LV size. Left ventricular systolic function is normal. The estimated ejection fraction is 65 %. Stage 1 diastolic dysfunction. No regional wall motion abnormalities noted. Right Ventricle Normal RV size. Normal systolic function. Atria Normal left atrium. Normal right atrium. Bubble contrast study is positive for PFO. Mitral Valve Normal mitral valve. Tricuspid Valve Normal tricuspid valve. Aortic Valve Trisinus/trileaflet aortic valve. Pulmonic Valve Normal pulmonic valve. Great Vessels Normal aortic root. The pulmonary artery is normal size. Normal inferior vena cava. Pericardium/Pleural No pericardial effusion. Medication 22 gauge I.V. with prn adaptor inserted into right arm. Performed a rapid injection of agitated mix of 9 cc saline and 1cc air to assess for atrial septal defect. MMode/2D Measurements & Calculations LVIDd: 4.6 cm IVSd: 1.0 cm Ao root diam: 3.9 cm LVIDs: 2.5 cm LVPWd: 1.0 cm RVDd: 3.1 cm FS: 45.7 % LAV(MOD-bp): 55.0 ml LVAd ap4: 29.5 cm2 LVAd ap2: 29.9 cm2 LAV(MOD-bp) Indexed: 27.7 ml/m2 LVLd ap4: 8.5 cm LVLd ap2: 8.7 cm LAV(MOD-sp2): 61.8 ml EDV(MOD-sp4): 85.9 ml EDV(MOD-sp2): 87.2 ml LAV(MOD-sp4): 49.0 ml EDV(sp4-el): 86.3 ml EDV(sp2-el): 86.9 ml LVAs ap4: 15.5 cm2 LVAs ap2: 15.7 cm2 LVLs ap4: 7.6 cm LVLs ap2: 7.4 cm ESV(MOD-sp4): 27.7 ml ESV(MOD-sp2): 28.5 ml ESV(sp4-el): 27.0 ml ESV(sp2-el): 28.2 ml EF(MOD-sp4): 67.7 % EF(MOD-sp2): 67.4 % EF(sp4-el): 68.8 % SV(MOD-sp4): 58.2 ml SV(MOD-sp2): 58.7 ml SV(sp4-el): 59.3 ml LA A4 area: 18.5 cm2 LA dimension(2D): 3.5 cm RA A4 area: 12.0 cm2 Time Measurements MV dec time: 0.20 sec Doppler Measurements & Calculations MV E max viktor: 70.9 cm/sec Lat Peak E' Viktor: 13.3 cm/sec Med Peak E' Viktor: 7.7 cm/sec MV A max viktor: 81.2 cm/sec E/E' lat: 5.3 E/E' med: 9.2 MV E/A: 0.87 Ao V2 max: 166.5 cm/sec LV V1 max: 132.8 cm/sec MV dec slope: 363.4 cm/sec2 Ao max P.1 mmHg LV V1 max P.1 mmHg PA V2 max: 106.9 cm/sec ECHO/Echo Complete Interpretation Summary Normal LV size. Left ventricular systolic function is normal. The estimated ejection fraction is 65 %. Stage 1 diastolic dysfunction. Bubble contrast study is positive for PFO. Ordering Physician: Gilberto Wylie Referring Physician: Viraj Arias MD Performed By: Susannah Gonzales RDCS
== END | disposition home or self-care (01) ==
PROVIDERS: PCP Family Medicine; Visit Provider Psychiatry & Neurology Neurology
DX: I63.9 Cerebral infarction, unspecified (principal); I10 Essential (primary) hypertension
CPT/HCPCS: 93306; A4216

== ENCOUNTER 2022-06-06 11:37 | Emergency (ER) | payer OTHER, SELFPAY ==
[2022-06-06 11:38] VITALS: BP 146/100; PULSE 64; RESP 18; TEMP 35.5; O2SAT 100
[2022-06-06 11:39] VITALS: BMI 26.4
--- NOTE | 2022-06-06 12:02 | CT_ITS ---
INDICATION: Left-sided paresthesias, tingling. EXAMINATION: CT Head or Brain W/O Contrast Injection TECHNIQUE: Multiple axial images were obtained of the head without intravenous contrast. A radiation dose optimization technique was used for this scan. IV Contrast dosage and agent: None. COMPARISON: October 09, 2021 CT brain. FINDINGS: BRAIN PARENCHYMA: No intra- or extra-axial hemorrhage. No evidence of acute infarct. Encephalomalacia and small calcification within the right basal ganglia consistent with sequela of prior hemorrhage. This has evolved, decreased in size compared to the prior examination. No intracranial mass or mass effect. No vasogenic edema. There is preservation of the stanton/white matter interface. Parenchymal volume loss, greater than expected for patient age. Posterior fossa structures are unremarkable. CSF SPACES: Appropriate for age. No hydrocephalus. Basal cisterns are patent. No abnormal extra-axial fluid collection. CALVARIUM, SKULL BASE, PARANASAL SINUSES AND MASTOID AIR CELLS: Hypoplastic frontal sinuses. Mild mucosal thickening in the maxillary sinuses and patchy opacity in the ethmoid air cells. Mastoid air cells are clear. No discrete lytic or blastic abnormalities. Calvarium is intact. ORBITS: Both globes, extraocular muscles, optic nerves and retrobulbar fat appear unremarkable. ASPECTS Score for Acute Strokes: 10 CT/Brain/Head without Contrast IMPRESSION: No acute intracranial findings. Sequela of prior right basal ganglia hemorrhage. Electronically Signed: hCino Boston MD at 13:32 EDT ,
--- NOTE | 2022-06-06 12:03 | EX.ED.DYSGE1 ---
HPI History of Present Illness Chief Complaint: Numb/Ting Informant: patient Narrative Narrative: Patient presents with some increased tingling on his left leg. This patient had a significant stroke about a year ago. He had left-sided neglect and weakness. It has gotten much better. He states he gets progressive gains all the times. He has been having lots of spasticity. He recently got a massage that helped this a lot. He is taking his medication including statin blood pressure metformin aspirin. He states he always has some pain in his left leg also and some numbness. He used to not feel things at all but his sensation is slowly improving still. Today his left leg just had more tingling and it than normal. Is actually not a reduction in his symptoms but is rather an increase. He has not noticed any weakness or change in his gait or strength at all. His left arm is not affected. His left face although has chronic symptoms is also not affected today. He was just concerned because of the change in his symptoms in a relatively short period of time even though he does have progressive improvement of sensation. He has no trauma. No fevers or chills. No change in diet or medications. He does have anxiety. He also feels that some of this might just be in his head and be his concern for symptoms. [facility] Medical History Cerebrovascular accident (CVA) EtOH dependence Home Medications acetaminophen 325 mg tablet (Tylenol) 650 mg PO Q6H PRN PRN PAIN #0 tabs 07/18/21 [Rx Last Taken Unknown] atorvastatin 40 mg tablet 40 mg PO QHS cholesterol #30 tabs 07/18/21 [Rx Last Taken Unknown] buspirone 5 mg tablet 5 mg PO BID #35 tabs 07/18/21 [Rx Last Taken Unknown] aspirin 81 mg tablet,delayed release (Adult Aspirin Regimen) 81 mg PO QODAY 09/25/21 [History Last Taken Unknown] baclofen 10 mg tablet 10 mg PO TID PRN spasticity #90 tabs 02/01/22 [Rx Last Taken Unknown] folic acid 1 mg tablet 1 mg PO DAILY #30 tabs 02/01/22 [Rx Last Taken Unknown] metformin 500 mg tablet 250 mg PO BID 02/01/22 [History Last Taken Unknown] ramipril 2.5 mg capsule 2.5 mg PO DAILY 06/06/22 [History Last Taken Unknown] Allergy/AdvReac Type Severity Reaction Status Date / Time hydrocodone [From Vicodin] Allergy PT UNSURE Verified 06/06/22 11:39 OF REACTION Surgical History H/O hernia repair H/O wisdom tooth extraction Skin tag Social History adopted: No household members: spouse and other details: 1 son who is 16 months old. This is his 2nd marriage. 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 Vodka, Rum, [place]. He likes the taste. substance use type: does not use what type of physical activity do you participate in: additional details: no exercise other than walking around at work. ROS ROS ED Constitutional Constitutional ED: Denies chills Cardiovascular Cardiovascular: Denies chest pain, palpitations or racing heartbeat Respiratory/Chest Respiratory/Chest: Denies cough or dyspnea Gastrointestinal Gastrointestinal: Denies nausea or vomiting Genitourinary Genitourinary ED: Denies dysuria Musculoskeletal Musculoskeletal: Denies arthralgias, back pain or myalgias Integumentary Denies Abrasions or rash Neurologic Neurologic: Reports paresthesias, weakness and other Details: Patient has residual weakness but has not changed acutely. It has been getting progressively better. Sensation is improving overall. Today's symptoms are not increased and tingly sensations. ; Denies headache(s) Endocrine Endocrinology: Denies polydipsia or polyuria Hematologic/Lymphatic Hematologic/Lymphatic: Denies easy bleeding Allergic/Immunologic Allergic/Immunologic ED: Denies urticaria EXAM Physical Exam Narrative Exam Narrative: Patient is awake and alert. He is lying in bed comfortably. He carries on a narrow conversation. HEENT: Does show some left facial weakness but he states this is chronic. No sign of trauma. Neck supple Lungs are clear. Heart sounds regular. Sounds very much to be a normal rhythm. Abdomen is soft and nontender : shows no CVA or suprapubic tenderness Extremities does show some spasticity of mostly the left upper extremity. But he actually has good plate conditioner strength and good lower leg strength. Sensation is still intact. There is no gross deficit. Const Vital Signs: 06/06/22 11:38 06/06/22 13:37 Temperature 96 F L Temperature Source Temporal Pulse Rate 64 78 Respiratory Rate 18 16 Blood Pressure 146/100 H 126/78 H Blood Pressure Mean 115 94 Pulse Ox 100 98 Oxygen Delivery Method Room Air Room Air MDM MDM MDM Narrative Medical decision making narrative: My independent interpretation the patient's CT shows no acute bleeding. Final reading is no acute process but there is sequela of his prior basal ganglia hemorrhage that caused his stroke. CBC shows no marked abnormalities. Electrolytes are normal including sodium potassium chloride and calcium. I talked with the patient again. His symptoms are not increased in sensation and tingling. I do not think this represents an acute stroke. He will continue his current medication. He then talk to me about symptom he has been having on his left foot for some time. He states intermittently during the day his left great toe will pull up toward him. He does have positive Babinski. I explained that this is likely a neurologic reflex. This may not go away. Although he takes baclofen for spasm I am not sure it is going to give him benefit as much to this. He will follow-up with his physician. Lab Data Attestation: I reviewed the patient's lab results. Labs: Laboratory Results - last 24 hr 06/06/22 06/06/22 12:40 12:40 WBC 6.4 RBC 4.45 L Hgb 15.2 Hct 43.3 MCV 97.3 H MCH 34.2 H MCHC 35.1 RDW Std Deviation 43.9 RDW Coeff of [place] 12.1 Plt Count 196 MPV 10.0 Immature Gran % (Auto) 0.300 Neut % (Auto) 60.6 Lymph % (Auto) 27.0 [place] % (Auto) 9.6 Eos % (Auto) 1.7 Baso % (Auto) 0.8 Absolute Neuts (auto) 3.9 Absolute Lymphs (auto) 1.72 Nucleated RBC % 0 Sodium 137 Potassium 3.7 Chloride 101 Carbon Dioxide 29.0 Anion Gap 7 BUN 10 Creatinine 0.94 Est GFR (MDRD) Af Amer 109 Est GFR (MDRD) Non-Af 90 BUN/Creatinine Ratio 10.6 Glucose 114 H Calcium 8.8 Radiography Diagnostic Testing: Clinical Impression(s) from Imaging Studies Brain CT 06/06/22 12:02 IMPRESSION: No acute intracranial findings. Sequela of prior right basal ganglia hemorrhage. Electronically Signed: Chino Boston MD at 13:32 EDT , Discharge Plan Triage Chief Complaint: Numb/Ting ED Provider: Andrew Covarrubias Dx/Rx/DC Orders Clinical Impression: Paresthesia of left leg, History of intracranial hemorrhage Instructions: ED Paraesthesias Prescriptions: No Action aspirin [Adult Aspirin Regimen] 81 mg tablet,delayed release (DR/EC) 81 mg PO QODAY metformin 500 mg tablet 250 mg PO BID baclofen 10 mg tablet 10 mg PO TID PRN (Reason: spasticity) Qty: 90 5RF folic acid 1 mg tablet 1 mg PO DAILY Qty: 30 12RF acetaminophen [Tylenol] 325 mg Tablet 650 mg PO Q6H PRN PRN (Reason: PAIN) Qty: 0 0RF buspirone 5 mg Tablet 5 mg PO BID Qty: 35 0RF Rx Instructions: take 1 tab in the AM and 1 at bed for 2 weeks then 1 tab at bedtime until gone and discontinue atorvastatin 40 mg Tablet 40 mg PO QHS Qty: 30 0RF ramipril 2.5 mg capsule 2.5 mg PO DAILY Primary Care Provider: Viraj Arias Referrals: Viraj Arias MD [Primary Care Provider] - 3-5 Days Disposition Disposition: Home, Self Care
[2022-06-06 12:57] LABS: Absolute Lymphocyte Count 1.72 X10^3/uL (0.83-4.51); Absolute Neutrophil Count 3.9 X10^3/uL (2.0-7.7); Basophil# 0.05 X10^3/uL; Basophil% 0.8 % (0-1); Eosinophil# 0.11 X10^3/uL; Eosinophils% 1.7 % (0-5); Hematocrit 43.3 % (40-54); Hemoglobin 15.2 g/dL (13.0-16.5); Lymphocyte # 1.72 X10^3/ul (0.83-4.51); Mean Corp Hgb Conc 35.1 g/dL (32-36); Mean Corpuscular Hgb 34.2 pg (27.0-32.0); Mean Corpuscular Volume 97.3 fL (80-94); Monocyte# 0.61 X10^3/uL; Monocyte% 9.6 % (0-10); NRBC Flagged by Analyzer 0 % (0-5); Neutrophil # 3.86 X10^3/uL (2.7-7.7); Neutrophil % 60.6 % (47-70); Platelet Count 196 K/mm3 (150-450); RBC Distribution Width CV 12.1 % (11.6-14.6); RBC Distribution Width SD 43.9 fl (35.1-43.9); Red Blood Count 4.45 M/mm3 (4.6-6.2); White Blood Count 6.4 K/mm3 (4.4-11.0)
[2022-06-06 13:12] LABS: Anion Gap 7 (5-15); BUN 10 mg/dL (7-18); BUN/Creat Ratio 10.6 RATIO (10-20); Calcium,Total 8.8 mg/dL (8.5-10.1); Chloride 101 mmol/L (98-107); Creatinine, Serum 0.94 mg/dL (0.70-1.30); EST Glomerular Filtration Rate 90 mL/min (>60); Est Glom Filt Rate - Afr Amer 109 mL/min (>60); Glucose 114 mg/dL (74-106); Potassium 3.7 mmol/L (3.5-5.1); Sodium Level 137 mmol/L (136-145)
[2022-06-06 13:37] VITALS: BP 126/78; PULSE 78; RESP 16; O2SAT 98
[2022-06-06 14:47] VITALS: BP 134/78; PULSE 78; RESP 16; TEMP 36.6; O2SAT 99
== END 2022-06-06 14:48 | disposition home or self-care (01) ==
PROVIDERS: Emergency Provider Emergency Medicine; PCP Family Medicine; Visit Provider Emergency Medicine
DX: R20.2 Paresthesia of skin (principal); Z86.73 Personal history of transient ischemic attack (TIA), and cerebral infarction without residual deficits; Z79.82 Long term (current) use of aspirin; Z79.899 Other long term (current) drug therapy; Z79.84 Long term (current) use of oral hypoglycemic drugs
CPT/HCPCS: 70450; 80048; 85025; 93005; 99282; A4216

== ENCOUNTER 2023-02-28 08:57 | Outpatient (RCR) | payer OTHER, SELFPAY ==
--- NOTE | 2023-03-05 08:38 | HP.PTEVAL_ITS ---
Patient's Visit Information Visit Information Visit Information: TRACY MANRIQUE Jr. is a 47 year old M referred to Physical Therapy by Dr. Viraj Arias MD with a diagnosis of L upper arm contracture. Date of Evaluation: 02/28/23 Physical Therapist: Jayden Patel DPT Visit Plan Frequency: 2x /Week Duration: 4 Weeks Plan: Start with DN to biceps and brachial radialis, triceps strengthening and elbow extension stretching. May look into dynamic bracing to increase tissue elasticity. Subjective Subjective: Pt. is here today for his initial evaluation with diagnosis of L upper arm contracture s/p CVA. Pt. had a CVA 1-2 years ago. He is back to work, but is still dealing with his L elbow tightness. Pt. reports no much pain, but is c/o difficulty with straightening out his arm. Pt. has not tried much stretching, but has done some muscle relaxers with some success. Pt. is sleeping okay. He is having difficulty with some of his daily activities, due to lack of end range extension. Pt. is able to fully bend. 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 No N/T. He has not tried any bracing either. Pt. is hopeful to reduce symptoms in order to increase his ROM and get back to all activities without limitations. Objective Objective: POSTURE: Pt. tends to keep L UE with ~40deg of elbow flexion. Pt. is able to straighten but not fully. PALPATION: Pt. has increased tension at biceps muscle muscle group and brachial radialis. NEURO: Pt. has hyper tone with biceps and triceps DTR on L side. R side normal. MMT: PT. has decreased L director of primary care strength 20# less than R side. 4/5 L shoulder, 4/5 elbow extension 4/5, elbow flexion 4+/5. ROM: L elbow: flexion full motion, extension lacking 25deg actively. lacking 15deg passively with leathery end feel. Balance/Special Test Scores Quick DASH Score: 27.2725 Goals Goal 1:: LTG: Pt. to be I with HEP. Goal Time Frame: 4-6 Weeks Goal 2:: LTG: Pt. to have increased PROM of L elbow to lacking 5 deg of extension. Goal Time Frame: 2-4 Weeks Goal 3:: LTG: Pt. to have increased L elbow AROM to lacking 5 deg of extension allowing for increased ability to complete all ADLs. Goal Time Frame: 4-6 Weeks Goal 4:: LTG: Pt. to be able to complete all work activities without limitations. Goal Time Frame: 4-6 Weeks Rehabilitation Potential Physical Therapy Diagnosis: Pt. has signs and symptoms consistent with L upper arm contracture s/p CVA. Pt. has marked loss of L elbow extension. Pt. has marked tone limiting as well. He would benefit from DN, prolonged stretching and activation of triceps in order to increase ability to complete all ADLs and work activities without limitations. Rehabilitation Potential: Excellent Anticipated Interventions Patient/Client Instruction: Educate patient on: Condition, Plan of Care, Risk Factors and Benefits of Fitness Program For the Purpose of:: To improve health and function, To foster healthy habits, To improve decision making, To facilitate caregiver knowledge, To improve self management, To prevent re-injury and To improve ability to perform tasks related to life management Therapeutic Exercise to Include: Strength training, Power training and Endurance training For the Purpose of:: To increase ROM, To increase oxygenation perfusion, To improve muscle performance and motor function, To improve ability to perform ADL's, To decrease soft tissue restriction and To increase flexibility/ROM Manual Therapy Techniques to Include: Mobilization and Soft tissue mobilization For the Purpose of:: To decrease pain, To increase ROM, To decrease soft tissue restriction and To increase flexibility/ROM Text: Thank you for the opportunity to evaluate your patient. For Medicare and Medicare HMO plans, please review the plan of care and approve it. It will need to be FAXED BACK to us at [phone] for Medicare purposes. For Medicare only, by signing this I certify the plan of care. Please let me know if there are questions or concerns regarding this plan of care. Physician Signature: Date:
--- NOTE | 2023-06-10 09:49 | HP.PT.NRP ---
Patient Information Patient Information: TRACY MANRIQUE Jr. was seen in my office for initial evaluation on 02/28/23. The following Plan of Care was established for this patient: POC Established Initial Frequency: 2x /Week Initial Duration: 4 Weeks Anticipated Interventions Patient/Client Instruction: Educate patient on: Condition, Plan of Care, Risk Factors and Benefits of Fitness Program For the Purpose of:: To improve health and function, To foster healthy habits, To improve decision making, To facilitate caregiver knowledge, To improve self management, To prevent re-injury and To improve ability to perform tasks related to life management Therapeutic Exercise to Include: Strength training, Power training and Endurance training For the Purpose of:: To increase ROM, To increase oxygenation perfusion, To improve muscle performance and motor function, To improve ability to perform ADL's, To decrease soft tissue restriction and To increase flexibility/ROM Manual Therapy Techniques to Include: Mobilization and Soft tissue mobilization For the Purpose of:: To decrease pain, To increase ROM, To decrease soft tissue restriction and To increase flexibility/ROM Last Seen Last Seen: This patient was last seen in our office 02/28/23. Pertinent comments regarding their Physical therapy will appear below: Pt. was seen in PT for his arm stiffness post CVA. Pt. came to his initial evaluation, but has not been to any appt. since. He has not been back to PT in several months and will be DC from PT at this point in time. At this point I will be discontinuing this patient from physical therapy. I would be happy to see this patient again in the future if found appropriate by the physician. Thank you! Jadyen Patel, DPT Balance/Gait/Functional tests Balance/Special Test Scores Quick DASH Score: 27.0714
== END 2023-02-28 19:00 | disposition home or self-care (01) ==
LOC: PT 08:57
PROVIDERS: PCP Family Medicine; Referring Provider Family Medicine; Visit Provider Family Medicine
DX: M62.422 Contracture of muscle, left upper arm (principal); Z86.73 Personal history of transient ischemic attack (TIA), and cerebral infarction without residual deficits
CPT/HCPCS: 97110; 97161

== ENCOUNTER → 2023-11-08 | Outpatient (CLI) | payer OTHER, SELFPAY ==
[2023-11-08 11:05] LABS: ALB/GLOB Ratio 1.2 RATIO (0.9-2.4); AST(SGOT) 17 U/L (15-37); Alanine Aminotransfer ALT/SGPT 23 U/L (16-61); Albumin, Serum 4.1 g/dL (3.2-5.0); Alkaline Phosphatase 65 U/L (45-117); Anion Gap 9 (5-15); BUN 8 mg/dL (7-18); BUN/Creat Ratio 9.1 RATIO (10-20); Calcium,Total 9.7 mg/dL (8.5-10.1); Chloride 103 mmol/L (98-107); Creatinine, Serum 0.88 mg/dL (0.70-1.30); EST Glomerular Filtration Rate 98 mL/min (>60); Est Glom Filt Rate - Afr Amer 118 mL/min (>60); Globulin 3.3 g/dL (2.2-4.2); Glucose 148 mg/dL (74-106); Potassium 3.5 mmol/L (3.5-5.1); Protein, Total 7.4 g/dL (6.4-8.2); Sodium Level 136 mmol/L (136-145)
[2023-11-08 11:52] LABS: Microalbumin,Random Urine 18.8 mg/L (NO RANGE EST.); Microalbumin:Creatinine Ratio 7.5 mg/g CRE (<30 mg/g CRE)
[2023-11-08 11:54] LABS: Hematocrit 46.5 % (40-54); Hemoglobin 16.1 g/dL (13.0-16.5); Mean Corp Hgb Conc 34.6 g/dL (32-36); Mean Corpuscular Hgb 33.1 pg (27.0-32.0); Mean Corpuscular Volume 95.7 fL (80-94); Platelet Count 190 K/mm3 (150-450); RBC Distribution Width SD 45.6 fl (35.1-43.9); Red Blood Count 4.86 M/mm3 (4.6-6.2); White Blood Count 5.5 K/mm3 (4.4-11.0)
[2023-11-08 12:35] LABS: Hemoglobin A1c 5.5 % (3.8-5.6)
== END | disposition home or self-care (01) ==
LOC: MFPLAB 08:52
PROVIDERS: PCP Family Medicine; Visit Provider Family Medicine
DX: E11.9 Type 2 diabetes mellitus without complications (principal); I10 Essential (primary) hypertension
CPT/HCPCS: 36415; 80053; 82043; 82570; 83036; 85027

== ENCOUNTER → 2024-02-06 | Outpatient (CLI) | payer OTHER, SELFPAY | END | disposition home or self-care (01) | LOC: LAB 10:09 | PROVIDERS: PCP Family Medicine; Referring Provider Urology; Visit Provider Urology | DX: Z12.5 Encounter for screening for malignant neoplasm of prostate (principal) | CPT/HCPCS: 36415; 84153; G0103 ==

== ENCOUNTER 2024-02-20 09:30 | Outpatient (RCR) | payer OTHER, SELFPAY ==
--- NOTE | 2024-01-23 16:31 | HP.PTEVAL ---
Patient's Visit Information Visit Information Visit Information: TRACY MANRIQUE Jr. is a 48 year old M referred to Physical Therapy by Dr. Gilberto Wylie MD with a diagnosis of CVA. Date of Evaluation: 01/23/24 Physical Therapist: Donnell Black, PT, ATC Visit Plan Frequency: 2x /Week Duration: 4-6 Weeks Plan: L wrist PROM and mobs, L wrist extension stretches, STM, L elbow stretches and STM Subjective Subjective: CVA: 2020. Pt reports he had a stroke at that time secondary to high blood pressure. Pt notes he has had PT in the past which was helpful. Pt reports his L UE has become contractured at this time, so he received Botox yesterday, and not he is here to gain more ROM in his L UE. Pt denies pain in his L UE as he is mostly numb. Pt reports he has felt better since receiving his injections yesterday. Pt reports he has strength in his L UE, but if he picks up an object and doesn't pay attention to it, he will drop it. Pt is R hand dominant. 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 Pt reports he can perform all of his work duties, but he still has difficulty with walking at this time. Pt feels like he has achieved good success with his LE since his accident, but really hopes to gain movement with his L UE. Pt reports he is mostly I at home, just has to slow down when doing specific activities like using a knife to cut objects. Objective Objective: Neuro: Pt has normal sensation is his R UE. Pt is hyposensitive in L UE throughout. Palpation: Pt has contractures in L wrist flexors, extensors, and biceps/triceps region. Spastic tone in most musculature. ROM: R elbow flex= 140, ext= 0; R wrist flex= 65, ext= 65; L elbow flex= 140, ext= -45; L wrist flex= 65, ext= 12 degrees MMT: R UE is grossly 5/5 throughout; L elbow flex= 2+/5. All other L UE measurements 4+/5 throughout Balance/Special Test Scores Quick DASH Score: 45.4525 Goals Goal 1:: Increase L wrist extension ROM x 20 degrees to aid with IADL's Goal Time Frame: 4-6 Weeks Goal 2:: Increase L elbow extension x 20 degrees to aid with IADL's Goal Time Frame: 4-6 Weeks Goal 3:: I with HEP Goal Time Frame: 4-6 Weeks Rehabilitation Potential Physical Therapy Diagnosis: Pt has limited elbow and wrist ROM secondary to contractures in L UE Rehabilitation Potential: Good Anticipated Interventions Patient/Client Instruction: Educate patient on: Condition and Plan of Care For the Purpose of:: To improve self management Therapeutic Exercise to Include: Strength training, Flexibilty training and Passive ROM For the Purpose of:: To decrease pain and To increase ROM Manual Therapy Techniques to Include: Soft tissue mobilization For the Purpose of:: To decrease pain, To increase ROM and To improve muscle performance and motor function Text: Thank you for the opportunity to evaluate your patient. For Medicare and Medicare HMO plans, please review the plan of care and approve it. It will need to be FAXED BACK to us at [phone] for Medicare purposes. For Medicare only, by signing this I certify the plan of care. Please let me know if there are questions or concerns regarding this plan of care. Physician Signature: Date:
--- NOTE | 2024-04-10 12:43 | HP.PT.NRP ---
Patient Information Patient Information: TRACY MANRIQUE Jr. was seen in my office for initial evaluation on 01/23/24. The following Plan of Care was established for this patient: POC Established Initial Frequency: 2x /Week Initial Duration: 4-6 Weeks Anticipated Interventions Patient/Client Instruction: Educate patient on: Condition and Plan of Care For the Purpose of:: To improve self management Therapeutic Exercise to Include: Strength training, Flexibilty training and Passive ROM For the Purpose of:: To decrease pain and To increase ROM Manual Therapy Techniques to Include: Soft tissue mobilization For the Purpose of:: To decrease pain, To increase ROM and To improve muscle performance and motor function Last Seen Last Seen: This patient was last seen in our office . Pertinent comments regarding their Physical therapy will appear below: Pt has not returned through todays date for 30 days and is discontinued at this time. At this point I will be discontinuing this patient from physical therapy. I would be happy to see this patient again in the future if found appropriate by the physician. Thank you! Donnell Black, PT, ATC Balance/Gait/Functional tests Balance/Special Test Scores Quick DASH Score: [phone]
== END 2024-02-20 19:00 | disposition home or self-care (01) ==
LOC: PT 09:30
PROVIDERS: PCP Family Medicine; Visit Provider Psychiatry & Neurology Neurology
DX: I69.398 Other sequelae of cerebral infarction (principal); R25.2 Cramp and spasm
CPT/HCPCS: 97110; 97140; 97161

== ENCOUNTER 2024-03-16 20:23 | Observation (INO) | payer OTHER, SELFPAY ==
[2024-03-16] VITALS (9 sets, daily range): BP systolic 99–138; BP diastolic 59–89; PULSE 57–70; RESP 15–18; TEMP 36.4; O2SAT 91–95; BMI 28.0; BMI 29.9
--- NOTE | 2024-03-16 20:27 | CT_ITS ---
We are attempting to reach an attending provider to discuss findings. An addendum with communication details will be sent when the communication is complete. EXAM: CT HEAD WITHOUT INTRAVENOUS CONTRAST CLINICAL INDICATION: Neuro deficit, acute, stroke suspected TECHNIQUE: Multiple axial images were obtained of the head without intravenous contrast. This CT exam was performed using one or more of the following dose reduction techniques: automated exposure control, adjustment of the mA and/or kV according to patient size, and/or use of iterative reconstruction technique. This report was created using [employer] report generation technology. COMPARISON: 06/06/2022 FINDINGS: BRAIN AND EXTRA-AXIAL SPACES: Likely chronic lacunar infarcts in the bilateral basal ganglia. Sequela of chronic infarct or perhaps hemorrhage in the right external capsule. There is non-specific periventricular hypoattenuation which is most commonly related to chronic microvascular ischemic disease in a patient of this age. There is no mass, mass-effect, or shift of the midline structures. No evidence of acute infarct or acute intracranial hemorrhage. There is no evidence of pathologic extra-axial fluid. There is no hydrocephalus. Patent basal cisterns. BONES/JOINTS: No significant abnormality. No discrete lytic or blastic abnormalities. VASCULATURE: Arteriosclerosis. SINUSES: No significant findings. MASTOID AIR CELLS: No significant effusion. ORBITS: No acute findings. CT/STROKE Brain/Head without Cont IMPRESSION: Extensive chronic ischemic and perhaps chronic hemorrhagic changes as detailed above. No evidence of acute infarct or hemorrhage. ASPECTS: 10. Electronically Signed: Jimmie Rothman DO at 20:44 EST ,
--- NOTE | 2024-03-16 20:27 | CT_ITS ---
We are attempting to reach an attending provider to discuss findings. An addendum with communication details will be sent when the communication is complete. EXAM: CT ANGIOGRAPHY HEAD AND NECK WITH INTRAVENOUS CONTRAST CLINICAL INDICATION: Neuro deficit, acute, stroke suspected TECHNIQUE: [place] [facility] [place]/head and neck CT angiography protocol performed with intravenous contrast. This CT exam was performed using one or more of the following dose reduction techniques: automated exposure control, adjustment of the mA and/or kV according to patient size, and/or use of iterative reconstruction technique. This report was created using [employer] report generation technology. MIP reconstructed images were created and reviewed. CONTRAST: IV 100mL [id number] COMPARISON: CT head without contrast on the same date FINDINGS: HEAD: RIGHT ANTERIOR CEREBRAL ARTERY: No significant abnormality. No significant stenosis at the visualized segments. Anterior communicating artery is present. No aneurysm. RIGHT MIDDLE CEREBRAL ARTERY: No significant abnormality. No significant stenosis at the visualized segments. No aneurysm. RIGHT POSTERIOR CEREBRAL ARTERY: No significant abnormality. No occlusion or significant stenosis. No aneurysm. LEFT ANTERIOR CEREBRAL ARTERY: No significant abnormality. No significant stenosis at the visualized segments. No aneurysm. LEFT MIDDLE CEREBRAL ARTERY: No significant abnormality. No significant stenosis at the visualized segments. No aneurysm. LEFT POSTERIOR CEREBRAL ARTERY: No significant abnormality. No occlusion or significant stenosis. No aneurysm. BASILAR ARTERY: No significant abnormality. No significant stenosis. No aneurysm. GREAT VESSELS OF AORTIC ARCH: No significant abnormality. Normal anatomy, patent. OTHER VASCULATURE: No vascular malformation. NECK: RIGHT COMMON CAROTID ARTERY: No significant abnormality. No significant stenosis. No dissection or occlusion. RIGHT INTERNAL CAROTID ARTERY: No significant abnormality. No significant stenosis. No dissection or occlusion. RIGHT EXTERNAL CAROTID ARTERY: No significant abnormality. No occlusion. RIGHT VERTEBRAL ARTERY: No significant abnormality. No significant stenosis. No dissection or occlusion. LEFT COMMON CAROTID ARTERY: No significant abnormality. No significant stenosis. No dissection or occlusion. LEFT INTERNAL CAROTID ARTERY: Minimal atherosclerosis of the left carotid bifurcation and carotid bulb with less than 50% stenosis by NASCET criteria. No dissection or occlusion. LEFT EXTERNAL CAROTID ARTERY: No significant abnormality. No occlusion. LEFT VERTEBRAL ARTERY: No significant abnormality. No significant stenosis. No dissection or occlusion. OROPHARYNX: Prosthetic calcifications are likely the result of chronic and/or recurrent tonsillar infection/inflammation. LUNG APICES: Normal as visualized. SOFT TISSUES: No significant abnormality. OTHER FINDINGS: Degenerative changes in the spine. CAROTID STENOSIS REFERENCE USING NASCET CRITERIA: % ICA stenosis = (1 - narrowest ICA diameter/diameter of distal cervical ICA) x 100. Mild - <50% stenosis. Moderate - 50-69% stenosis. Severe - 70-94% stenosis. Near occlusion - 95-99% stenosis. Occluded - 100% stenosis. CT/STROKE CTA Head AND Neck W/Con IMPRESSION: No acute findings in the arteries of the head and neck. Electronically Signed: Jimmie Rothman DO at 20:56 EST ,
--- NOTE | 2024-03-16 20:27 | EKG12_ITS ---
Test Reason : DYSRHYTHMIA Blood Pressure : */* mmHG Vent. Rate : 69 BPM Atrial Rate : 69 BPM P-R Int : 204 ms QRS Dur : 88 ms QT Int : 374 ms P-R-T Axes : 48 19 7 degrees QTcB Int : 400 ms Normal sinus rhythm Normal ECG Confirmed by CLARISSA FERGUSON, TERESE ([id number]), purchasing expeditor SHILPI RAM ([id number]) on 03/17/2024 9:26:55 AM Referred By: Cezar Stone Confirmed By: TERESE ROMO MD
[2024-03-16 20:35] LABS: Absolute Lymphocyte Count 1.53 X10^3/uL (0.83-4.51); Absolute Neutrophil Count 12.8 X10^3/uL (2.0-7.7); Basophil# 0.05 X10^3/uL; Basophil% 0.3 % (0-1); Eosinophil# 0.08 X10^3/uL; Eosinophils% 0.5 % (0-5); Hemoglobin 16.4 g/dL (13.0-16.5); Lymphocyte # 1.53 X10^3/ul (0.83-4.51); Mean Corp Hgb Conc 34.9 g/dL (32-36); Mean Corpuscular Hgb 32.1 pg (27.0-32.0); Mean Platelet Vol. 9.4 fl (6.2-12.0); Monocyte% 4.6 % (0-10); NRBC Flagged by Analyzer 0 % (0-5); Neutrophil # 12.77 X10^3/uL (2.7-7.7); Neutrophil % 83.8 % (47-70); Platelet Count 227 K/mm3 (150-450); RBC Distribution Width CV 12.7 % (11.6-14.6); RBC Distribution Width SD 42.6 fl (35.1-43.9); Red Blood Count 5.11 M/mm3 (4.6-6.2); White Blood Count 15.3 K/mm3 (4.4-11.0)
[2024-03-16 20:53] LABS: Anion Gap 4 (5-15); BUN 15 mg/dL (7-18); BUN/Creat Ratio 16.9 RATIO (10-20); Calcium,Total 9.2 mg/dL (8.5-10.1); Chloride 104 mmol/L (98-107); Creatinine, Serum 0.89 mg/dL (0.70-1.30); EST Glomerular Filtration Rate 96 mL/min (>60); Est Glom Filt Rate - Afr Amer 116 mL/min (>60); Estimated Creatinine Clearance 118.23 ml/min; Glucose 128 mg/dL (74-106); Sodium Level 138 mmol/L (136-145); Troponin-I HS 6 pg/mL (3.0-78.0)
[2024-03-16 21:04] LABS: Prothrombin Time (Protime)PT. 12.9 SECONDS (11.7-14.9)
[2024-03-16 21:05] LABS: Partial Thromboplast Time 22.6 Seconds (24.1-36.2)
--- NOTE | 2024-03-16 21:05 | RAD_ITS ---
EXAM: XR CHEST, 1 VIEW CLINICAL INDICATION: Neuro deficit, acute, stroke suspected TECHNIQUE: Frontal view of the chest. This report was created using [employer] report generation technology. COMPARISON: 06/19/2021 FINDINGS: LUNGS AND PLEURAL SPACES: No significant abnormality. No consolidation or edema. No pneumothorax. No effusion. HEART: No significant abnormality. Cardiac silhouette not enlarged. MEDIASTINUM: Central airways and mediastinal contour are unremarkable. BONES/JOINTS: Degenerative changes in the spine and shoulders. SOFT TISSUES: No significant abnormality. RAD/Chest 1 View IMPRESSION: No acute findings in the chest. Electronically Signed: Jimmie Rothman DO at 21:29 EST ,
--- NOTE | 2024-03-16 21:05 | RAD_ITS ---
EXAM: XR LEFT ELBOW, 2 VIEWS CLINICAL INDICATION: pain, trauma TECHNIQUE: Frontal and lateral views of the left elbow. This report was created using [employer] report generation technology. COMPARISON: None. FINDINGS: BONES/JOINTS: Spurring of the coronoid process. There is no displacement of the anterior or posterior fat pads. No acute fracture. No subluxation. Normal alignment. Preservation of the joint space. No destructive or sclerotic lesions. SOFT TISSUES: Periolecranon soft tissue swelling. No radiopaque foreign body. RAD/Elbow 2 Views IMPRESSION: Periolecranon soft tissue swelling. No acute osseous abnormalities. Correlate clinically for evidence of olecranon bursitis or hematoma. Electronically Signed: Jimmie Rothman DO at 21:29 EST ,
--- NOTE | 2024-03-16 22:28 | ED.VIS.STROK ---
HPI History of Present Illness Chief Complaint: Stroke Alert Narrative Narrative: 48-year-old male past medical history of previous stroke 3 years ago with left-sided residual deficit presents via EMS as a prehospital stroke team. His was concerned that his left-sided deficits were increasing. Patient states that he has contracture and weakness of his left upper extremity. Per EMS, he was able to drive to work at home from work today. It was around 2:00 when she thought that he was too weak to stand and that maybe his left lower extremity was weaker than it normally is. He states he has baseline deficits of left-sided facial droop that has not changed and weakness of his left upper extremity with contracture. He states he did not fall. [facility] Medical History Hemiplegia following CVA (cerebrovascular accident) Contracture of muscle, left upper arm Patent foramen ovale Spasticity due to old stroke Left shoulder pain Hypertension Cerebrovascular accident (CVA) Dysarthria Physical debility Left homonymous inferior quadrantanopia Overweight (BMI 25.0-29.9) Cognitive dysfunction due to acute cerebrovascular accident (CVA) Left-sided neglect Facial droop Left hemiparesis Anxiety Essential (primary) hypertension Diabetes mellitus, type 2 EtOH dependence Dyslipidemia Hemorrhagic stroke Home Medications ?Medication ?Instructions ?Recorded ?Last Taken ?Type acetaminophen 325 mg tablet 650 mg (2 x 325 mg) PO Q6H PRN PRN 07/18/21 Unknown Rx (Tylenol) PAIN #0 tabs aspirin 81 mg tablet,delayed 81 mg PO QODAY 09/25/21 Unknown History release (Adult Aspirin Regimen) atenolol 25 mg tablet 25 mg PO BID 03/01/23 Unknown History buspirone 5 mg tablet 5 mg PO BID PRN anxiety 03/01/23 Unknown History sertraline 100 mg tablet 100 mg PO DAILY 03/01/23 Unknown History ramipril 10 mg capsule 10 mg PO DAILY #90 caps 03/26/23 Unknown Rx methocarbamol 750 mg tablet See Rx Instructions .Route 12/26/23 Unknown Rx .COMPLEX #180 tabs atorvastatin 40 mg tablet 40 mg PO QHS cholesterol #30 tabs 03/10/24 Unknown Rx diazepam 5 mg tablet 5 mg PO QDAY PRN muscle spasm #2 03/10/24 Unknown Rx tabs folic acid 1 mg tablet 1 mg PO DAILY #30 tabs 03/10/24 Unknown Rx onabotulinumtoxinA 200 unit 400 unit IM ONCE #2 ea 03/10/24 Unknown Rx solution for injection (Botox) naltrexone 50 mg tablet 50 mg PO DAILY 03/16/24 Unknown History Allergy/AdvReac Type Severity Reaction Status Date / Time hydrocodone (From Vicodin) Allergy Severe Nausea Verified 03/16/24 20:43 Family History Grandmother Diabetes Surgical History H/O wisdom tooth extraction H/O hernia repair Skin tag Social History adopted: No household members: spouse and other details: 1 son who is 16 months old. This is his 2nd marriage. 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 Vodka, Rum, Traill. He likes the taste. substance use type: does not use caffeine: No what type of physical activity do you participate in: additional details: no exercise other than walking around at work. ROS ROS ED ROS Narrative Review of systems positive for left elbow pain and swelling. Patient denies falling or hitting his head. He states he feels that his baseline, but his was concerned because he was too weak to stand. EXAM Physical Exam Narrative Exam Narrative: Afebrile. Vital signs noted. Nontoxic-appearing. Cardiovascular examination feels a regular rate and rhythm. Lungs are clear to auscultation bilaterally. Abdomen is soft and nontender with positive bowel sounds. Neurological examination does show left-sided facial droop and left upper extremity spasticity with mild weakness for an NIH stroke scale of 3. No score for left lower extremity as he is able to lift it off the cot on initial examination and hold it there. Const Vital Signs: 03/16/24 20:23 03/16/24 20:27 03/16/24 20:27 Temperature Temperature Source Pulse Rate 70 61 Respiratory Rate 18 18 Blood Pressure 116/74 114/70 Blood Pressure Mean 88 84 Pulse Ox 93 92 Oxygen Delivery Method Room Air Room Air Room Air 03/16/24 20:29 03/16/24 20:46 03/16/24 20:57 Temperature 97.5 F L 97.6 F L Temperature Source Temporal Axillary Pulse Rate 70 65 63 Respiratory Rate 16 17 18 Blood Pressure 138/89 H 114/70 Blood Pressure Mean 105 84 Pulse Ox 95 93 93 Oxygen Delivery Method Room Air Room Air Room Air 03/16/24 21:04 03/16/24 21:23 03/16/24 22:00 Temperature 97.6 F L Temperature Source Pulse Rate 63 60 60 Respiratory Rate 18 16 17 Blood Pressure 106/59 L 99/84 H 99/84 H Blood Pressure Mean 74 89 89 Pulse Ox 91 92 91 Oxygen Delivery Method Room Air Room Air MDM MDM MDM Narrative Medical decision making narrative: Prehospital stroke team was called initially given his history of the possibility of stroke extension. NIH stroke scale is 3 mainly for the facial droop and left upper extremity weakness. There was no evidence of concern for LVO. Additionally, he is outside the window for TNK as he arrived approximately 6 hours after possibly having onset at 2 PM. It may have been prior to that. Stroke pain workup was pursued. I reviewed his WBC count and it is elevated 15.3 which I think is nonspecific, hemoglobin 16.4, hematocrit 47.0, platelet count 227. Coagulation studies are negative with an INR of 1.0 and PTT 22.6. BUN 15 and creatinine 0.89. High-sensitivity troponin is 6. EKG obtained and interpreted by myself independently as normal sinus rhythm at 69 bpm without ectopy or acute ST changes. X-rays of the elbow obtained and interpreted by myself independently and there is no evidence of fracture. There is mild soft tissue swelling. I reviewed the radiology report which confirms my independent interpretation. Chest x-ray obtained and interpreted by myself as well which shows no evidence of an acute process, no pneumonia or pneumothorax. I also reviewed the radiology report which confirms my independent interpretation. I received a call from the radiologist regarding the CT and the CTA of the head and neck. There are the old strokes noted but no evidence of acute hemorrhage. No evidence of LVO on the CTA of the head and neck or acute occlusion. Additionally, I discussed the patient with the teleneurologist who says that given his NIH stroke scale of 3 as well, the TNK is not indicated as he is at his baseline and there are no new deficits. However, he suggested the patient be observed for MRI of the brain to look for any stroke extension. Patient had also told the neurologist that he did have an alcoholic beverage this evening which he thought may have affected the patient's examination as well. Patient does take aspirin but not Plavix. Patient will be discussed with the hospitalist for observation on the PCU. He is in stable condition. History & Record Review Discussion w/independent historian: Patient and Family Lab Data Attestation: I reviewed the patient's lab results. Labs: Laboratory Results - last 24 hr 03/16/24 20:20 WBC 15.3 H RBC 5.11 Hgb 16.4 Hct 47.0 MCV 92.0 MCH 32.1 H MCHC 34.9 RDW Std Deviation 42.6 RDW Coeff of Parrish 12.7 Plt Count 227 MPV 9.4 Immature Gran % (Auto) 0.800 Neut % (Auto) 83.8 H Lymph % (Auto) 10.0 L Avery % (Auto) 4.6 Eos % (Auto) 0.5 Baso % (Auto) 0.3 Absolute Neuts (auto) 12.8 H Absolute Lymphs (auto) 1.53 Nucleated RBC % 0 PT 12.9 INR 1.0 APTT 22.6 L Sodium 138 Potassium 4.0 Chloride 104 Carbon Dioxide 29.0 Anion Gap 4 L BUN 15 Creatinine 0.89 Estim Creat Clear Calc 118.23 Est GFR (MDRD) Af Amer 116 Est GFR (MDRD) Non-Af 96 BUN/Creatinine Ratio 16.9 Glucose 128 H Calcium 9.2 Troponin I High Sens 6 Radiography Diagnostic Testing: Clinical Impression(s) from Imaging Studies Brain CT 03/16/24 20:27 IMPRESSION: Extensive chronic ischemic and perhaps chronic hemorrhagic changes as detailed above. No evidence of acute infarct or hemorrhage. ASPECTS: 10. Electronically Signed: Jimmie Rothman DO at 20:44 EST , ADDENDUM: 03/16/24 [id number] IMPRESSION: Extensive chronic ischemic and perhaps chronic hemorrhagic changes as detailed above. No evidence of acute infarct or hemorrhage. ASPECTS: 10. N.B. : The above Results were Read Back by Jimmie Rothman DO to Yvan Rivas MD, and understanding confirmed on 03/16/2024 20:58:01 (ET). Electronically Signed: Jimmie Rothman DO at 20:44 EST , Head/Neck CTA 03/16/24 20:27 IMPRESSION: No acute findings in the arteries of the head and neck. Electronically Signed: Jimmie Rothman DO at 20:56 EST , ADDENDUM: 03/16/242103 IMPRESSION: No acute findings in the arteries of the head and neck. N.B. : The above Results were Read Back by Jimmie Rothman DO to Yvan Rivas MD, and understanding confirmed on 03/16/2024 20:57:56 (ET). Electronically Signed: Jimmie Rothman DO at 20:56 EST , ADDENDUM: 03/16/242107 IMPRESSION: No acute findings in the arteries of the head and neck. N.B. : The above Results were Read Back by Jimmie Rothman DO to Yvan Rivas MD, and understanding confirmed on 03/16/2024 21:01:31 (ET). Electronically Signed: Jimmie Rothman DO at 20:56 EST , Chest X-Ray 03/16/24 21:05 IMPRESSION: No acute findings in the chest. Electronically Signed: Jimmie Cortney Rothman DO at 21:29 EST , Elbow X-Ray 03/16/24 21:05 IMPRESSION: Periolecranon soft tissue swelling. No acute osseous abnormalities. Correlate clinically for evidence of olecranon bursitis or hematoma. Electronically Signed: Jimmie Rothman DO at 21:29 EST , Discharge Plan Dx/Rx/DC Orders Clinical Impression: Spasticity due to old stroke, Essential (primary) hypertension, Left leg weakness, Pain and swelling of left elbow Disposition Disposition: Acute Care Hospital [facility]
--- NOTE | 2024-03-16 23:00 | PCM.HP.STD ---
[facility] - General General Date of Admission: 03/16/24 Date of Service: 03/16/24 Chief Complaint: Stroke Alert with suspected Worsening Left-sided Weakness and Left Elbow Pain. 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 presumably due to uncontrolled hypertension (06/2021); with subsequent Left hemiparesis on BASA, contracture of Left upper extremity with chronic Left shoulder pain; on Botox, dysarthria and physical debility, history of Left homonymous inferior quadrantanopia, history of PFO, history of alcohol dependence; with patient admitting to drinking only 1 drink daily, depression with anxiety; on sertraline, buspirone and prn diazepam, history of muscle spasms; on prn methocarbamol, history of hernia; s/p repair and chronic physical debility who presents to [facility] ER complaining of suspected worsening Left-sided weakness. 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 Per EMS, he was able to drive to work and back home today with a baseline left-sided facial droop and LUE contracture that has not changed from previous. He denies recent fall but he does admit to increased Left elbow pain and swelling. He also admits to having 1 alcoholic drink earlier today but he denies chronic alcohol abuse or history of withdrawal but he does admit to having a bad day. There was no report of fever, chills, nausea, vomiting, diarrhea, constipation, abdominal pain, chest pain, SOB or headache but he does admit to incidentally noticing increasing swelling of his Left elbow with no recent memory of trauma but with patient claiming he has decreased sensation in his Left arm so he is not completely sure. He denies illicit drug use. In the ER he was noted to have a strong smell of alcohol with an NIH stroke scale of 3 with a CTA of the head and neck noting old strokes but no evidence of acute hemorrhage or LVO along with [facility] teleneurologist recommending MRI to rule out any possible extension of stroke along with suspicion his recent alcohol use may have triggered his worsening neurologic symptoms with confirmatory elevated SAILAJA of 150 mg/dL present on admission along with Leukocytosis of 15.3 K present on admission with Left elbow swelling consistent with suspected Olecranon Bursitis; with possible evolving infection. Patient was not initially honest about his recent alcohol use - likely due at least in part to the presence of his at the bedside who was unpleasantly surprised to learn of his recent alcohol use. He was then admitted to the PCU under observation status for ongoing care for status expected to be less than 2 midnights. [facility], [facility] Medical History Hemiplegia following CVA (cerebrovascular accident) Contracture of muscle, left upper arm Patent foramen ovale Spasticity due to old stroke Left shoulder pain Hypertension Cerebrovascular accident (CVA) Dysarthria Physical debility Left homonymous inferior quadrantanopia Overweight (BMI 25.0-29.9) Cognitive dysfunction due to acute cerebrovascular accident (CVA) Left-sided neglect Facial droop Left hemiparesis Anxiety Essential (primary) hypertension Diabetes mellitus, type 2 EtOH dependence Dyslipidemia Hemorrhagic stroke Home Medications ?Medication ?Instructions ?Recorded ?Last Taken ?Type acetaminophen 325 mg tablet 650 mg (2 x 325 mg) PO Q6H PRN PRN 07/18/21 Unknown Rx (Tylenol) PAIN #0 tabs aspirin 81 mg tablet,delayed 81 mg PO QODAY 09/25/21 Unknown History release (Adult Aspirin Regimen) atenolol 25 mg tablet 25 mg PO BID 03/01/23 Unknown History buspirone 5 mg tablet 5 mg PO BID PRN anxiety 03/01/23 Unknown History sertraline 100 mg tablet 100 mg PO DAILY 03/01/23 Unknown History ramipril 10 mg capsule 10 mg PO DAILY #90 caps 03/26/23 Unknown Rx methocarbamol 750 mg tablet See Rx Instructions .Route 12/26/23 Unknown Rx .COMPLEX #180 tabs atorvastatin 40 mg tablet 40 mg PO QHS cholesterol #30 tabs 03/10/24 Unknown Rx diazepam 5 mg tablet 5 mg PO QDAY PRN muscle spasm #2 03/10/24 Unknown Rx tabs folic acid 1 mg tablet 1 mg PO DAILY #30 tabs 03/10/24 Unknown Rx onabotulinumtoxinA 200 unit 400 unit IM ONCE #2 ea 03/10/24 Unknown Rx solution for injection (Botox) naltrexone 50 mg tablet 50 mg PO DAILY 03/16/24 Unknown History Allergy/AdvReac Type Severity Reaction Status Date / Time hydrocodone (From Vicodin) Allergy Severe Nausea Verified 03/16/24 20:43 Family History Grandmother Diabetes Surgical History H/O wisdom tooth extraction H/O hernia repair Skin tag Social History adopted: No household members: spouse and other details: 1 son who is 16 months old. This is his 2nd marriage. 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 Vodka, Rum, [place]. He likes the taste. substance use type: does not use caffeine: No what type of physical activity do you participate in: additional details: no exercise other than walking around at work. ROS ROS Narrative Review of Systems: Constitutional: Patient denies fever or chills. Eyes: Patient denies changes in vision or discharge from eyes. ENT: Patient denies runny nose, sore throat or ear pain. Resp: Patient denies shortness of breath or cough. GI: Patient denies nausea, vomiting, diarrhea, constipation or abdominal pain. : Patient denies dysuria or hematuria. MSK: Patient admits to acute Left elbow swelling and chronic Left shoulder pain as per HPI. Skin: Patient denies rash, abscess or jaundice. Psych: Patient denies symptoms of uncontrolled depression or anxiety. Neuro: Patient admits to worsening Left-sided weakness and difficulty standing up causing his to activate EMS for suspected CVA as per HPI. Allergy: Patient denies lip swelling, tongue swelling or urticaria. Hematology: Patient denies easy bleeding or easy bruisability. Endocrinology: Patient denies polyuria, polydipsia or polyphagia. 14 point review of systems otherwise negative save for positives noted above in HPI. Vital Signs Vital Signs Vital Signs: 03/16/24 20:23 03/16/24 20:27 03/16/24 20:27 Temperature Temperature Source Pulse Rate 70 61 Respiratory Rate 18 18 Blood Pressure 116/74 114/70 Blood Pressure Mean 88 84 Pulse Ox 93 92 Oxygen Delivery Method Room Air Room Air Room Air 03/16/24 20:29 03/16/24 20:46 03/16/24 20:57 Temperature 97.5 F L 97.6 F L Temperature Source Temporal Axillary Pulse Rate 70 65 63 Respiratory Rate 16 17 18 Blood Pressure 138/89 H 114/70 Blood Pressure Mean 105 84 Pulse Ox 95 93 93 Oxygen Delivery Method Room Air Room Air Room Air 03/16/24 21:04 03/16/24 21:23 03/16/24 22:00 Temperature 97.6 F L Temperature Source Pulse Rate 63 60 60 Respiratory Rate 18 16 17 Blood Pressure 106/59 L 99/84 H 99/84 H Blood Pressure Mean 74 89 89 Pulse Ox 91 92 91 Oxygen Delivery Method Room Air Room Air Weight Weight: 214 lb 15.211 oz Body Mass Index (BMI) 29.9 Physical Exam Const alert, oriented x3, no apparent distress and average body habitus Constitutional Narrative: Patient smells of alcohol. General Appearance: cooperative HEENT normocephalic, head/scalp atraumatic, hearing grossly normal bilaterally and moist oral mucous membranes Eyes PERRL and EOMs intact bilaterally Neck no lymphadenopathy and supple Resp normal respiratory effort, no retractions, no use of accessory muscles and clear to auscultation bilaterally Cardio regular rate and regular rhythm GI normal to inspection, nondistended, normoactive bowel sounds, soft to palpation, non-tender and non-distended GI Narrative: Obese. Extremity Extremity Narrative: Patient has chronic LUE fracture. Skin Skin Narrative: Patient has soft tissue swelling of the Left elbow with scabbing and evidence of recent abrasion with surrounding erythema but without TTP. Neuro oriented x3 and CN's II-XII intact bilaterally Neuro Narrative: Patient has a chronic LUE contracture and Left-sided facial droop that are unchanged from previous. Sensorium / Orientation: awake, alert, oriented to person, oriented to place and oriented to time Speech: speech normal Psych Mood & Affect: depressed Results Medical Records Data Attestation: I reviewed the patient's medical records Lab / Micro Data Attestation: I reviewed the patient's lab results. 03/16/24 20:20 03/16/24 20:20 Labs: Laboratory Results - last 24 hr 03/16/24 20:20: WBC 15.3 H, RBC 5.11, Hgb 16.4, Hct 47.0, MCV 92.0, MCH 32.1 H, MCHC 34.9, RDW Std Deviation 42.6, RDW Coeff of Parrish 12.7, Plt Count 227, MPV 9.4, Immature Gran % (Auto) 0.800, Neut % (Auto) 83.8 H, Lymph % (Auto) 10.0 L, Baker % (Auto) 4.6, Eos % (Auto) 0.5, Baso % (Auto) 0.3, Absolute Neuts (auto) 12.8 H, Absolute Lymphs (auto) 1.53, Nucleated RBC % 0, PT 12.9, INR 1.0, APTT 22.6 L, Sodium 138, Potassium 4.0, Chloride 104, Carbon Dioxide 29.0, Anion Gap 4 L, BUN 15, Creatinine 0.89, Estim Creat Clear Calc 118.23, Est GFR (MDRD) Af Amer 116, Est GFR (MDRD) Non-Af 96, BUN/Creatinine Ratio 16.9, Glucose 128 H, Calcium 9.2, Troponin I High Sens 6 Imaging Radiology Impression Brain CT 03/16/24 20:27 IMPRESSION: Extensive chronic ischemic and perhaps chronic hemorrhagic changes as detailed above. No evidence of acute infarct or hemorrhage. ASPECTS: 10. Electronically Signed: Jimmie Rothman DO at 20:44 EST , ADDENDUM: 03/16/242103 IMPRESSION: Extensive chronic ischemic and perhaps chronic hemorrhagic changes as detailed above. No evidence of acute infarct or hemorrhage. ASPECTS: 10. N.B. : The above Results were Read Back by Jimmie Rothman DO to Yvan Rivas MD, and understanding confirmed on 03/16/2024 20:58:01 (ET). Electronically Signed: Jimmie Booneleia at 20:44 EST , Head/Neck CTA 03/16/24 20:27 IMPRESSION: No acute findings in the arteries of the head and neck. Electronically Signed: Jimmie Barr DO Stephan at 20:56 EST , ADDENDUM: 03/16/242103 IMPRESSION: No acute findings in the arteries of the head and neck. N.B. : The above Results were Read Back by Jimmie Rothman DO to Yvan Rivas MD, and understanding confirmed on 03/16/2024 20:57:56 (ET). Electronically Signed: Jimmie StockBelén Rothman DO at 20:56 EST , ADDENDUM: 03/16/242107 IMPRESSION: No acute findings in the arteries of the head and neck. N.B. : The above Results were Read Back by Jimmie Rothman DO to Yvan Rivas MD, and understanding confirmed on 03/16/2024 21:01:31 (ET). Electronically Signed: Jimmie StockBelén Rothman DO at 20:56 EST , Chest X-Ray 03/16/24 21:05 IMPRESSION: No acute findings in the chest. Electronically Signed: Jimmie Cortney Rothman DO at 21:29 EST , Elbow X-Ray 03/16/24 21:05 IMPRESSION: Periolecranon soft tissue swelling. No acute osseous abnormalities. Correlate clinically for evidence of olecranon bursitis or hematoma. Electronically Signed: Jimmie Rothman, at 21:29 EST , Assessment & Plan Assessment/Plan (1) Left-sided weakness: (2) Alcohol intoxication: QUALIFIERS: Complication of substance-induced condition: with unspecified complication Qualified Code(s): F10.929 - Alcohol use, unspecified with intoxication, unspecified (3) Alcohol abuse: (4) Hemorrhagic stroke: (5) Spasticity due to old stroke: (6) Cognitive dysfunction due to acute cerebrovascular accident (CVA): (7) Swelling of left elbow: (8) Leukocytosis: QUALIFIERS: Leukocytosis type: unspecified Qualified Code(s): D72.829 - Elevated white blood cell count, unspecified (9) Essential (primary) hypertension: (10) Patent foramen ovale: (11) Obesity (BMI 30.0-34.9): PLAN: Plan 1. 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 Check MRI of the brain as per [facility] teleneurology recommendations. Check echocardiogram with history of PFO. Continue BASA as previous and check Lipid Profile with patient currently not on statin. Finally, we will check B12, folate, TSH and UDS to evaluate for other potential causes or contributions to his apparent decline in neurologic function. 2. Acute EtOH intoxication with SAILAJA of 150 mg/dL present on admission in the setting of suspected Chronic Surreptitious EtOH abuse likely causing #1 with intoxication mimicking stroke symptoms - Start phenobarbital taper to prevent potential EtOH withdrawal. Hold as needed diazepam while on phenobarbital taper. EtOH Cessation will be strongly encouraged. 3. Left elbow swelling with Leukocytosis of 15.3 K present on admission with suspected Olecranon Bursitis; with possible secondary infection compounding #1 & #2 - Start empiric IV vancomycin and IV Zosyn and await culture and sensitivity data. Check ESR and C-RP. Check UA C&S. Check CT scan of the Left elbow to confirm suspicion. Finally, we will consult orthopedist on-call to see this patient on-rounds in the AM for further recommendations regarding drainage with help appreciated in advance. 4. Essential hypertension; on ramipril and atenolol - Hold scheduled antihypertensives until MRI definitively negative for CVA to allow for 'permissive hypertension'. 5. Hyperlipidemia; previously on atorvastatin - Check Lipid Profile this admission. 6. Obesity; with BMI of 30 this admission - Weight loss will be recommended. Check TSH. This complicates his case and may hamper recovery. 7. DM-2; of unknown control currently untreated - Check HgbA1c to confirm status. 8. History of PFO - Echocardiogram pending for #1. 9. Depression with anxiety; on sertraline, buspirone and diazepam - Continue home regimen except hold prn diazepam while on phenobarbital taper. 10. History of muscle spasms; on prn methocarbamol - Maintain current regimen with chronic spasticity of LUE. 11. History of hernia; s/p repair - Noted. 12. Chronic physical debility - Noted. PT/OT and Case management to consult and treat on-rounds in the AM for further recommendations with help appreciated in advance. 13. DVT prophylaxis - SCD's only with previous hemorrhagic CVA and with likely impending drainage of olecranon bursitis of the Left elbow. Total time: Approximately (but not less than) 85 minutes. Charges/Coding Visit Charges OBSV E&M: 80315 Observ/hosp same date L3
--- NOTE | 2024-03-16 23:23 | ED.RN ---
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 [facility] neurologist asked pt same question during virtual assessment and pt denied any alcohol consumption. Spouse was unaware of pt having any alcohol today and stated that pt has not drank in 60 days. Hospitalist notified.
--- NOTE | 2024-03-16 23:30 | ECHOD_ITS ---
Reason For Study: TIA/CVA Procedure This was a 2D Doppler, Color Flow transthoracic echocardiogram. The study was technically difficult. Exam performed portable in ICU/CCU. Left Ventricle Normal LV size. Left ventricular systolic function is normal. The left ventricular ejection fraction is 70 %. No regional wall motion abnormalities noted. Right Ventricle Normal RV size. Normal systolic function. Atria Normal left atrium. Normal right atrium. Mitral Valve Normal mitral valve. Tricuspid Valve Normal tricuspid valve. Aortic Valve Trisinus/trileaflet aortic valve. Pulmonic Valve Normal pulmonic valve. Great Vessels Normal aortic root. The pulmonary artery is normal size. Inferior vena cava collapse with respiration. Pericardium/Pleural No pericardial effusion. MMode/2D Measurements & Calculations LVIDd: 4.3 cm IVSd: 1.3 cm LVOT diam: 2.0 cm LVIDs: 2.1 cm LVPWd: 1.0 cm LVOT area: 3.2 cm2 RVDd: 3.5 cm FS: 50.5 % asc Aorta Diam: 4.0 cm LAV(MOD-bp): 45.5 ml LVAd ap4: 22.5 cm2 LAV(MOD-bp) Indexed: 21.6 ml/m2 LVLd ap4: 7.9 cm LAV(MOD-sp2): 57.4 ml EDV(MOD-sp4): 51.9 ml LAV(MOD-sp4): 36.6 ml EDV(sp4-el): 54.3 ml LVAs ap4: 10.9 cm2 LVLs ap4: 6.1 cm ESV(MOD-sp4): 16.3 ml ESV(sp4-el): 16.5 ml EF(MOD-sp4): 68.7 % EF(sp4-el): 69.7 % LVAd ap2: 22.1 cm2 SV(MOD-sp4): 35.6 ml SV(MOD-sp2): 34.1 ml LVLd ap2: 7.9 cm SI(MOD-sp4): 16.9 ml/m2 SI(MOD-sp2): 16.2 ml/m2 EDV(MOD-sp2): 51.5 ml EDV(sp2-el): 52.3 ml LVAs ap2: 11.2 cm2 LVLs ap2: 6.1 cm ESV(MOD-sp2): 17.4 ml ESV(sp2-el): 17.4 ml EF(MOD-sp2): 66.2 % SV(sp4-el): 37.8 ml Ao sinus diam: 3.[address] Junction: 3.1 cm LA dimension(2D): 3.9 cm LA A4 area: 16.0 cm2 RA A4 area: 11.5 cm2 TAPSE: 2.3 cm Time Measurements MV dec time: 0.30 sec Doppler Measurements & Calculations MV E max viktor: 63.0 cm/sec Lat Peak E' Viktor: 11.0 cm/sec Med Peak E' Viktor: 8.6 cm/sec MV A max viktor: 61.3 cm/sec E/E' lat: 5.7 E/E' med: 7.3 MV E/A: 1.0 MV dec slope: 211.8 cm/sec2 Ao V2 max: 154.7 cm/sec LV V1 max: 141.8 cm/sec Ao max P.6 mmHg LV V1 max P.0 mmHg Ao V2 mean: 94.9 cm/sec LV V1 mean P.2 mmHg Ao mean P.2 mmHg LV V1 mean: 96.4 cm/sec Ao V2 VTI: 32.2 cm LV V1 VTI: 28.9 cm AV (velocity ratio): 0.90 CARYN(I,D): 2.9 cm2 CARYN(V,D): 2.9 cm2 SV(LVOT): 92.6 ml PA V2 max: 97.3 cm/sec ECHO/Echo Complete Interpretation Summary Normal LV size. Left ventricular systolic function is normal. The left ventricular ejection fraction is 70 %. Structurally normal valves. Ordering Physician: Cezar Stone Referring Physician: Viraj Arias MD Performed By: Kassy Zamora RDCS
[2024-03-17] VITALS (8 sets, daily range): BP systolic 93–127; BP diastolic 62–95; PULSE 61–70; RESP 15–17; TEMP 35.6–36.8; O2SAT 94–100; BMI 28.0
[2024-03-17 00:22] LABS: Hemoglobin A1c 5.9 % (3.8-5.6)
[2024-03-17] MEDS: Phenobarbital 32.4 MG Tablet 64.8 MG PO ×6 (00:52→21:11)
[2024-03-17] MEDS: Vancomycin HCl 1,250 MG in 0.9% Normal Saline (250mL Bag) 250 ML 167 MG IV (01:40)
[2024-03-17 02:14] LABS: Vitamin B12 360 pg/mL (211-911)
--- NOTE | 2024-03-17 03:04 | PCM.RX.CS ---
Consult Antibiotic Management Pharmacy has been consulted to manage selected antibiotic: Vancomycin Type of Intervention Type of Consult: New start Labs Labs: Sodium 138 mmol/L (136-145) 03/16/24 20:20 Potassium 4.0 mmol/L (3.5-5.1) 03/16/24 20:20 Chloride 104 mmol/L (98-107) 03/16/24 20:20 Carbon Dioxide 29.0 mmol/L (21.0-32.0) 03/16/24 20:20 Anion Gap 4 (5-15) L 03/16/24 20:20 BUN 15 mg/dL (7-18) 03/16/24 20:20 Creatinine 0.89 mg/dL (0.70-1.30) 03/16/24 20:20 Est GFR (MDRD) Af Amer 116 mL/min (>60) 03/16/24 20:20 Est GFR (MDRD) Non-Af 96 mL/min (>60) 03/16/24 20:20 BUN/Creatinine Ratio 16.9 RATIO (10-20) 03/16/24 20:20 Glucose 128 mg/dL (74-106) H 03/16/24 20:20 Dosing Weight Weight used for dosin.1 kg Estimated Creatinine Clearance Estimated Creatinine Clearance: 118.23 Goal Trough Goal Trough: 10-15 mcg/mL Pharmacy Plan for Drug Dosing Pharmacy Plan for Drug Dosing: Pharmacy Service will continue to monitor and adjust dosing as required. INITIAL DOSE 1250MG 03/17 @ 0140. START 1500MG Q12H AND DRAW TROUGH PRIOR TO 4TH DOSE Follow-Up Labs Follow-Up Labs: Trough: Vancomycin Date/Time Labs Ordered Labs to be done on [date and time ordered]: 03/18 @ 1300
--- NOTE | 2024-03-17 04:56 | CT_ITS ---
EXAM: CT Elbow W/O Contrast Injection LEFT HISTORY: fall at home TECHNIQUE: Axial images obtained through the elbow without IV contrast. Sagittal and coronal reformats were provided. IV Contrast: None.. RADIATION DOSAGE (If Supplied By Facility): CTDIvol = ( 37.35 ) mGy, DLP = ( 1001.15 ) mGycm Individualized dose optimization techniques were used for this CT. COMPARISON: X-rays left elbow 03/16/2024. LIMITATIONS: Suboptimal positioning and imaging planes. Scan was obtained with the arm along the side down on the abdomen with resulting image degradation. FINDINGS: No definite fracture demonstrated. Suboptimal assessment of the radial head with significant streak artifact through the region. No dislocation. Soft tissue swelling dorsally overlying the olecranon with a relatively localized superficial low-attenuation collection that measures approximately 3.5 x 1.2 cm. No evidence of joint effusion. CT/Extremity Upper without Contra IMPRESSION: Soft tissue swelling with localized collection over the olecranon, hematoma and/or other such as bursitis. No evidence of fracture. Electronically Signed: Helene Thomas MD at 6:12 EST ,
[2024-03-17] MEDS: Methocarbamol 750 MG Tablet PO ×3 (05:44→21:11)
[2024-03-17] MEDS: Piperacil/Tazobactam 3.375 GM in 0.9% Normal Saline (50mL MB+) 50 ML IV ×3 (05:44→21:14)
[2024-03-17 07:43] LABS: Amphetamine Urine NEGATIVE (<1000 ng/mL); Barbiturate Urine VISTA NEGATIVE (< 200 ng/mL); Benzodiazepine Urine VISTA NEGATIVE (< 200 ng/mL); Cocaine Urine VISTA NEGATIVE (< 300 ng/mL); Ecstacy Urine VISTA NEGATIVE (< 500 ng/mL); Methadone Urine VISTA NEGATIVE (< 300 ng/mL); PCP Urine VISTA NEGATIVE (< 25 ng/mL); THC Urine VISTA POSITIVE (< 50 ng/mL); Vista UDS pH Range 4
[2024-03-17 07:49] LABS: Erythrocyte Sedimentation Rate 5 mm/hr (0-20)
[2024-03-17 08:04] LABS: Cholesterol 185 mg/dL (200); High Density Lipoprotein 42 mg/dL; Triglycerides 127 mg/dL; Very Low Density Lipoprotein 25 mg/dL (5-40)
[2024-03-17] MEDS: Thiamine Hydrochloride 100 MG Tablet PO (08:43)
[2024-03-17] MEDS: Sertraline 100 MG Tablet PO (08:43)
[2024-03-17] MEDS: Folic Acid 1 MG Tablet PO (08:44)
--- NOTE | 2024-03-17 09:21 | PN.HOSP_ITS ---
Subjective Subjective Doing well, no issues overnight. Says that he fell at home onto his left side. He has a previous stroke she has weakness in his left upper extremity at baseline Objective Data Objective Data Vital Signs: Vital Signs Temp Pulse Resp BP Pulse Ox O2 Del Method 97.1 F L 70 17 93/63 95 Room Air 03/17/24 08:00 03/17/24 08:00 03/17/24 08:00 03/17/24 08:00 03/17/24 08:00 03/17/24 08:00 Oxygen Delivery Method Room Air Weight: 200 lb 14.4 oz Body Mass Index (BMI) 28.0 Intake & Output: Intake and Output for Last 24 Hours 03/16/24 03/17/24 03/18/24 03:59 03:59 03:59 Intake Total 275 / 275 Output Total 400 / 400 Balance 275 / 275 -400 / -400 Lab / Micro Data 03/16/24 20:20 03/16/24 20:20 Labs: Laboratory Results - last 24 hr 03/16/24 20:20: WBC 15.3 H, RBC 5.11, Hgb 16.4, Hct 47.0, MCV 92.0, MCH 32.1 H, MCHC 34.9, RDW Std Deviation 42.6, RDW Coeff of Parrish 12.7, Plt Count 227, MPV 9.4, Immature Gran % (Auto) 0.800, Neut % (Auto) 83.8 H, Lymph % (Auto) 10.0 L, [place] % (Auto) 4.6, Eos % (Auto) 0.5, Baso % (Auto) 0.3, Absolute Neuts (auto) 12.8 H, Absolute Lymphs (auto) 1.53, Nucleated RBC % 0, ESR 5, PT 12.9, INR 1.0, APTT 22.6 L, Sodium 138, Potassium 4.0, Chloride 104, Carbon Dioxide 29.0, Anion Gap 4 L, BUN 15, Creatinine 0.89, Estim Creat Clear Calc 118.23, Est GFR (MDRD) Af Amer 116, Est GFR (MDRD) Non-Af 96, BUN/Creatinine Ratio 16.9, Glucose 128 H, Hemoglobin A1c 5.9 H, Calcium 9.2, Troponin I High Sens 6, Folate 27.70, TSH 2.650 03/16/24 23:20: Vitamin B12 360, Ethyl Alcohol 150.0 03/17/24 05:50: Urine Opiates Screen NEGATIVE, Urine Methadone Screen NEGATIVE, Ur Barbiturates Screen NEGATIVE, Ur Phencyclidine Scrn NEGATIVE, Ur Amphetamines Screen NEGATIVE, MDMA (Ecstasy) Screen NEGATIVE, U Benzodiazepines Scrn NEGATIVE, Urine Cocaine Screen NEGATIVE, U Cannabinoids Screen POSITIVE H, Ur Drug Screen Comment 03/17/24 06:45: Triglycerides 127, Cholesterol 185, LDL Cholesterol 118, VLDL Cholesterol 25, HDL Cholesterol 42 Radiography Diagnostic Testing: Radiology Impression Brain CT 03/16/24 20:27 IMPRESSION: Extensive chronic ischemic and perhaps chronic hemorrhagic changes as detailed above. No evidence of acute infarct or hemorrhage. ASPECTS: 10. Electronically Signed: Jimmie Rothman DO at 20:44 EST , ADDENDUM: 03/16/242103 IMPRESSION: Extensive chronic ischemic and perhaps chronic hemorrhagic changes as detailed above. No evidence of acute infarct or hemorrhage. ASPECTS: 10. N.B. : The above Results were Read Back by Jimmie Rothman DO to Yvan Rivas MD, and understanding confirmed on 03/16/2024 20:58:01 (ET). Electronically Signed: Jimmie Rothman DO at 20:44 EST , Head/Neck CTA 03/16/24 20:27 IMPRESSION: No acute findings in the arteries of the head and neck. Electronically Signed: Jimmie Rothman DO at 20:56 EST , ADDENDUM: 03/16/242103 IMPRESSION: No acute findings in the arteries of the head and neck. N.B. : The above Results were Read Back by Jimmie Rothman DO to Yvan Rivas MD, and understanding confirmed on 03/16/2024 20:57:56 (ET). Electronically Signed: Jimmie Barr DO Stephan at 20:56 EST , ADDENDUM: 03/16/242107 IMPRESSION: No acute findings in the arteries of the head and neck. N.B. : The above Results were Read Back by Jimmie Rothman DO to Yvan Rivas MD, and understanding confirmed on 03/16/2024 21:01:31 (ET). Electronically Signed: Jimmie StockBelén Rothman DO at 20:56 EST , Chest X-Ray 03/16/24 21:05 IMPRESSION: No acute findings in the chest. Electronically Signed: Jimmie StockBelén Rothman DO at 21:29 EST , Elbow X-Ray 03/16/24 21:05 IMPRESSION: Periolecranon soft tissue swelling. No acute osseous abnormalities. Correlate clinically for evidence of olecranon bursitis or hematoma. Electronically Signed: Jimmie StockBelén Rothman DO at 21:29 EST , Upper Extremity CT 03/17/24 04:56 IMPRESSION: Soft tissue swelling with localized collection over the olecranon, hematoma and/or other such as bursitis. No evidence of fracture. Electronically Signed: Helene Thomas MD at 6:12 EST Reading Location ID and State: [facility] - [place] / [place] Tel , Service support , Physical Exam Narrative General: Alert, Oriented x3, Cooperative, No apparent distress HEENT: Atraumatic, PERRLA, EOMI, Normocephalic Oral: Moist Mucosa Neck: Supple, No JVD Lungs: Diminished, Normal air movement, No rhonchi, No wheeze, No rales Cardiovascular: Regular rate, Regular Rhythm, Normal S1, Normal S2, No murmurs Abdomen: Soft, Non Tender, Non-Distended, No Hepato-splenomegaly Extremities: No edema, Capillary Refill Less than 3 Seconds Skin: No rashes, No breakdown Musculoskeletal: Tenderness to left elbow, CT was negative for fracture Neurological: Neuroexam at baseline as previous CVA Psych/Mental Status: Flat Assessment & Plan Assessment/Plan (1) Left-sided weakness: (2) Alcohol intoxication: QUALIFIERS: Complication of substance-induced condition: with unspecified complication Qualified Code(s): F10.929 - Alcohol use, unspecified with intoxication, unspecified (3) Alcohol abuse: (4) Hemorrhagic stroke: (5) Swelling of left elbow: (6) Leukocytosis: QUALIFIERS: Leukocytosis type: unspecified Qualified Code(s): D 72.829 - Elevated white blood cell count, unspecified PLAN: Plan 1. 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 MRI pending ? Continue with alcohol withdrawal monitoring with CIWA's, continue with phenobarbital ? He has a history of a PFO repeating echo ? Leukocytosis of 15 on admission, will order repeat CBC this morning, continue on antibiotics and urine analysis is also pending ? CT of the elbow was negative for fracture but does demonstrate edema ? She does have chronic spasticity of his left arm from his previous stroke 2. Essential HTN/HLD ? Does have a history of a PFO ? Continue with his home blood pressure medications if MRI is negative ? Continue with Lipitor ? Will monitor make adjustments as necessary 3. Anxiety/depression ? Stable ? Continue with his home medications DVT: SCDs Charges/Coding Visit Charges Inpatient E&M: 66353 Subs Hosp L2
[2024-03-17 09:29] LABS: Absolute Lymphocyte Count 1.56 X10^3/uL (0.83-4.51); Absolute Neutrophil Count 4.8 X10^3/uL (2.0-7.7); Basophil# 0.03 X10^3/uL; Basophil% 0.4 % (0-1); Eosinophil# 0.04 X10^3/uL; Eosinophils% 0.6 % (0-5); Hematocrit 44.4 % (40-54); Hemoglobin 15.1 g/dL (13.0-16.5); Lymphocyte # 1.56 X10^3/ul (0.83-4.51); Lymphocyte % 22.4 % (19-41); Mean Corpuscular Hgb 31.7 pg (27.0-32.0); Mean Corpuscular Volume 93.1 fL (80-94); Mean Platelet Vol. 9.8 fl (6.2-12.0); Monocyte# 0.53 X10^3/uL; Monocyte% 7.6 % (0-10); NRBC Flagged by Analyzer 0 % (0-5); Neutrophil # 4.79 X10^3/uL (2.7-7.7); Neutrophil % 68.7 % (47-70); Platelet Count 189 K/mm3 (150-450); RBC Distribution Width CV 12.8 % (11.6-14.6); RBC Distribution Width SD 43.8 fl (35.1-43.9); Red Blood Count 4.77 M/mm3 (4.6-6.2)
--- NOTE | 2024-03-17 09:30 | MRI_ITS ---
STUDY: MRI BRAIN WITHOUT CONTRAST REASON FOR EXAM: Male, 48 years old. History of CVA with worsening Left-sided weakness, HX OF HEMORRHAGIC CVA OF RT BASAL GANGLIA, PREVIOUS CT TECHNIQUE: Standardized multiplanar fat and water weighted pulse sequences were obtained. COMPARISON: Head CT dated March 16, 2024 FINDINGS: Redemonstration of elongated cystic volume loss in the right external capsule/subinsular cortical region from old infarct with hemosiderin staining in the wall of the cystic area of volume loss, but no acute hemorrhage is present. There is mild cerebral atrophy with widening of the extra-axial spaces and ventricular dilatation. There are a limited number of small white matter hyperintensities, distributed throughout the deep white matter tracts of the cerebral hemispheres, consistent with mild chronic white matter ischemic changes. There is no evidence for recent intracranial ischemia or other cause of cytotoxic edema on diffusion weighted imaging (DWI). There are no demyelinating plagues of the supratentorial brain, brainstem or cerebellum. There are no findings suspicious for multiple sclerosis (MS). Normal thalami. There is no extra-axial fluid accumulation. Normal flow voids within the major intracranial circulation suggesting patency by spin echo criteria. Normal sella turcica, pituitary gland, infundibular stalk, optic chiasm and hypothalamus. Normal tectal plate and pineal gland. Normal midbrain, bev and medulla. Normal cerebellum. Normal basal cisterns. Normal bilateral temporal bones. Normal bilateral internal auditory canals. No demonstrated orbital abnormality, within the constraints of a routine brain study. Normal visualized paranasal sinuses. Normal calvarium and skull base. Normal visualized soft tissue structures. Normal visualized upper cervical spine. MRI/Brain without Contrast IMPRESSION: 1. Old post infarct cystic cavity in the right external capsule/subinsular cortex unchanged from multiple prior studies. 2. No acute infarct or intracranial hemorrhage Electronically Signed: Mauro Rosas MD at 10:43 EST ,
[2024-03-17] MEDS: Vancomycin HCl 1,500 MG in 0.9% Normal Saline (500mL Bag) 500 ML 250 MG IV (12:24)
--- NOTE | 2024-03-17 12:36 | CASEMGMT ---
Social Work PHQ-9 not completed as pt did not have a stroke as per physician. KRISTEN Fitch
--- NOTE | 2024-03-17 14:39 | CASEMGMT ---
Social Work SW met w/pt in regard to prior level of function and anticipated discharge plan, and to inquire if he would like any resources for alcohol cessation. PCP: Dr. Viraj Arias Specialists: Dr. Foreman, neurologist Pharmacy: [facility] Insurance: GRANT Oconnor Living arrangements/prior level of function: Pt lives home w/ and 4 year old son. Pt does have older children who do not live in the home. Pt was independent prior to this, works at the [employer]. LW/POA: Pt has completed the documents, states his Larry is his healthcare POA. DME/HHC/SNF: Pt has been to [facility] Inpt rehab, had [facility] HH set up after that. Pt does not use any DME Alcohol use: Pt states he started drinking when he was 28, and his drinking increased after his daughter went through a traumatic event 12-13 years ago. The pt describes this situation as causing his marriage and home life to fall apart. SW offered support to pt as he became tearful while discussing this past trauma. Pt is now and remarried, has been remarried for 5 years, has a 4 year old. Pt states he does want to cut back on drinking, is taking a medication that helps to curb his cravings. He states when he drank prior to this hospital stay he had not drank for two months. Pt does not plan to drink when he goes home though states is going to [place] in April and will likely drink then. Pt states he had been working on cutting down how much he drinks for a while. SW spoke w/pt about counseling, both for alcohol cessation and for mental health. Pt states he likes to do things on his own, however upon further discussion he was open to resources. SW did provide to pt resources for mental health along w/mental health and substance use counseling. SW did also ask pt about outpt PT, pt declined a referral for this at this time. Pt plans to return home at discharge, resources given. No further needs at this time. Plan: Home KRISTEN Fitch
--- NOTE | 2024-03-17 17:01 | CON.PCM.NE_ITS ---
Assessment and Plan: Stroke Assessment/Plan TRACY MANRIQUE Jr. 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 Suspect fall secondary to EtOH use and fall on ice. Considered alternative diagnosis such as seizure given prior brain injury, possible tongue bite in this event, and EtOH abuse but lower likelihood as no cortical injury with prior bleed. No further workup required now but could consider if he has repeated events of alteration of consciousness. Continue to treat EtOH withdrawal per ICU. Telestroke service will sign off. HPI Consult Data Date of Consult: 03/17/24 HPI Narrative HPI Narrative: TRACY MANRIQUE, is a 48 M50 w/ prior R BG ICH w/ residual L hemiparesis, EtOH abuse, HTN/HLD. 03/16/24 p/w fall. found him down next to the hot tub and he appeared drunk. EMS had concern for worsening of L weakness so stroke alert called. Telestroke done with no emergency treatment. MRI neg. CTA neg. Some concern for tongue biting during event due to bruising but no laceration. Never had an event like this before. His EtOH level was high in the ED and admitted to ICU for EtOH withdrawal. [facility] Medical History Hemiplegia following CVA (cerebrovascular accident) Contracture of muscle, left upper arm Patent foramen ovale Spasticity due to old stroke Left shoulder pain Hypertension Cerebrovascular accident (CVA) Dysarthria Physical debility Left homonymous inferior quadrantanopia Overweight (BMI 25.0-29.9) Cognitive dysfunction due to acute cerebrovascular accident (CVA) Left-sided neglect Facial droop Left hemiparesis Anxiety Essential (primary) hypertension Diabetes mellitus, type 2 EtOH dependence Dyslipidemia Hemorrhagic stroke Home Medications ?Medication ?Instructions ?Recorded ?Last Taken ?Type acetaminophen 325 mg tablet 650 mg (2 x 325 mg) PO Q6H PRN PRN 07/18/21 Unknown Rx (Tylenol) PAIN #0 tabs aspirin 81 mg tablet,delayed 81 mg PO QODAY 09/25/21 Unknown History release (Adult Aspirin Regimen) atenolol 25 mg tablet 25 mg PO BID 03/01/23 Unknown History buspirone 5 mg tablet 5 mg PO BID PRN anxiety 03/01/23 Unknown History sertraline 100 mg tablet 100 mg PO DAILY 03/01/23 Unknown History ramipril 10 mg capsule 10 mg PO DAILY #90 caps 03/26/23 Unknown Rx methocarbamol 750 mg tablet See Rx Instructions .Route 12/26/23 Unknown Rx .COMPLEX #180 tabs atorvastatin 40 mg tablet 40 mg PO QHS cholesterol #30 tabs 03/10/24 Unknown Rx diazepam 5 mg tablet 5 mg PO QDAY PRN muscle spasm #2 03/10/24 Unknown Rx tabs folic acid 1 mg tablet 1 mg PO DAILY #30 tabs 03/10/24 Unknown Rx onabotulinumtoxinA 200 unit 400 unit IM ONCE #2 ea 03/10/24 Unknown Rx solution for injection (Botox) naltrexone 50 mg tablet 50 mg PO DAILY 03/16/24 Unknown History Allergy/AdvReac Type Severity Reaction Status Date / Time hydrocodone (From Vicodin) Allergy Severe Nausea Verified 03/16/24 20:43 Family History Grandmother Diabetes Surgical History H/O wisdom tooth extraction H/O hernia repair Skin tag Social History adopted: No household members: spouse and other details: 1 son who is 16 months old. This is his 2nd marriage. 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 Vodka, Rum, [place]. He likes the taste. substance use type: does not use caffeine: No what type of physical activity do you participate in: additional details: no exercise other than walking around at work. Vital Signs Vital Signs Vital Signs: 03/16/24 20:23 03/16/24 20:27 03/16/24 20:27 Temperature Temperature Source Pulse Rate 70 61 Respiratory Rate 18 18 Respiratory Effort Respiratory Pattern Blood Pressure 116/74 114/70 Blood Pressure Mean 88 84 Blood Pressure Source Blood Pressure Position Blood Pressure Location Pulse Ox 93 92 Oxygen Delivery Method Room Air Room Air Room Air 03/16/24 20:29 03/16/24 20:46 03/16/24 20:57 Temperature 97.5 F L 97.6 F L Temperature Source Temporal Axillary Pulse Rate 70 65 63 Respiratory Rate 16 17 18 Respiratory Effort Respiratory Pattern Blood Pressure 138/89 H 114/70 Blood Pressure Mean 105 84 Blood Pressure Source Blood Pressure Position Blood Pressure Location Pulse Ox 95 93 93 Oxygen Delivery Method Room Air Room Air Room Air 03/16/24 21:04 03/16/24 21:23 03/16/24 22:00 Temperature 97.6 F L Temperature Source Pulse Rate 63 60 60 Respiratory Rate 18 16 17 Respiratory Effort Respiratory Pattern Blood Pressure 106/59 L 99/84 H 99/84 H Blood Pressure Mean 74 89 89 Blood Pressure Source Blood Pressure Position Blood Pressure Location Pulse Ox 91 92 91 Oxygen Delivery Method Room Air Room Air 03/16/24 23:00 03/16/24 23:56 03/17/24 00:10 Temperature 97.6 F L Temperature Source Temporal Pulse Rate 57 L 61 Respiratory Rate 15 15 Respiratory Effort Normal Respiratory Pattern Normal Blood Pressure 111/85 H 127/89 H Blood Pressure Mean 93 101 Blood Pressure Source Monitor Blood Pressure Position Semi-Fowlers Blood Pressure Location Right Arm Pulse Ox 93 100 Oxygen Delivery Method Room Air Room Air 03/17/24 04:00 03/17/24 06:15 03/17/24 07:44 Temperature 97.1 F L 97.2 F L Temperature Source Temporal Temporal Pulse Rate 61 61 Respiratory Rate 17 17 Respiratory Effort Respiratory Pattern Blood Pressure 113/75 113/75 Blood Pressure Mean 87 87 Blood Pressure Source Monitor Monitor Blood Pressure Position Semi-Fowlers Blood Pressure Location Right Arm Pulse Ox 95 95 94 Oxygen Delivery Method Room Air Room Air Room Air 03/17/24 08:00 03/17/24 14:00 Temperature 97.1 F L 98.1 F Temperature Source Temporal Temporal Pulse Rate 70 62 Respiratory Rate 17 15 Respiratory Effort Respiratory Pattern Blood Pressure 93/63 123/95 H Blood Pressure Mean 73 104 Blood Pressure Source Monitor Monitor Blood Pressure Position Semi-Fowlers Blood Pressure Location Left Arm Pulse Ox 95 98 Oxygen Delivery Method Room Air Room Air Weight Weight: 91.127 kg Body Mass Index (BMI) 28.0 EEG Results Procedure Details EEG Procedure Details: TRACY MANRIQUE Jr. is a 48 year old M with a past medical history of , who presents for evaluation of Electroencephalogram on DATE at TIME NIHSS NIHSS Nursing Documentation NIHSS Nursing Documentation: NIHSS: Ischemic Stroke/TIA Start: 03/17/24 00:13 Text: For PCU Patients: NIH and Neuro Check every 4 Status: Complete hours, PRN and with change in RN caregiver. Freq: [id number] Protocol: Activity Type Activity Date Activity User E-sign Co-sign Detail Recorded Client Recorded Date Recorded By Document 03/17/24 10:00 [facility] [id number] 03/17/24 12:10 [facility] 03/17/24 10:00 NIH Stroke Scale [NIHSS] A score of 0 is normal or asymptomatic . Total possible score is 42. Inpatient: RN or Physician to activate a stroke alert for onset of new stroke symptoms or with NIHSS increase >/= 3 points. Following change in neurological status, NIHSS will be performed per physician order or more frequently PRN. -1a. Level of Consciousness Alert; keenly responsive -1b. LOC Questions Answers BOTH questions correctly. -1c. LOC Commands Performs both tasks correctly . -2. Best Gaze Normal -3. Visual No visual loss -4. Facial Palsy Minor paralysis (flattened nasolabial fold , asymmetry on smiling) -5a. Left Arm No drift; arm holds 90 (or 45 ) degrees for full 10 seconds -5b. Right Arm No drift; arm holds 90 (or 45 ) degrees for full 10 seconds -6a. Left Leg No drift; leg holds 30-degree position for full 5 seconds -6b. Right Leg No drift; leg holds 30-degree position for full 5 seconds -7. Limb Ataxia Absent -8. Sensory Mild-to- moderate sensory loss; -9. Best Language No aphasia; normal -10. Dysarthria Normal -11. Extinction and Inattention No abnormality -Total 2 Query Text:A score of 0 is normal or asymptomatic. Total possible score is 42 . ED: Notify Physician for NIHSS increase by > / = 3 points. Inpatient: RN or Physician to activate a stroke alert for NIHSS increase of > / = 3 points. Physical Exam Narrative chronic spastic L hemiparesis and hemisensory deficit. NIHSS 3 (sensation 1, LLE 2) Lab / Micro Data 03/17/24 06:45 03/16/24 20:20 Labs: Laboratory Results - last 24 hr 03/16/24 20:20: WBC 15.3 H, RBC 5.11, Hgb 16.4, Hct 47.0, MCV 92.0, MCH 32.1 H, MCHC 34.9, RDW Std Deviation 42.6, RDW Coeff of Parrish 12.7, Plt Count 227, MPV 9.4, Immature Gran % (Auto) 0.800, Neut % (Auto) 83.8 H, Lymph % (Auto) 10.0 L, [place] % (Auto) 4.6, Eos % (Auto) 0.5, Baso % (Auto) 0.3, Absolute Neuts (auto) 12.8 H, Absolute Lymphs (auto) 1.53, Nucleated RBC % 0, ESR 5, PT 12.9, INR 1.0, APTT 22.6 L, Sodium 138, Potassium 4.0, Chloride 104, Carbon Dioxide 29.0, A nion Gap 4 L, BUN 15, Creatinine 0.89, Estim Creat Clear Calc 118.23, Est GFR (MDRD) Af Amer 116, Est GFR (MDRD) Non-Af 96, BUN/Creatinine Ratio 16.9, Glucose 128 H, Hemoglobin A1c 5.9 H, Calcium 9.2, Troponin I High Sens 6, Folate 27.70, TSH 2.650 03/16/24 23:20: Vitamin B12 360, Ethyl Alcohol 150.0 03/17/24 05:50: Urine Opiates Screen NEGATIVE, Urine Methadone Screen NEGATIVE, Ur Barbiturates Screen NEGATIVE, Ur Phencyclidine Scrn NEGATIVE, Ur Amphetamines Screen NEGATIVE, MDMA (Ecstasy) Screen NEGATIVE, U Benzodiazepines Scrn NEGATIVE, Urine Cocaine Screen NEGATIVE, U Cannabinoids Screen POSITIVE H, Ur Drug Screen Comment 03/17/24 06:45: WBC 7.0, RBC 4.77, Hgb 15.1, Hct 44.4, MCV 93.1, MCH 31.7, MCHC 34.0, RDW Std Deviation 43.8, RDW Coeff of Parrish 12.8, Plt Count 189, MPV 9.8, Immature Gran % (Auto) 0.300, Neut % (Auto) 68.7, Lymph % (Auto) 22.4, [place] % (Auto) 7.6, Eos % (Auto) 0.6, Baso % (Auto) 0.4, Absolute Neuts (auto) 4.8, Absolute Lymphs (auto) 1.56, Nucleated RBC % 0, Triglycerides 127, Cholesterol 185, LDL Cholesterol 118, VLDL Cholesterol 25, HDL Cholesterol 42 Imaging Radiology Impression Brain CT 03/16/24 20:27 IMPRESSION: Extensive chronic ischemic and perhaps chronic hemorrhagic changes as detailed above. No evidence of acute infarct or hemorrhage. ASPECTS: 10. Electronically Signed: Jimmie Rothman DO at 20:44 EST , ADDENDUM: 03/16/242103 IMPRESSION: Extensive chronic ischemic and perhaps chronic hemorrhagic changes as detailed above. No evidence of acute infarct or hemorrhage. ASPECTS: 10. N.B. : The above Results were Read Back by Jimmie Rothman DO to Yvan Rivas MD, and understanding confirmed on 03/16/2024 20:58:01 (ET). Electronically Signed: Jimmie Rothman DO at 20:44 EST , Head/Neck CTA 03/16/24 20:27 IMPRESSION: No acute findings in the arteries of the head and neck. Electronically Signed: Jimmie Rothman DO at 20:56 EST , ADDENDUM: 03/16/242103 IMPRESSION: No acute findings in the arteries of the head and neck. N.B. : The above Results were Read Back by Jimmie Rothman DO to Yvan Rivas MD, and understanding confirmed on 03/16/2024 20:57:56 (ET). Electronically Signed: Jimmie Rothman DO at 20:56 EST , ADDENDUM: 03/16/242107 IMPRESSION: No acute findings in the arteries of the head and neck. N.B. : The above Results were Read Back by Jimmie Rothman DO to Yvan Rivas MD, and understanding confirmed on 03/16/2024 21:01:31 (ET). Electronically Signed: Jimmie StockBelén Rothman DO at 20:56 EST , Chest X-Ray 03/16/24 21:05 IMPRESSION: No acute findings in the chest. Electronically Signed: Jimmie VBelén Rothman DO at 21:29 EST , Elbow X-Ray 03/16/24 21:05 IMPRESSION: Periolecranon soft tissue swelling. No acute osseous abnormalities. Correlate clinically for evidence of olecranon bursitis or hematoma. Electronically Signed: Jimmie VBelén Rothman DO at 21:29 EST , Echocardiogram 03/16/24 23:30 Interpretation Summary Normal LV size. Left ventricular systolic function is normal. The left ventricular ejection fraction is 70 %. Structurally normal valves. Ordering Physician: Cezar Stone Referring Physician: Viraj Arias MD Performed By: Kassy Zamora RDCS Upper Extremity CT 03/17/24 04:56 IMPRESSION: Soft tissue swelling with localized collection over the olecranon, hematoma and/or other such as bursitis. No evidence of fracture. Electronically Signed: Helene Thomas MD at 6:12 EST , Brain MRI 03/17/24 09:30 IMPRESSION: 1. Old post infarct cystic cavity in the right external capsule/subinsular cortex unchanged from multiple prior studies. 2. No acute infarct or intracranial hemorrhage Electronically Signed: Mauro Rosas MD at 10:43 EST , Active Medications Active Medications Active Medications: Current Medications Generic Name Dose Route Start Last Admin Trade Name Freq PRN Reason Stop Dose Admin Acetaminophen 650 mg 03/17/24 00:13 Acetaminophen 325 Mg Tablet PO Q6H PRN PRN Pain 1-10 or Fever Aspirin 81 mg 03/18/24 10:00 Aspirin E.C. 81 Mg Tablet PO QODAY TEAGAN Atorvastatin Calcium 40 mg 03/17/24 22:00 Atorvastatin Calcium 40 Mg Tablet PO QHS TEAGAN Buspirone HCl 5 mg 03/17/24 00:13 Buspirone 5 Mg Tablet PO BID PRN PRN MODERATE anxiety Clarify Med Order 1 each 03/17/24 01:15 03/17/24 15:12 Clarify Order NOTE Not Given CLARIFY TEAGAN Dicyclomine HCl 20 mg 03/17/24 00:13 Dicyclomine 10 Mg Capsule PO Q6H PRN PRN abdominal discomfort Folic Acid 1 mg 03/17/24 08:00 03/17/24 08:44 Folic Acid 1 Mg Tablet PO 1 mg DAILY@0800 TEAGAN Administration Gabapentin 300 mg 03/17/24 00:13 Gabapentin 300 Mg Capsule PO Q8H PRN PRN severe anxiety Hydroxyzine Pamoate 50 mg 03/17/24 00:13 Hydroxyzine Nidhi 25 Mg Capsule PO Q4H PRN PRN mild anxiety Vancomycin IV-PHARMACY TO DOSE 500 mls @ 250 mls/hr 03/17/24 00:38 1 each/ Sodium Chloride IV X1 PRN Rx to Dose Protocol Piperacillin Sod/Tazobactam 50 mls @ 12.5 mls/hr 03/17/24 06:00 03/17/24 14:37 Sod 3.375 gm/ Sodium Chloride IV 12.5 mls/hr Q8 TEAGAN Administration Sodium Chloride 100 mls @ 15 mls/hr 03/17/24 01:24 IV .Q6H40M PRN Saline Flush Sodium Chloride 100 mls @ 15 mls/hr 03/17/24 01:24 IV .Q6H40M PRN Additional IVPB Infusion Vancomycin HCl 1,500 mg/ 530 mls @ 250 mls/hr 03/17/24 13:30 03/17/24 14:42 Sodium Chloride IV Infused Q12H TEAGAN Infusion Labetalol HCl 20 mg 03/16/24 20:27 Labetalol 20mg/4ml Syringe IV 03/17/24 20:27 X1 PRN Blood Pressure Loperamide HCl 2 mg 03/17/24 00:13 Loperamide 2 Mg Capsule PO Q4H PRN PRN LS Methocarbamol 750 mg 03/17/24 06:00 03/17/24 14:37 Methocarbamol 750 Mg Tablet PO 750 mg TID TEAGAN Administration Ondansetron HCl 8 mg 03/17/24 00:13 Ondansetron Odt 4 Mg Tablet PO Q8H PRN PRN NAUSEA Phenobarbital 97.2 mg 03/17/24 00:00 03/17/24 16:16 Phenobarbital 32.4 Mg Tablet PO 03/21/24 07:59 97.2 mg Q4H TEAGAN Administration Taper Sertraline HCl 100 mg 03/17/24 10:00 03/17/24 08:43 Sertraline 100 Mg Tablet PO 100 mg DAILY TEAGAN Administration Sodium Chloride 10 - 40 ml 03/17/24 01:24 0.9% Saline Lock 10 Ml Syringe IV UD PRN SALINE FLUSH Thiamine HCl 100 mg 03/17/24 08:00 03/17/24 08:43 Thiamine Hydrochloride 100 Mg Tablet PO 100 mg DAILYCM TEAGAN Administration Trazodone HCl 100 mg 03/17/24 00:13 Trazodone 100 Mg Tablet PO QHS PRN PRN INSOMNIA Vancomycin Protocol 1 lab 03/18/24 11:00 Vancomycin Trough/Random Due 03/18/24 15:00 DAILY TEAGAN
[2024-03-17] MEDS: Atorvastatin Calcium 40 MG Tablet PO (21:11)
[2024-03-18 00:15] VITALS: BP 100/68; PULSE 59; RESP 16; TEMP 35.8; O2SAT 96
[2024-03-18] MEDS: Phenobarbital 32.4 MG Tablet 64.8 MG PO ×4 (00:53→12:00)
[2024-03-18] MEDS: Vancomycin HCl 1,500 MG in 0.9% Normal Saline (500mL Bag) 500 ML 250 MG IV (02:51)
[2024-03-18 03:27] VITALS: BMI 28.0
[2024-03-18 04:13] VITALS: BP 106/78; PULSE 49; RESP 15; TEMP 35.8; O2SAT 99
[2024-03-18 05:29] LABS: Absolute Lymphocyte Count 2.27 X10^3/uL (0.83-4.51); Absolute Neutrophil Count 2.2 X10^3/uL (2.0-7.7); Basophil# 0.03 X10^3/uL; Basophil% 0.6 % (0-1); Eosinophil# 0.18 X10^3/uL; Eosinophils% 3.5 % (0-5); Hematocrit 38.4 % (40-54); Hemoglobin 13.2 g/dL (13.0-16.5); Lymphocyte # 2.27 X10^3/ul (0.83-4.51); Lymphocyte % 43.7 % (19-41); Mean Corp Hgb Conc 34.4 g/dL (32-36); Mean Corpuscular Hgb 31.7 pg (27.0-32.0); Mean Corpuscular Volume 92.3 fL (80-94); Mean Platelet Vol. 9.6 fl (6.2-12.0); Monocyte# 0.48 X10^3/uL; Monocyte% 9.2 % (0-10); NRBC Flagged by Analyzer 0 % (0-5); Neutrophil # 2.21 X10^3/uL (2.7-7.7); Neutrophil % 42.6 % (47-70); Platelet Count 175 K/mm3 (150-450); RBC Distribution Width CV 12.6 % (11.6-14.6); Red Blood Count 4.16 M/mm3 (4.6-6.2); White Blood Count 5.2 K/mm3 (4.4-11.0)
[2024-03-18 05:48] LABS: Anion Gap 2 (5-15); BUN 11 mg/dL (7-18); Calcium,Total 8.4 mg/dL (8.5-10.1); Chloride 107 mmol/L (98-107); Creatinine, Serum 0.85 mg/dL (0.70-1.30); EST Glomerular Filtration Rate 102 mL/min (>60); Est Glom Filt Rate - Afr Amer 123 mL/min (>60); Estimated Creatinine Clearance 120.05 ml/min; Glucose 118 mg/dL (74-106); Potassium 3.4 mmol/L (3.5-5.1); Sodium Level 136 mmol/L (136-145)
[2024-03-18] MEDS: Methocarbamol 750 MG Tablet PO (06:28)
[2024-03-18] MEDS: Piperacil/Tazobactam 3.375 GM in 0.9% Normal Saline (50mL MB+) 50 ML IV (06:29)
[2024-03-18] MEDS: 0.9% Saline Lock 10 ML Syringe IV ×3 (06:30→12:00)
[2024-03-18 07:33] VITALS: O2SAT 95
[2024-03-18 08:08] LABS: Mucous, Urine 0 SEEN /hpf (<or=2+); Red Blood Cells-Urine 0 SEEN /hpf (0-5); Squamous Epithelial Cells - UA 0 SEEN /hpf (0-5); White Blood Cells 0 SEEN /hpf (0-5)
[2024-03-18 08:15] VITALS: BP 111/57; PULSE 68; RESP 16; TEMP 36.4; O2SAT 98
[2024-03-18] MEDS: Sertraline 100 MG Tablet PO (08:44)
[2024-03-18] MEDS: Thiamine Hydrochloride 100 MG Tablet PO (08:44)
[2024-03-18] MEDS: Aspirin E.C. 81 MG Tablet PO (08:44)
[2024-03-18] MEDS: Folic Acid 1 MG Tablet PO (08:44)
[2024-03-18] MEDS: Acetaminophen 325 MG Tablet 650 MG PO (08:55)
[2024-03-18 09:01] LABS: Color, Urine Yellow (Yellow); Glucose, Dipstick Normal (Normal); Ketone-Dipstick Negative (Negative); Leukocyte Esterase-Dipstick 25 /ul (Negative); Nitrite-Dipstick Negative (Negative); Occult Blood-Urine Negative /ul (Negative); Protein-Dipstick 15 mg/dl (Negative); Urine Bilirubin Dipstick Negative (Negative); Urine Clarity Clear (Clear); Urine Urobilinogen Normal (Normal)
[2024-03-18 09:15] LABS: Bacteria 1+ /hpf (None Seen); Renal Epithelial Cells 0-5 SEEN /hpf (0-5)
--- NOTE | 2024-03-18 10:58 | DCINST_ITS ---
Discharge Instructions Diet Discharge Diet: No restrictions DC O2, CPAP, BIPAP needs Home O2 Discharge instructions: No Dressing / Incision Discharge Activity: Return to Normal Activity Dressing / Incision Call your doctor if you observe: Fever of 101 or Higher, Shortness of breath, Dizziness, Fainting spells, Swelling in the ankles, Chest pain and Increased palpitations (irregular heartbeat) Follow Up Care Test Results: Test results from this visit will be discussed in further detail at your follow- up appointment, if applicable. Discharge Plan Admission Admit Date/Time: 03/16/24 23:19 Attending Provider: Wang Garrett Primary Care Provider: Viraj Arias Consulting Providers: Harris Calderon; Babatunde Ibarra; Marlena Blackburn; Magdalena Bianchi; Rehana Garcia; Garrett Hwang; Leatha Abrams; Clint Sepulveda; Allan Portillo; Jarvis Sifuentes; Kristie Teran; Randal Kearns; Valerie Landrum; Parveen Taylor; Teddy Mir; Andrew Olivarez; Arvin Escobar; Greg Key; Maribel Flores; Lamberto Dickerson; Cezar Stone Discharge Orders/Prescriptions Prescriptions: Continued aspirin [Adult Aspirin Regimen] 81 mg tablet,delayed release (DR/EC) 81 mg PO QODAY sertraline 100 mg tablet 100 mg PO DAILY Patient Comments: TAKE 1 TABLET BY MOUTHCDAILY buspirone 5 mg tablet 5 mg PO BID PRN (Reason: anxiety) atenolol 25 mg tablet 25 mg PO BID ramipril 10 mg capsule 10 mg PO DAILY Qty: 90 3RF methocarbamol 750 mg tablet See Rx Instructions .ROUTE .COMPLEX Qty: 180 5RF Rx Instructions: Take 1 tablet orally 3 times daily for 1 week then 2 tablets 3 times daily thereafter. diazepam 5 mg tablet 5 mg PO QDAY PRN (Reason: muscle spasm) Qty: 2 0RF Botox 200 unit recon soln 400 unit IM ONCE Qty: 2 0RF folic acid 1 mg tablet 1 mg PO DAILY Qty: 30 6RF atorvastatin 40 mg tablet 40 mg PO QHS Qty: 30 5RF acetaminophen [Tylenol] 325 mg Tablet 650 mg PO Q6H PRN PRN (Reason: PAIN) Qty: 0 0RF naltrexone 50 mg tablet 50 mg PO DAILY Referrals / Follow Up: Viraj Arias MD [Primary Care Provider] - Within 1 Week Disposition Disposition (needs filled in before D/C Order can be placed): Home, Self Care
[2024-03-18 11:59] VITALS: BP 114/79; PULSE 65; RESP 16; TEMP 36.4; O2SAT 98
[2024-03-18 12:00] VITALS: BMI 28.0
[2024-03-18] MEDS: Potassium Chloride Oral Tablet 20 MEQ 40 MEQ PO (12:00)
--- NOTE | 2024-03-18 13:00 | NURSING ---
This RN went over DC instructions with pt at this time, pt refused to wait to talk to CM before leaving, stating i don't need any of that Case Management or Social Work stuff.
[2024-03-18 13:07] LABS: CRP, High Sensitivity 4.98 mg/L (0.00-3.00)
--- NOTE | 2024-03-18 15:44 | PCM.DC.SUM ---
Providers Date of Admission: 03/16/24 Primary Care Physician: Dr. Viraj Arias MD Consultations 03/17/24 00:13 Consult: Tele-Neurology Routine Consulting Provider: [facility] Reason for Consult: Acute Ischemic Stroke/TIA EMERGENT Consult: No MD Notified: Yes Date Notified: 03/16/24 Time Notified: 23:24 Method of Notification: ED Physician Initiated Nursing Unit Staff Notify [facility] of Tele-Neurology Consult: Yes Reason For Visit: STROKE ALERT Diagnosis Discharge Diagnosis (1) Left-sided weakness: Status: Acute Code(s): R53.1 - Weakness (2) Alcohol intoxication: Status: Acute Code(s): F10.929 - Alcohol use, unspecified with intoxication, unspecified Qualifiers: Complication of substance-induced condition: with unspecified complication Qualified Code(s): F10.929 - Alcohol use, unspecified with intoxication, unspecified (3) Alcohol abuse: Status: Acute Code(s): F10.10 - Alcohol abuse, uncomplicated (4) Hemorrhagic stroke: Status: Chronic Code(s): I61.9 - Nontraumatic intracerebral hemorrhage, unspecified (5) Swelling of left elbow: Status: Acute Code(s): M25.422 - Effusion, left elbow (6) Leukocytosis: Status: Acute Code(s): D72.829 - Elevated white blood cell count, unspecified Qualifiers: Leukocytosis type: unspecified Qualified Code(s): D72.829 - Elevated white blood cell count, unspecified Medications at Discharge Home Medications acetaminophen 325 mg tablet (Tylenol) 650 mg (2 x 325 mg) PO Q6H PRN PRN PAIN #0 tabs 07/18/21 aspirin 81 mg tablet,delayed release (Adult Aspirin Regimen) 81 mg PO QODAY heart health 09/25/21 atenolol 25 mg tablet 25 mg PO BID heart/BP 03/01/23 buspirone 5 mg tablet 5 mg PO BID PRN anxiety 03/01/23 sertraline 100 mg tablet 100 mg PO DAILY mood 03/01/23 ramipril 10 mg capsule 10 mg PO DAILY blood pressure #90 caps 03/26/23 methocarbamol 750 mg tablet See Rx Instructions .Route .COMPLEX muscle spasms #180 tabs 12/26/23 atorvastatin 40 mg tablet 40 mg PO QHS cholesterol #30 tabs 03/10/24 diazepam 5 mg tablet 5 mg PO QDAY PRN muscle spasm #2 tabs 03/10/24 folic acid 1 mg tablet 1 mg PO DAILY supplement #30 tabs 03/10/24 onabotulinumtoxinA 200 unit solution for injection (Botox) 400 unit IM ONCE muscle spasticity #2 ea 03/10/24 naltrexone 50 mg tablet 50 mg PO DAILY substance cessation 03/16/24 Hospital Course Operations None Procedures 2-D Echocardiogram Summary of Care Provided Minutes Spent on Discharge: 36 Hospital Course: Per HPI: TRACY MANRIQUE, is a 48 M with a past medical history of essential hypertension; on ramipril and atenolol, hyperlipidemia; previously on atorvastatin, obesity; with BMI of 30 this admission, DM-2; of unknown control currently untreated, 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 presumably due to uncontrolled hypertension (06/2021); with subsequent Left hemiparesis on BASA, contracture of Left upper extremity with chronic Left shoulder pain; on Botox, dysarthria and physical debility, history of Left homonymous inferior quadrantanopia, history of PFO, history of alcohol dependence; with patient admitting to drinking only 1 drink daily, depression with anxiety; on sertraline, buspirone and prn diazepam, history of muscle spasms; on prn methocarbamol, history of hernia; s/p repair and chronic physical debility who presents to [facility] ER complaining of suspected worsening Left-sided weakness. 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 Per EMS, he was able to drive to work and back home today with a baseline left-sided facial droop and LUE contracture that has not changed from previous. He denies recent fall but he does admit to increased Left elbow pain and swelling. He also admits to having 1 alcoholic drink earlier today but he denies chronic alcohol abuse or history of withdrawal but he does admit to having a bad day. There was no report of fever, chills, nausea, vomiting, diarrhea, constipation, abdominal pain, chest pain, SOB or headache but he does admit to incidentally noticing increasing swelling of his Left elbow with no recent memory of trauma but with patient claiming he has decreased sensation in his Left arm so he is not completely sure. He denies illicit drug use. In the ER he was noted to have a strong smell of alcohol with an NIH stroke scale of 3 with a CTA of the head and neck noting old strokes but no evidence of acute hemorrhage or LVO along with [facility] recommending MRI to rule out any possible extension of stroke along with suspicion his recent alcohol use may have triggered his worsening neurologic symptoms with confirmatory elevated SAILAJA of 150 mg/dL present on admission along with Leukocytosis of 15.3 K present on admission with Left elbow swelling consistent with suspected Olecranon Bursitis; with possible evolving infection. Patient was not initially honest about his recent alcohol use - likely due at least in part to the presence of his at the bedside who was unpleasantly surprised to learn of his recent alcohol use. He was then admitted to the PCU under observation status for ongoing care for status expected to be less than 2 midnights. Hospital Course: 1. Increased left-sided weakness status post fall in the setting of alcohol abuse and history of hemorrhagic CVA of the right basal ganglia with left elbow swelling?48-year-old male with a previous history of hemorrhagic CVA with chronic left-sided deficits slipped on ice and landed on his left side hitting his left elbow. It was swollen with what looks like a swollen bursa. ESR was normal and his CRP was only slightly elevated to 5. He did have a temporary leukocytosis and was started on broad-spectrum antibiotics however he has had resolution of his white count very quickly and there is no redness or tenderness over his left elbow. MRI was negative for stroke and echocardiogram demonstrated an EF of 70%. He states that the drink he had prior to admission was the first drink he is had since January so he did not feel that he was going through alcohol withdrawal and did not need detox. I discussed with him the possibility of discharge today he expressed understanding there is benefits going home and would like to go home today. I elected not to proceed with oral antibiotics on discharge given the lack of an inflammatory response and the normalization of his leukocytosis especially with the finding of no elbow pain and redness on exam. I do recommend develop with his PCP in 3 to 5 days and if he has new swelling as well as erythema on the left elbow then at that time would recommend starting antibiotics. 2. Essential hypertension, hyperlipidemia, anxiety, depression are all chronic medical conditions which complicate his care. His home medications were continued where appropriate Physical Exam Narrative General: Alert, Oriented x3, Cooperative, No apparent distress HEENT: Atraumatic, PERRLA, EOMI, Normocephalic Oral: Moist Mucosa Neck: Supple, No JVD Lungs: Diminished, Normal air movement, No rhonchi, No wheeze, No rales Cardiovascular: Regular rate, Regular Rhythm, Normal S1, Normal S2, No murmurs Abdomen: Soft, Non Tender, Non-Distended, No Hepato-splenomegaly Extremities: No edema, Capillary Refill Less than 3 Seconds Skin: No rashes, No breakdown Musculoskeletal: Left elbow bursitis much improved no tenderness no erythema CT was negative for fracture Neurological: Neuroexam at baseline as previous CVA Psych/Mental Status: Flat Weight / BMI Weight Weight: 200 lb 14.4 oz Body Mass Index (BMI) 28.0 ABG / Lab / Microbiology Data 03/18/24 04:53 03/18/24 04:53 Laboratory: Laboratory Results - last 24 hr 03/17/24 06:45: C-React Prot High Sens 4.98 H 03/18/24 04:53: WBC 5.2, RBC 4.16 L, Hgb 13.2, Hct 38.4 L, MCV 92.3, MCH 31.7, MCHC 34.4, RDW Std Deviation 43.0, RDW Coeff of [place] 12.6, Plt Count 175, MPV 9.6, Immature Gran % (Auto) 0.400, Neut % (Auto) 42.6 L, Lymph % (Auto) 43.7 H, [place] % (Auto) 9.2, Eos % (Auto) 3.5, Baso % (Auto) 0.6, Absolute Neuts (auto) 2.2, Absolute Lymphs (auto) 2.27, Nucleated RBC % 0, Sodium 136, Potassium 3.4 L, Chloride 107, Carbon Dioxide 27.0, Anion Gap 2 L, BUN 11, Creatinine 0.85, Estim Creat Clear Calc 120.05, Est GFR (MDRD) Af Amer 123, Est GFR (MDRD) Non-Af 102, BUN/Creatinine Ratio 13.0, Glucose 118 H, Calcium 8.4 L 03/18/24 07:00: Urine Color Yellow, Urine Clarity Clear, Urine pH 5.0, Ur Specific [place] 1.020, Urine Protein 15 H, Urine Glucose (UA) Normal, Urine Ketones Negative, Urine Occult Blood Negative, Urine Nitrite Negative, Urine Bilirubin Negative, Urine Urobilinogen Normal, Ur Leukocyte Esterase 25 H, Urine RBC 0 SEEN, Urine WBC 0 SEEN, Ur Squamous Epith Cells 0 SEEN, Ur Renal Epithelial Cell 0-5 SEEN, Urine Bacteria 1+, Urine Mucus 0 SEEN D/C Instructions Discharge Diet: No restrictions Call your doctor if you observe: Fever of 101 or Higher, Shortness of breath, Dizziness, Fainting spells, Swelling in the ankles, Chest pain and Increased palpitations (irregular heartbeat) DC O2, CPAP, BIPAP Needs Home O2 Discharge instructions: No Meaningful Use Info Meaningful Use Meaningful Use Diagnoses (Choose all that apply): None applicable Ischemic Stroke Statin Dosing Therapy Reference: STATIN DOSE THERAPY REFERENCE: * Patients > 75 years receive moderate or high dose statin therapy. * Patients 75 years or YOUNGER should receive HIGH intensity statin dose unless contraindicated. You will be required to document reason for non-treatment if statin daily dose does not meet guidelines. HIGH DOSE STATIN THERAPY DAILY Atorvastatin > than or = to 40 mg Rosuvastatin > than or = to 20 mg Amlodipine + Atorvastatin > than or = to 2.5/40 mg Ezetimibe + Simvastatin 10/80 mg Simvastatin 80mg Discharge Plan Admission Admit Date/Time: 03/16/24 23:19 Attending Provider: Wang Garrett Primary Care Provider: Viraj Arias Consulting Providers: Harris Calderon; Babatunde Ibarra; Marlena Blackburn; Magdalena Bianchi; Rehana Garcia; Garrett Hwang; Leatha Abrams; Clint Sepulveda; Allan Portillo; Jarvis Sifuentes; Kristie Teran; Randal Kearns; Valerie Landrum; Parveen Taylor; Teddy Mir; Andrew Olivarez; Arvin Escobar; Greg Key; Maribel Flores; Lamberto Dickerson; Cezar Stone Instructions Forms: Work Excuse, Work / School Excuse Discharge Orders/Prescriptions Prescriptions: Continued aspirin [Adult Aspirin Regimen] 81 mg tablet,delayed release (DR/EC) 81 mg PO QODAY sertraline 100 mg tablet 100 mg PO DAILY Patient Comments: TAKE 1 TABLET BY MOUTHCDAILY buspirone 5 mg tablet 5 mg PO BID PRN (Reason: anxiety) atenolol 25 mg tablet 25 mg PO BID ramipril 10 mg capsule 10 mg PO DAILY Qty: 90 3RF methocarbamol 750 mg tablet See Rx Instructions .ROUTE .COMPLEX Qty: 180 5RF Rx Instructions: Take 1 tablet orally 3 times daily for 1 week then 2 tablets 3 times daily thereafter. diazepam 5 mg tablet 5 mg PO QDAY PRN (Reason: muscle spasm) Qty: 2 0RF Botox 200 unit recon soln 400 unit IM ONCE Qty: 2 0RF folic acid 1 mg tablet 1 mg PO DAILY Qty: 30 6RF atorvastatin 40 mg tablet 40 mg PO QHS Qty: 30 5RF acetaminophen [Tylenol] 325 mg Tablet 650 mg PO Q6H PRN PRN (Reason: PAIN) Qty: 0 0RF naltrexone 50 mg tablet 50 mg PO DAILY Referrals / Follow Up: Viraj Arias MD [Primary Care Provider] - Within 1 Week Disposition Disposition (needs filled in before D/C Order can be placed): Home, Self Care Charges/Coding Visit Charges Inpatient E&M: 20451 Disch Hosp >30min
== END 2024-03-18 13:11 | disposition home or self-care (01) ==
LOC: ED 22:57 → ICU 03-17 01:54 → PCU 03-17 22:21
PROVIDERS: Admitting Provider Internal Medicine; Emergency Provider Emergency Medicine; PCP Family Medicine; Referring Provider Internal Medicine; Visit Provider Family Medicine
DX: R29.898 Other symptoms and signs involving the musculoskeletal system (principal); I69.354 Hemiplegia and hemiparesis following cerebral infarction affecting left non-dominant side; F10.229 Alcohol dependence with intoxication, unspecified; E11.9 Type 2 diabetes mellitus without complications; Q21.12 Patent foramen ovale; F41.8 Other specified anxiety disorders; M25.512 Pain in left shoulder; R29.703 NIHSS score 3; E78.5 Hyperlipidemia, unspecified; E66.9 Obesity, unspecified; I69.322 Dysarthria following cerebral infarction; G89.29 Other chronic pain; I10 Essential (primary) hypertension; M25.522 Pain in left elbow; R53.81 Other malaise; D72.829 Elevated white blood cell count, unspecified; Z79.82 Long term (current) use of aspirin; I69.318 Other symptoms and signs involving cognitive functions following cerebral infarction; I69.392 Facial weakness following cerebral infarction; I69.398 Other sequelae of cerebral infarction; Z79.899 Other long term (current) drug therapy; M79.89 Other specified soft tissue disorders; Z68.30 Body mass index [BMI] 30.0-30.9, adult; Y90.6 Blood alcohol level of 120-199 mg/100 ml

== ENCOUNTER 2024-08-27 10:30 | Outpatient (RCR) | payer OTHER, SELFPAY ==
--- NOTE | 2024-08-03 09:45 | HP.PTEVAL ---
Patient's Visit Information Visit Information Visit Information: TRACY MANRIQUE Jr. is a 49 year old M referred to Physical Therapy by Dr. Gilberto Wylie MD with a diagnosis of Cerbral infarct, cramp and spasm L UE. Date of Evaluation: 08/03/24 Physical Therapist: Viraj Leary, DPT, OCS, CSCS Visit Plan Frequency: 2x /Week Duration: 4-6 Weeks Plan: 2x/week for 4 weeks for IE HEP: supine lie in T position with rolled towel under scap 3 min , supine lie cervical tucks 10x, supine lie stick flexion 15x, seated inferior L shoulder mobs with neck stretch 20 sec 5x all 2x/day with pics. Please treat with STM L neck scalenes, UT, rhomboids, stretch same and progress HEP, scapula mob s and shoulder PROM manually, progress to scap depression and serratus strength via HEP MH if available Subjective Subjective: Dr. Wylie sent over , botox in back of L shoulder as it is really tight since last week. Gets botox injections for 6 months typically in forearm. Had a stroke in 2021, botox has helped. Injections are to try and get more movement and less contracture. 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 Still doing exercises with weights and bands daily. Sleep is OK. 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 Typing is difficult but has been for 3 yrs, wants to be able to straighten arm. Mostly strengthening, not a llot of stretching. Wants to focus on arm, getting around OK Objective Objective: L side obviously effected with stroke. Holds arm in elbow flexion with elevated scapula on L and hand closed in posture. Walks I without AD with diminished motor control and tone in L LE, steppage but I. Head tilts to L slightly. Motor control in L UE and LE is diminished and has obvious tone. R UE WNL strength adn ROM, L UE scap depression is tight and poor, elevation is good on ROM and stregth 4+/5. retraction 4/5 strength but tends to stay protracted. B. wrist and hand and elbow strength are 4/5 in available ROM with high tone in flexors, ROM is tight and unable to fully extend elbow(-32) and will have surgery to lengthen tendons in September), ER L shoulder 50 and R 75, IR funcitonal past belt line B. elevation of L shoulder g-h 128 degrees L and 155 R. Scapula feels tight L on elevation. No winging noticed in scapula but tightness with movement on L in rhomboids, UT, scalenes, not overly tender. reflexes 1/3 L adn R bi and tri Sensation WNl to gross light touch B UE. Goals Goal 1:: I appropriate HEP to stretch adn move L scapula/shoulder Goal Time Frame: 2-4 Weeks Goal 2:: Pt feeel movement in L shoulder 75% improved and abkle to hold self in normal scap and shoulder psoition outside of elbow limtiations. Goal Time Frame: 2-4 Weeks Goal 3:: Put L hand behind head without pain or stretching Goal Time Frame: 2-4 Weeks Goal 4:: comfortab ly get L hand to typing posiiton without discomfort Goal Time Frame: 4-6 Weeks Rehabilitation Potential Physical Therapy Diagnosis: tightness in L scapula from tone and previous stroke limiting comfortable function and poisture. Rehabilitation Potential: Fair Anticipated Interventions Patient/Client Instruction: Educate patient on: Condition and Plan of Care For the Purpose of:: To decrease pain, To increase ROM, To improve nutrient delivery to tissue, To improve muscle performance and motor function, To increase tolerance to activity/condition/position and To improve ability of physical actions for home/community/work/leisure Therapeutic Exercise to Include: Strength training, Postural training, Flexibilty training, Relaxation training, Passive ROM and Active ROM For the Purpose of:: To decrease pain, To increase ROM, To improve nutrient delivery to tissue, To improve muscle performance and motor function, To increase tolerance to activity/condition/position and To improve ability of physical actions for home/community/work/leisure Manual Therapy Techniques to Include: Mobilization, Passive ROM and Soft tissue mobilization For the Purpose of:: To decrease pain, To increase ROM and To improve nutrient delivery to tissue Thermo therapy (hot pack): Yes For the Purpose of:: To improve nutrient delivery to tissue and To increase oxygenation perfusion Text: Thank you for the opportunity to evaluate your patient. For Medicare and Medicare HMO plans, please review the plan of care and approve it. It will need to be FAXED BACK to us at [phone] for Medicare purposes. For Medicare only, by signing this I certify the plan of care. Please let me know if there are questions or concerns regarding this plan of care. Physician Signature: Date:
--- NOTE | 2024-11-12 15:49 | HP.PT.NRP ---
Patient Information Patient Information: TRACY MANRIQUE Jr. was seen in my office for initial evaluation on 08/03/24. The following Plan of Care was established for this patient: POC Established Initial Frequency: 2x /Week Initial Duration: 4-6 Weeks Anticipated Interventions Patient/Client Instruction: Educate patient on: Condition and Plan of Care For the Purpose of:: To decrease pain, To increase ROM, To improve nutrient delivery to tissue, To improve muscle performance and motor function, To increase tolerance to activity/condition/position and To improve ability of physical actions for home/community/work/leisure Therapeutic Exercise to Include: Strength training, Postural training, Flexibilty training, Relaxation training, Passive ROM and Active ROM For the Purpose of:: To decrease pain, To increase ROM, To improve nutrient delivery to tissue, To improve muscle performance and motor function, To increase tolerance to activity/condition/position and To improve ability of physical actions for home/community/work/leisure Manual Therapy Techniques to Include: Mobilization, Passive ROM and Soft tissue mobilization For the Purpose of:: To decrease pain, To increase ROM and To improve nutrient delivery to tissue Thermo therapy (hot pack): Yes For the Purpose of:: To improve nutrient delivery to tissue and To increase oxygenation perfusion Last Seen Last Seen: This patient was last seen in our office 08/27/24. Pertinent comments regarding their Physical therapy will appear below: Ot seeen 4 visits of POC but then no showed for her future visits. At this point, it has been over 2 months and I will discontinue from my care. At this point I will be discontinuing this patient from physical therapy. I would be happy to see this patient again in the future if found appropriate by the physician. Thank you! Viraj Leary, DPT, OCS, CSCS
== END 2024-08-27 19:00 | disposition home or self-care (01) ==
LOC: PT 10:30
PROVIDERS: PCP Family Medicine; Referring Provider Psychiatry & Neurology Neurology; Visit Provider Psychiatry & Neurology Neurology
DX: I69.398 Other sequelae of cerebral infarction (principal); R25.2 Cramp and spasm
CPT/HCPCS: 97110; 97140; 97161